=== PATIENT | female | born 1955 | race Two or more races ===

== ENCOUNTER → 2019-08-25 | Outpatient (CLI) | payer MEDICARE, OTHER | END | disposition home or self-care (01) | LOC: SPEC 17:45 | PROVIDERS: ATTEND Podiatrist Foot & Ankle Surgery | DX: L97.529 Non-pressure chronic ulcer of other part of left foot with unspecified severity (principal) | CPT/HCPCS: 87071; 87075 ==

== ENCOUNTER 2019-09-22 10:19 | Day surgery (SDC) | payer MEDICARE, OTHER ==
[~2019-09-22] VITALS: Ht 144.8 cm; Wt 61.0 kg
[~2019-09-22 10:19] MED LIST: AMLO5TAB10 PO; ASPI81TA50 PO; ATOR80TA72 PO; CLOP75TA PO; GABA-585 PO; HYDROmorphone 2 MG/ML VIAL IV PRN; IV RINGERS,LACTATED 1000ML 1,000 ML IV SCH; LOSA25TA54 PO; METO-239 PO; MORPHINE SULFATE 2 MG/ML VIAL. IV PRN; ONDANSETRON PF 4 MG/2 ML VIAL. IV PRN; PROCHLORPERAZINE 10 MG/2 ML VIAL. IV PRN; SEVE800T9 PO; VANCOMYCIN 1GM IVPB FOR OMNI 250 ML IV PRN; fentaNYL PF VIAL 100 MCG/2 ML VIAL IV PRN
[2019-09-22] MEDS ORDERED: POVIDONE-IODINE 10% TOPICAL OINTMENT 28GM TUBE. TP ONE (10:42)
[2019-09-22] MEDS ORDERED: LIDOCAINE 1% Multi-Dose 20 ML VIAL. ONE (10:42)
[2019-09-22] MEDS ORDERED: BUPIVACAINE MPF 0.5% 30 ML VIAL. ONE (10:43)
[2019-09-22] MEDS ORDERED: DEXAMETHASONE SOD PHOS 4 MG/ML VIAL ONE (10:43)
[2019-09-22] MEDS ORDERED: ONDANSETRON PF 4 MG/2 ML VIAL. ONE (11:15)
[2019-09-22] MEDS ORDERED: DEXAMETHASONE SOD PHOS 20 MG/5 ML VIAL. ONE (11:15)
[2019-09-22] MEDS ORDERED: PROPOFOL 20 ML IV ONE (11:15)
[2019-09-22] MEDS ORDERED: LIDOCAINE 2% PF 5 ML VIAL. ONE (11:15)
[2019-09-22] MEDS ORDERED: MIDAZOLAM HCL/PF 2 MG/2 ML VIAL. ONE (11:17)
[2019-09-22] MEDS ORDERED: fentaNYL PF VIAL 100 MCG/2 ML VIAL ONE (11:17)
[2019-09-22] MEDS ORDERED: INSULIN LISPRO 100 UNIT/ML 3ML VIAL for OP,RR ONLY. SQ PRN (11:45)
[2019-09-22] MEDS ORDERED: IV NORMAL SALINE 1000ML BAG 1,000 ML IV ONE (11:45)
[2019-09-22 11:53] LABS: BASO # 0.1 x10^3/uL (0.0-0.2); BASO % 0 % (0-3); EOS # 0.4 x10^3/uL (0.0-0.7); EOS % 4 % (0-3); HEMATOCRIT 31.9 % (36.0-47.0); HEMOGLOBIN 10.4 g/dL (12.0-15.5); LYMPH # 2.5 x10^3/uL (1.0-4.8); LYMPH % 21 % (24-48); MEAN CORPUSCULAR HEMOGLOBIN 30 pg (25-35); MEAN CORPUSCULAR HGB CONC 33 g/dL (31-37); MEAN CORPUSCULAR VOLUME 91 fL (79-100); MONO # 0.9 x10^3/uL (0.0-1.1); MONO % 8 % (0-9); NEUT % 67 % (31-73); PLATELET COUNT 254 x10^3/uL (140-400); RED BLOOD COUNT 3.52 x10^6/uL (3.50-5.40); RED CELL DISTRIBUTION WIDTH 14.1 % (11.5-14.5); WHITE BLOOD COUNT 11.9 x10^3/uL (4.0-11.0)
[2019-09-22 12:21] LABS: CALCIUM 8.6 mg/dL (8.5-10.1); GFR 5.1
[2019-09-22 12:27] LABS: ALBUMIN 2.4 g/dL (3.4-5.0); ALBUMIN/GLOBULIN RATIO 0.5 (1.0-1.7); TOTAL BILIRUBIN 0.3 mg/dL (0.2-1.0); TOTAL PROTEIN 7.6 g/dL (6.4-8.2)
[2019-09-22 12:28] LABS: POTASSIUM 3.3 mmol/L (3.5-5.1)
--- NOTE | 2019-09-22 13:14 | PDOC4 ---
OPERATIVE NOTE: Surgeon: shelly Pre operative diagnosis: osteomyelitis 2nd toe left Post op diagnosis same Procedure: 2nd digit amputation left foot Anesthesia: mac with local Hemostasis: none EBL: 5mL Pathology: 2nd toe left foot intraoperative findings: note 2nd metatarsal head with no signs of infection. no proximal sinus tract. do note reulceration to distal 5th ray with granular base and no purulent drainage. note dry hemmorrhagic blister to plantar lateral left heel with no signs of infection. Patient tolerated procedure and transferred to PACU with VSS and VSI to left foot PILAR ALVARADO DPM Sep 22, 2019 13:14
--- NOTE | 2019-09-22 13:21 | SSS ---
ADMIT DATE: 09/22/2019 CHIEF COMPLAINT: Preop evaluation for left second toe amputation. HISTORY OF PRESENT ILLNESS: The patient is a pleasant middle-aged female who has multiple comorbidities. She is on dialysis, but overall clinically looks pretty good. She has a left second toe lesion. Dr. Villegas, one of our podiatrists has scheduled her for surgery today. We have been requested for preoperative evaluation. Currently being examined in the outpatient holding area. PAST MEDICAL HISTORY: Diabetes, hypertension, hyperlipidemia, end-stage renal disease and she is on dialysis, right above-knee amputation and peripheral vascular disease. ALLERGIES: None. FAMILY HISTORY: Diabetes. SOCIAL HISTORY: She does not drink, smoke or take drugs. MEDICATIONS: Reviewed, please refer to the MRAD. REVIEW OF SYSTEMS: GENERAL: No history of weight change, weakness or fevers. SKIN: No bruising, hair changes or rashes. EYES: No blurred, double or loss of vision. NOSE AND THROAT: No history of nosebleeds, hoarseness or sore throat. HEART: No history of palpitations, chest pain or shortness of breath on exertion. LUNGS: Denies cough, hemoptysis, wheezing or shortness of breath. GASTROINTESTINAL: Denies changes in appetite, nausea, vomiting, diarrhea or constipation. GENITOURINARY: No history of frequency, urgency, hesitancy or nocturia. NEUROLOGIC: Denies history of numbness, tingling, tremor or weakness. PSYCHIATRIC: No history of panic, anxiety or depression. ENDOCRINE: No history of heat or cold intolerance, polyuria or polydipsia. EXTREMITIES: She complains of left second toe pain. She has a right above-knee amputation. LABORATORY DATA: Electrolytes are sodium 138, potassium 3.3, chloride 98, bicarbonate 30, BUN 36, creatinine 8. White count 11.9, hemoglobin 10.4, platelets 254. ASSESSMENT AND PLAN: Left second toe infection and very mild hypokalemia, chronic renal failure. Clinically, the patient is at low risk for intraoperative complications. We will go ahead and clear her for surgery. I told the nurses to please give her 20 of potassium after surgery. Postoperatively, she is going to need aggressive wound care. If she needs to be arranged for usp, we can assist with that. Thank you very much for allowing us to participate in the care of this nice lady. MONSTER COWAN DO DR: Rommel JOB#: [id number] / [id number]
--- NOTE | 2019-09-22 13:58 | OP ---
DATE OF SURGERY: 09/22/2019 PREOPERATIVE DIAGNOSIS: Osteomyelitis, second toe. POSTOPERATIVE DIAGNOSIS: Osteomyelitis, second toe. PROCEDURE: Second digit amputation, left foot. SURGEON: Kay Villegas DPM. ANESTHESIA: MAC with local. HEMOSTASIS: None used. HISTORY OF PRESENT ILLNESS: The patient is a 64-year-old female with diabetes, peripheral neuropathy, peripheral vascular disease and previous history of a right lower extremity amputation. The patient has had a chronic wound with gangrene in the second toe and developed osteomyelitis confirmed with MRI of the second digit. She has been recently revascularized by Dr. Dunlap, who informed no further intervention prior to surgery required. Discussed with the patient risks, benefits, complications to include delayed or nonhealing, need for further surgery, loss of toe, foot, limb or life, infection, numbness, tingling, burning, chronic pain, blood clots to the leg or the lung, need for further surgery. DESCRIPTION OF PROCEDURE: The patient was transported to the operating room via a cart and placed on the operating room table in supine position. Final verification of the patient's surgery and limb was performed. IV sedation was given per anesthesia and a second ray block was given with a 1:1 mixture of 1% lidocaine plain and 0.5% Marcaine plain, 10 mL total. A well-padded tourniquet was placed over the left ankle; however, this was not utilized with the case. The left foot was prepped and draped in the usual aseptic manner. Attention was directed to the second digit, where 2 converging semielliptical incisions were made at the base of the second digit. This was deepened to the level of the MPJ. The digit was disarticulated at the metatarsophalangeal joint and removed and sent in toto to pathology. An intraoperative wound culture was then taken and the small vessels were cauterized. The skin incision was reapproximated with 4-0 nylon and a postoperative dressing was applied with Adaptic, Betadine-soaked gauze, 4 x 4, Kerlix bandage and added a 4 x 4 with Betadine to the lateral foot at the distal fifth amputation site. Note, re-ulceration to the distal site measures 1 x 1 x 0.3 cm with no exposed bone, no pustular drainage, also note dry hemorrhagic blister to the lateral plantar heel with no breakdown, no cellulitis, no color, no fluctuance at this time. We will resume home health 3 times a week with a dermal bandage to the lateral foot and light Betadine painted to the incision of the second ray. Also, recommend minimal weightbearing in surgical shoe and strict decubitus precautions to prevent further breakdown of the heel. The patient tolerated both anesthesia and procedure well, was given Bactrim double strength to begin p.o. b.i.d. Note, she was given IV vancomycin 1 gram preoperatively and then also she was given home with [place] 325/5 take 1 tablet every 4 hours as needed for pain, dispensed #20. KAY VILLEGAS DPM DR: Josue JOB#: [id number] / [id number]
[2019-09-22] MEDS ORDERED: HYDR-3164 PO (14:06)
[2019-09-22] MEDS ORDERED: SULF1TAB24 PO (14:07)
[2019-09-22 14:09] VITALS: BP 152/54
[2019-09-22] MEDS ORDERED: HYDROcodone/APAP 5/325MG 1 TAB TABLET PO ONE (14:15)
--- NOTE | 2019-09-22 17:52 | RAD ---
3 views left foot HISTORY: Second toe amputation AP lateral oblique views Is been interpretation of the second toe. There is prior medication the fifth toe at the distal third of the fifth metatarsal. There is arterial calcifications. The remaining visualized osseous structures appear grossly intact. There is ossification of the plantar fascia. IMPRESSION: 1. Status post amputation of the second toe. 2. Prior amputation of the fifth toe through the distal fifth metatarsal. Electronically signed by: Akil De Leon III, MD (09/22/2019 5:49 PM) [id number]
--- NOTE | 2019-09-26 16:06 | PATHOLOGY ---
[facility] Accession Number: [id number] . 01 Material submitted: . toe - SECOND TOE LEFT FOOT. Modifiers: second, left . 01 Clinical history: . Osteomyelitis second toe . 02 Diagnosis: Left second toe amputation: - Acute cellulitis and osteomyelitis of distal toe, focal. (JPM:brandan; 09/26/2019) QMS 09/26/2019 1506 Local . 02 Comment: The proximal skin, subcutaneous tissue, and bone amputation margin are negative for inflammation. (JPM:brandan; 09/26/2019) . 02 Electronically signed: . Abdullahi Ashby MD, Pathologist NPI- [id number] . 01 Gross description: . The specimen is received in formalin, labeled "Ida Lynn, second toe left foot". Received is an amputated digit measuring 5.3 x 2.2 x 1.9 cm in greatest dimensions. The bone margin is smooth and concave in appearance, consistent with disarticulation. The bone and soft tissue margins are inked black. The nail is present displaying a pale whelan to light whelan and thickened appearance. On the medial aspect of the specimen adjacent to the nailbed, there is a poorly circumscribed irregular in contour and light brown lesion measuring 1.8 x 1.0 cm, which is 1.1 cm from the closest skin margin. The remainder the epidermal surface is dusky guevara-brown to white-guevara and flaky in appearance. A full-thickness longitudinal cross-section is submitted from proximal to distal aspects in cassettes A1 through A3, following decalcification. (CAA; 09/25/2019) QAC/QAC 09/26/2019 1320 Local . 02 Pathologist provided ICD-10: M86.172 . 02 CPT . 303259, [id number] Specimen Comment: A courtesy copy of this report has been sent to [phone], [phone] Specimen Comment: [id number] Specimen Comment: Report sent to / DR HORN Performed at: 01 [facility] [address] [id number] MD Vladimir Jacome MD Phone: [phone] Performed at: 02 [facility] [address] [place], [place] [id number] MD Abdullahi Ashby MD Phone: [phone]
== END 2019-09-22 14:41 | disposition home or self-care (01) ==
LOC: SURG 10:19
PROVIDERS: ATTEND Podiatrist Foot & Ankle Surgery
DX: M86.8X7 Other osteomyelitis, ankle and foot (principal); E11.22 Type 2 diabetes mellitus with diabetic chronic kidney disease; I12.0 Hypertensive chronic kidney disease with stage 5 chronic kidney disease or end stage renal disease; N18.6 End stage renal disease; E11.69 Type 2 diabetes mellitus with other specified complication; E11.42 Type 2 diabetes mellitus with diabetic polyneuropathy; E78.00 Pure hypercholesterolemia, unspecified; Z98.42 Cataract extraction status, left eye; Z87.891 Personal history of nicotine dependence; Z86.73 Personal history of transient ischemic attack (TIA), and cerebral infarction without residual deficits; Z98.41 Cataract extraction status, right eye; Z96.1 Presence of intraocular lens; Z79.4 Long term (current) use of insulin
CPT/HCPCS: 28820; 36415; 73630; 80053; 82962; 85025; 87071; 87075; A7015; J1815; J2001; J2250; J2405; J2704; J3010; J3370; J3490; J1100

== ENCOUNTER 2020-02-02 12:39 | Inpatient (IN) | payer MEDICARE, OTHER ==
[~2020-02-02] VITALS: Ht 106.7 cm; Wt 48.1 kg
[~2020-02-02 12:39] MED LIST changes: +HYDR-3164 PO; -HYDROmorphone 2 MG/ML VIAL IV PRN; -IV RINGERS,LACTATED 1000ML 1,000 ML IV SCH; -MORPHINE SULFATE 2 MG/ML VIAL. IV PRN; -ONDANSETRON PF 4 MG/2 ML VIAL. IV PRN; -PROCHLORPERAZINE 10 MG/2 ML VIAL. IV PRN; +SULF1TAB24 PO; -VANCOMYCIN 1GM IVPB FOR OMNI 250 ML IV PRN; -fentaNYL PF VIAL 100 MCG/2 ML VIAL IV PRN
[2020-02-02] MEDS ORDERED: IV NORMAL SALINE 500ML BAG 500 ML IV ONE ×3 (13:15→14:45)
[2020-02-02] MEDS ORDERED: VANCOMYCIN PER PHARMACY MC PRN (13:30)
[2020-02-02] MEDS ORDERED: PIP/TAZO PER PHARMACY MC PRN ×2 (13:30→16:00)
[2020-02-02 13:35] LABS: BASO # 0.1 x10^3/uL (0.0-0.2); BASO % 1 % (0-3); EOS % 0 % (0-3); HEMATOCRIT 40.3 % (36.0-47.0); HEMOGLOBIN 13.4 g/dL (12.0-15.5); LYMPH # 2.9 x10^3/uL (1.0-4.8); LYMPH % 16 % (24-48); MEAN CORPUSCULAR HEMOGLOBIN 33 pg (25-35); MEAN CORPUSCULAR HGB CONC 33 g/dL (31-37); MEAN CORPUSCULAR VOLUME 98 fL (79-100); MONO # 1.1 x10^3/uL (0.0-1.1); MONO % 6 % (0-9); NEUT # 14.1 x10^3/uL (1.8-7.7); NEUT % 77 % (31-73); PLATELET COUNT 310 x10^3/uL (140-400); RED CELL DISTRIBUTION WIDTH 17.5 % (11.5-14.5); WHITE BLOOD COUNT 18.2 x10^3/uL (4.0-11.0)
[2020-02-02 13:41] LABS: BASE EXCESS COOX -1 mmol/L (-3-3); HCO3 COOX 21 mmol/L (21-28); METHEMOGLOBIN 0.3 % (0.0-1.9); PCO2 COOX 28 mmHg (35-46); PO2 COOX 153 mmHg (65-108); SAT O2 COOX 99 % (92-99)
--- NOTE | 2020-02-02 13:50 | RAD ---
AP chest. HISTORY: Hypoxia AP view was taken of the chest. Lungs are free of infiltrates. Heart is normal in size. There is no effusion. There is mild bowel distention the abdomen. IMPRESSION: 1. No acute infiltrates. Electronically signed by: Dequan Murry MD (02/02/2020 1:48 PM) [id number]
[2020-02-02] MEDS ORDERED: PIPERACILLIN/TAZOBACTAM 2.25 GM in IV NORMAL SALINE 50ML 50 ML IV ONE (14:00)
[2020-02-02 14:21] LABS: ALBUMIN 1.7 g/dL (3.4-5.0); CALCIUM 8.2 mg/dL (8.5-10.1); CREATININE 6.5 mg/dL (0.6-1.0); DIRECT BILIRUBIN 0.1 mg/dL (0.0-0.2); GFR 6.4; MAGNESIUM 1.6 mg/dL (1.8-2.4); TOTAL BILIRUBIN 0.3 mg/dL (0.2-1.0); TOTAL PROTEIN 7.3 g/dL (6.4-8.2)
[2020-02-02 14:30] LABS: % BANDS 2 % (0-9); % LYMPHS 17 % (24-48); % MONOS 3 % (0-10); % SEGS 78 % (35-66); ANISOCYTOSIS SLIGHT; PLATELET CLUMP PRESENT; PLT ESTIMATE ADEQUATE (ADEQUATE)
[2020-02-02] MEDS ORDERED: VANCOMYCIN 1.5 GM in IV NORMAL SALINE 500ML BAG 500 ML IV ONE (14:30)
[2020-02-02 14:35] LABS: POTASSIUM 2.7 mmol/L (3.5-5.1)
--- NOTE | 2020-02-02 14:36 | RAD ---
CT HEAD INDICATION: Generalized weakness COMPARISON: None Available. Exposure: One or more of the following individualized dose reduction techniques were utilized for this examination: 1. Automated exposure control 2. Adjustment of the mA and/or kV according to patient size 3. Use of iterative reconstruction technique TECHNIQUE: 5 mm contiguous axial images were obtained from the skull base to the vertex in both bone and soft tissue algorithm. FINDINGS: Mild bilateral periventricular white matter hypodensities likely chronic small vessel ischemic disease. No evidence of acute intracranial hemorrhage. No extra-axial fluid collections. No mass effect or midline shift. Ventricular size is appropriate. Basal cisterns are patent. No fractures identified.Garrido-white differentiation is preserved.Globes and orbits are within normal limits. Paranasal sinuses and mastoid air cells are clear. IMPRESSION: No acute intracranial findings. Electronically signed by: Jhoan Wen MD (02/02/2020 2:34 PM) [id number]
[2020-02-02] MEDS ORDERED: NOREPINEPHRINE VIAL 8 MG in IV DEXTROSE 5% 250 ML IV ONE (14:45)
[2020-02-02] MEDS ORDERED: MAGNESIUM SULFATE 2GM 50 ML IV ONE (15:30)
[2020-02-02] MEDS ORDERED: 0.9 % SODIUM CHLORIDE 10 ML DISP.SYRIN. IV PRN (15:45)
[2020-02-02] MEDS ORDERED: DEXTROSE 50% 25 GM / 50ML DISP.SYRIN. IV PRN (16:00)
--- NOTE | 2020-02-02 16:10 | PDOC1 ---
History and Physical Date of Admission Date of Admission DATE: 02/02/20 TIME: 15:57 Identification/Chief Complaint Chief Complaint weakness Problems: (1) Hypotension Source Source: Chart review, Patient History of Present Illness History of Present Illness 64 year old female with hx of DM, ESRD on PD for 6 years, HTN, PVD s/p AKA bilaterally who presents to the ED with chief complaint of generalized weakness, nausea and vomiting for 2-3 days. decreased PO intake. no fever or respiratory symptoms. endorses a funny taste on her tongue that she has difficulty describing. no diarrhea. no sick contacts. was at the wound clinic for routine check up of her Left AKA that was done in December 2018. she wasn't feeling good so came to the ED for eval. found to have SBP in 50s. WBC 18k K 2.7 Mg 1.6 trop 0.[address] head negative. CVL to be placed by ER doctor. Past Medical History Past Medical History HTN, DM, ESRD on PD, PVD s/p bilateral AKA Past Surgical History Past Surgical History bilateral AKA Family History Family History reviewed and denies Social History Smoke: No ALCOHOL: none Drugs: None Current Medications Current Medications Current Medications Sodium Chloride 500 ml @ 500 mls/hr 1X ONCE IV Last administered on 02/02/20at 13:15; Start 02/02/20 at 13:15; Stop 02/02/20 at 14:14; Status DC Piperacillin Sod/ Tazobactam Sod (Zosyn Per Pharmacy) 1 each PRN DAILY PRN MC SEE COMMENTS; Start 02/02/20 at 13:30; Status UNV Vancomycin HCl (Vanco Per Pharmacy) 1 each PRN DAILY PRN MC SEE COMMENTS; Start 02/02/20 at 13:30; Status UNV Piperacillin Sod/ Tazobactam Sod 2.25 gm/Sodium Chloride 50 ml @ 100 mls/hr 1X ONCE IV Last administered on 02/02/20at 13:50; Start 02/02/20 at 14:00; Stop 02/02/20 at 14:29; Status DC Vancomycin HCl 1.5 gm/Sodium Chloride 500 ml @ 250 mls/hr 1X ONCE IV Last administered on 02/02/20at 13:50; Start 02/02/20 at 14:30; Stop 7/17/20 at 16:29 Potassium Chloride/Water 100 ml @ 50 mls/hr Q1H IV ; Start 02/02/20 at 15:00; Stop 02/02/20 at 16:59 Norepinephrine Bitartrate 8 mg/ Dextrose 258 ml @ 12.926 mls/ hr 1X ONCE IV ; Start 02/02/20 at 14:45; Stop 02/03/20 at 10:42 Sodium Chloride 500 ml @ 500 mls/hr 1X ONCE IV Last administered on 02/02/20at 13:50; Start 02/02/20 at 14:45; Stop 02/02/20 at 15:44; Status DC Sodium Chloride 500 ml @ 500 mls/hr 1X ONCE IV ; Start 02/02/20 at 14:45; Stop 02/02/20 at 15:44; Status DC Magnesium Sulfate 50 ml @ 25 mls/hr 1X ONCE IV ; Start 02/02/20 at 15:30; Stop 02/02/20 at 17:29 Acetaminophen (Tylenol) 650 mg PRN Q6HRS PRN PO Headaches, Temp > 101.5'; Start 02/02/20 at 15:45 Famotidine (Pepcid Vial) 20 mg QHS IVP ; Start 02/02/20 at 21:00 Info (Icu Electrolyte Protocol) 1 ea DAILY MC ; Start 02/03/20 at 09:00 Heparin Sodium (Porcine) (Heparin Sodium) 5,000 unit Q12HR SQ ; Start 02/02/20 at 21:00 Sodium Chloride (Normal Saline Flush) 3 ml QSHIFT PRN IV AFTER MEDS AND BLOOD DRAWS; Start 02/02/20 at 15:45 Senna/Docusate Sodium (Senna Plus) 1 tab BID PO ; Start 02/02/20 at 21:00 Potassium Chloride/Sodium Chloride 1,000 ml @ 0 mls/hr Q0M ONCE IV ; Start 02/02/20 at 16:00; Stop 02/02/20 at 16:01; Status UNV Piperacillin Sod/ Tazobactam Sod (Zosyn Per Pharmacy) 1 each PRN DAILY PRN MC SEE COMMENTS; Start 02/02/20 at 16:00; Status UNV Vancomycin HCl (Vanco Per Pharmacy) 1 each PRN DAILY PRN MC SEE COMMENTS; Start 02/02/20 at 16:00; Status UNV Insulin Human Lispro (HumaLOG) 0-7 UNITS TIDWMEALS SQ ; Start 02/02/20 at 17:00; Status UNV Dextrose (Dextrose 50%-Water Syringe) 12.5 gm PRN Q15MIN PRN IV SEE COMMENTS; Start 02/02/20 at 16:00; Status UNV Active Scripts Active Reported Bactrim Ds Tablet (Sulfamethoxazole/Trimethoprim) 1 Each Tablet 1 Tab PO BID 10 Days [place] 5-325 Tablet (Acetaminophen/Hydrocodone Bitart) 1 Each Tablet 1 Tab PO Q4-6HRS Amlodipine Besylate 5 Mg Tablet 5 Mg PO DAILY Aspir-Low (Aspirin) 81 Mg Tablet.dr 81 Mg PO DAILY Renvela (Sevelamer Carbonate) 800 Mg Tablet 800 Mg PO TIDWMEALS Atorvastatin Calcium 80 Mg Tablet 80 Mg PO QHS Gabapentin (Gabapentin) 100 Mg Capsule 100 Mg PO TID Losartan Potassium (Losartan Potassium) 25 Mg Tablet 25 Mg PO DAILY Metoprolol Succinate ( Xl ) (Metoprolol Succinate) 25 Mg Tab.er.24h 25 Mg PO BID Clopidogrel (Clopidogrel Bisulfate) 75 Mg Tablet 75 Mg PO DAILY Allergies Allergies: Coded Allergies: I S O L A T I O N *CONTACT* (Verified Allergy, Unknown, MRSA, 09/21/19) ROS Review of System CONSTITUTIONAL: No fever or chills EYES: No recent changes SKIN: No rash or itching CARDIOVASCULAR: No chest pain, syncope, palpitations, or edema RESPIRATORY: No SOB or cough GASTROINTESTINAL: No nausea, vomiting or abdominal pain NEUROLOGICAL: No headaches or weakness ENDOCRINE: No cold or heat intolerance GENITOURINARY: No urgency or frequency of urination MUSCULOSKELETAL: No back pain or joint pain LYMPHATICS: No enlarged lymph nodes PSYCHIATRIC: No anxiety or depression Physical Exam Physical Exam GENERAL: No apparent distress. Alert and oriented. lethargic HEENT: Head normocephalic, atraumatic. NECK: Supple LUNGS: Clear to auscultation. HEART: RRR, S1, S2 present, pulses intact ABDOMEN: Soft, positive bowel sounds. EXTREMITIES: No cyanosis or edema. NEUROLOGIC: Normal speech, normal tone PSYCHIATRIC: Normal affect, normal mood. SKIN: No ulceration. sacral dec stage 1 POA bilateral AKA + PD catheter Vitals Vitals Vital Signs Date Time Temp Pulse Resp B/P (MAP) Pulse Ox O2 Delivery O2 Flow Rate FiO2 02/02/20 13:35 Nasal Cannula 4.0 02/02/20 12:42 98.3 88 14 73/36 (48) 95 98.3 Labs Labs Laboratory Tests Test 02/02/20 13:00 02/02/20 13:20 02/02/20 13:35 White Blood Count 18.2 x10^3/uL (4.0-11.0) Red Blood Count 4.10 x10^6/uL (3.50-5.40) Hemoglobin 13.4 g/dL (12.0-15.5) Hematocrit 40.3 % (36.0-47.0) Mean Corpuscular Volume 98 fL (79-100) Mean Corpuscular Hemoglobin 33 pg (25-35) Mean Corpuscular Hemoglobin Concent 33 g/dL (31-37) Red Cell Distribution Width 17.5 % (11.5-14.5) Platelet Count 310 x10^3/uL (140-400) Neutrophils (%) (Auto) 77 % (31-73) Lymphocytes (%) (Auto) 16 % (24-48) Monocytes (%) (Auto) 6 % (0-9) Eosinophils (%) (Auto) 0 % (0-3) Basophils (%) (Auto) 1 % (0-3) Neutrophils # (Auto) 14.1 x10^3/uL (1.8-7.7) Lymphocytes # (Auto) 2.9 x10^3/uL (1.0-4.8) Monocytes # (Auto) 1.1 x10^3/uL (0.0-1.1) Eosinophils # (Auto) 0.0 x10^3/uL (0.0-0.7) Basophils # (Auto) 0.1 x10^3/uL (0.0-0.2) Segmented Neutrophils % 78 % (35-66) Band Neutrophils % 2 % (0-9) Lymphocytes % 17 % (24-48) Monocytes % 3 % (0-10) Platelet Estimate Adequate (ADEQUATE) Platelet Clumps, EDTA Present Anisocytosis Slight Sodium Level 136 mmol/L (136-145) Potassium Level 2.7 mmol/L (3.5-5.1) Chloride Level 93 mmol/L (98-107) Carbon Dioxide Level 26 mmol/L (21-32) Anion Gap 17 (6-14) Blood Urea Nitrogen 33 mg/dL (7-20) Creatinine 6.5 mg/dL (0.6-1.0) Estimated GFR (Cockcroft-Gault) 6.4 Glucose Level 201 mg/dL (70-99) Lactic Acid Level 5.1 mmol/L (0.4-2.0) Calcium Level 8.2 mg/dL (8.5-10.1) Magnesium Level 1.6 mg/dL (1.8-2.4) Total Bilirubin 0.3 mg/dL (0.2-1.0) Direct Bilirubin 0.1 mg/dL (0.0-0.2) Aspartate Amino Transf (AST/SGOT) 22 U/L (15-37) Alanine Aminotransferase (ALT/SGPT) 13 U/L (14-59) Alkaline Phosphatase 90 U/L (46-116) Troponin I Quantitative 0.160 ng/mL (0.000-0.055) OW-Tzp-K-Type Natriuretic Peptide 86216 pg/mL (0-124) Total Protein 7.3 g/dL (6.4-8.2) Albumin 1.7 g/dL (3.4-5.0) Lipase 46 U/L (73-393) O2 Saturation 99 % (92-99) Arterial Blood pH 7.51 (7.35-7.45) Arterial Blood pCO2 at Patient Temp 28 mmHg (35-46) Arterial Blood pO2 at Patient Temp 153 mmHg (65-108) Arterial Blood HCO3 21 mmol/L (21-28) Arterial Blood Base Excess -1 mmol/L (-3-3) Oxyhemoglobin 98.0 % Methemoglobin 0.3 % (0.0-1.9) Carbon Monoxide, Quantitative 0.3 % (0.0-1.9) FiO2 36 Laboratory Tests Test 02/02/20 13:00 02/02/20 13:20 02/02/20 13:35 White Blood Count 18.2 x10^3/uL (4.0-11.0) Red Blood Count 4.10 x10^6/uL (3.50-5.40) Hemoglobin 13.4 g/dL (12.0-15.5) Hematocrit 40.3 % (36.0-47.0) Mean Corpuscular Volume 98 fL (79-100) Mean Corpuscular Hemoglobin 33 pg (25-35) Mean Corpuscular Hemoglobin Concent 33 g/dL (31-37) Red Cell Distribution Width 17.5 % (11.5-14.5) Platelet Count 310 x10^3/uL (140-400) Neutrophils (%) (Auto) 77 % (31-73) Lymphocytes (%) (Auto) 16 % (24-48) Monocytes (%) (Auto) 6 % (0-9) Eosinophils (%) (Auto) 0 % (0-3) Basophils (%) (Auto) 1 % (0-3) Neutrophils # (Auto) 14.1 x10^3/uL (1.8-7.7) Lymphocytes # (Auto) 2.9 x10^3/uL (1.0-4.8) Monocytes # (Auto) 1.1 x10^3/uL (0.0-1.1) Eosinophils # (Auto) 0.0 x10^3/uL (0.0-0.7) Basophils # (Auto) 0.1 x10^3/uL (0.0-0.2) Segmented Neutrophils % 78 % (35-66) Band Neutrophils % 2 % (0-9) Lymphocytes % 17 % (24-48) Monocytes % 3 % (0-10) Platelet Estimate Adequate (ADEQUATE) Platelet Clumps, EDTA Present Anisocytosis Slight Sodium Level 136 mmol/L (136-145) Potassium Level 2.7 mmol/L (3.5-5.1) Chloride Level 93 mmol/L (98-107) Carbon Dioxide Level 26 mmol/L (21-32) Anion Gap 17 (6-14) Blood Urea Nitrogen 33 mg/dL (7-20) Creatinine 6.5 mg/dL (0.6-1.0) Estimated GFR (Cockcroft-Gault) 6.4 Glucose Level 201 mg/dL (70-99) Lactic Acid Level 5.1 mmol/L (0.4-2.0) Calcium Level 8.2 mg/dL (8.5-10.1) Magnesium Level 1.6 mg/dL (1.8-2.4) Total Bilirubin 0.3 mg/dL (0.2-1.0) Direct Bilirubin 0.1 mg/dL (0.0-0.2) Aspartate Amino Transf (AST/SGOT) 22 U/L (15-37) Alanine Aminotransferase (ALT/SGPT) 13 U/L (14-59) Alkaline Phosphatase 90 U/L (46-116) Troponin I Quantitative 0.160 ng/mL (0.000-0.055) EC-Luu-D-Type Natriuretic Peptide 68734 pg/mL (0-124) Total Protein 7.3 g/dL (6.4-8.2) Albumin 1.7 g/dL (3.4-5.0) Lipase 46 U/L (73-393) O2 Saturation 99 % (92-99) Arterial Blood pH 7.51 (7.35-7.45) Arterial Blood pCO2 at Patient Temp 28 mmHg (35-46) Arterial Blood pO2 at Patient Temp 153 mmHg (65-108) Arterial Blood HCO3 21 mmol/L (21-28) Arterial Blood Base Excess -1 mmol/L (-3-3) Oxyhemoglobin 98.0 % Methemoglobin 0.3 % (0.0-1.9) Carbon Monoxide, Quantitative 0.3 % (0.0-1.9) FiO2 36 VTE Prophylaxis Ordered VTE Prophylaxis Devices: Yes VTE Pharmacological Prophylaxi: Yes Assessment/Plan Assessment/Plan ASSESSMENT/PLAN Septic Shock, unclear source: admit to ICU, broad spectrum abx, blood cultures. check for covid 19. IVF. CVL placement; ICU consult Sacral Decub Ulcer stage 1 POA: wound care consult lactic acidosis: trend lactate Hypokalemia: replete IV HypoMagnesemia: replete IV ESRD on PD: nephro consult for dialysis Leukocytosis: trend CBC Nausea and Vomiting: supportive care Elevated Trop: likely demand ischemia; consult cards Elevated BNP: check echo DVT PPX GI PPX diet: CLD FULL CODE med rec pending review and completion. Justicifation of Admission Dx: Justifications for Admission: Justification of Admission Dx: Yes Sepsis: Infection GELY HOLDER MD Feb 02, 2020 16:10
--- NOTE | 2020-02-02 16:27 | RAD ---
EXAM: AP View of the chest DATE: 02/02/2020 4:00 PM INDICATION: Central line placement COMPARISON: 02/02/2020 FINDINGS: Right IJ vascular catheter tip terminates overlying the distal SVC. The heart is not enlarged. Mediastinal and hilar contours are normal. No focal parenchymal airspace opacity. No pleural effusion or pneumothorax. IMPRESSION: 1. Right IJ tip projects over the distal SVC. 2. No acute infiltrates are seen. Electronically signed by: Cain Liang MD (02/02/2020 4:24 PM) [id number]
--- NOTE | 2020-02-02 16:30 | PHYS DOC ---
Past Medical History Past Medical History: Diabetes-Type II, Renal Failure, Stroke Additional Past Medical Histor: Peritoneal dialysis Past Surgical History: Other Additional Past Surgical Histo: RIGHT AKA Smoking Status: Former Smoker Alcohol Use: None General Adult EDM: Chief Complaint: WEAKNESS/GENERALIZED HPI: HPI: 64-year-old female presents emergency department today with generalized weakness. Her weakness is been present for about a week. She reports not eating anything for about a week. Her daughter is here with her. She denies of focal weakness. She denies vision changes or fever. She denies cough or fever. She was just seen at wound clinic prior to coming in. On arrival she has a very low blood pressure. Location generalized. Duration constant. No alleviating factors. Review of systems negative for chest pain shortness of breath abdominal pain vomiting. Positive for decreased oral intake. All other review of systems negative. ED course: 64-year-old female presenting with generalized weakness found to be hypotensive in the emergency department. IV fluids and broad-spectrum antibiotics were initiated out of concern for possible sepsis. Patient was somewhat fluid responsive but required norepinephrine to bring her map above 65. CBC shows leukocytosis with segmented neutrophils increased. Chemistry panel shows low potassium and low CO2 on chemistry end-stage renal disease lactic acid of 5.1 with an elevated troponin and proBNP. ABG shows a pH is 7.51 with a normal PaO2. Head CT unremarkable. Initial chest x-ray shows no acute infiltrates. Repeat x-ray performed after central line placed. Will admit the patient to the ICU for further treatment and care. I spoke with Dr. Stinson who accepts patient for admission. Heart Score: Risk Factors: Risk Factors: DM, Current or recent (<one month) smoker, HTN, HLP, family history of CAD, obesity. Risk Scores: Score 0 - 3: 2.5% MACE over next 6 weeks - Discharge Home Score 4 - 6: 20.3% MACE over next 6 weeks - Admit for Clinical Observation Score 7 - 10: 72.7% MACE over next 6 weeks - Early Invasive Strategies Current Medications: Current Medications Medications (Trade) Dose Ordered Sig/Juanito Start Time Stop Time Status Last Admin Dose Admin Acetaminophen (Tylenol) 650 mg PRN Q6HRS PRN 02/02/20 15:45 Aspirin (Ecotrin) 81 mg DAILY 02/03/20 09:00 UNV Clopidogrel Bisulfate (Plavix) 75 mg DAILY 02/03/20 09:00 UNV Dextrose (Dextrose 50%-Water Syringe) 12.5 gm PRN Q15MIN PRN 02/02/20 16:00 Famotidine (Pepcid Vial) 20 mg QHS 02/02/20 21:00 Heparin Sodium (Porcine) (Heparin Sodium) 5,000 unit Q12HR 02/02/20 21:00 Info (Icu Electrolyte Protocol) 1 ea DAILY 02/03/20 09:00 Insulin Human Lispro (HumaLOG) 0-7 UNITS TIDWMEALS 02/02/20 17:00 Magnesium Sulfate 50 ml @ 25 mls/hr 1X ONCE 02/02/20 15:30 02/02/20 17:29 Norepinephrine Bitartrate 8 mg/ Dextrose 258 ml @ 12.926 mls/ hr 1X ONCE 02/02/20 14:45 02/03/20 10:42 Piperacillin Sod/ Tazobactam Sod (Zosyn Per Pharmacy) 1 each PRN DAILY PRN 02/02/20 16:00 UNV Piperacillin Sod/ Tazobactam Sod 2.25 gm/Sodium Chloride 50 ml @ 100 mls/hr 1X ONCE 02/02/20 14:00 02/02/20 14:29 DC 02/02/20 13:50 100 MLS/HR Potassium Chloride/Sodium Chloride 1,000 ml @ 0 mls/hr Q0M ONCE 02/02/20 16:00 02/02/20 16:01 UNV Potassium Chloride/Water 100 ml @ 50 mls/hr Q1H 02/02/20 15:00 02/02/20 16:59 Senna/Docusate Sodium (Senna Plus) 1 tab BID 02/02/20 21:00 Sodium Chloride (Normal Saline Flush) 3 ml QSHIFT PRN 02/02/20 15:45 Vancomycin HCl (Vanco Per Pharmacy) 1 each PRN DAILY PRN 02/02/20 16:00 UNV Vancomycin HCl 1.5 gm/Sodium Chloride 500 ml @ 250 mls/hr 1X ONCE 02/02/20 14:30 02/02/20 16:29 02/02/20 13:50 250 MLS/HR Allergies: Allergies: Allergies Coded Allergies Type Severity Reaction Last Updated Verified I S O L A T I O N *CONTACT* Allergy Unknown MRSA 09/21/19 Yes Physical Exam: PE: Constitutional: Well developed, well nourished, no acute distress, non-toxic appearance. [] HENT: Normocephalic, atraumatic, bilateral external ears normal, oropharynx moist, no oral exudates, nose normal. [] Eyes: PERRLA, EOMI, conjunctiva normal, no discharge. [] Neck: Normal range of motion, no tenderness, supple, no stridor. [] Cardiovascular:Heart rate regular rhythm, no murmur [] Lungs & Thorax: Bilateral breath sounds clear to auscultation [] Abdomen: Bowel sounds normal, soft, no tenderness, no masses, no pulsatile masses. [] Skin: Warm, dry, no erythema, no rash. [] Back: No tenderness, no CVA tenderness. [] Extremities: No tenderness, no cyanosis, no clubbing, ROM intact, no edema. [] Neurologic: Alert and oriented X 3, normal motor function, normal sensory function, no focal deficits noted. [] Psychologic: Affect normal, judgement normal, mood normal. [] Current Patient Data: Labs: Laboratory Tests Test 02/02/20 13:00 02/02/20 13:20 02/02/20 13:35 White Blood Count 18.2 x10^3/uL (4.0-11.0) H Red Blood Count 4.10 x10^6/uL (3.50-5.40) Hemoglobin 13.4 g/dL (12.0-15.5) Hematocrit 40.3 % (36.0-47.0) Mean Corpuscular Volume 98 fL (79-100) Mean Corpuscular Hemoglobin 33 pg (25-35) Mean Corpuscular Hemoglobin Concent 33 g/dL (31-37) Red Cell Distribution Width 17.5 % (11.5-14.5) H Platelet Count 310 x10^3/uL (140-400) Neutrophils (%) (Auto) 77 % (31-73) H Lymphocytes (%) (Auto) 16 % (24-48) L Monocytes (%) (Auto) 6 % (0-9) Eosinophils (%) (Auto) 0 % (0-3) Basophils (%) (Auto) 1 % (0-3) Neutrophils # (Auto) 14.1 x10^3/uL (1.8-7.7) H Lymphocytes # (Auto) 2.9 x10^3/uL (1.0-4.8) Monocytes # (Auto) 1.1 x10^3/uL (0.0-1.1) Eosinophils # (Auto) 0.0 x10^3/uL (0.0-0.7) Basophils # (Auto) 0.1 x10^3/uL (0.0-0.2) Segmented Neutrophils % 78 % (35-66) H Band Neutrophils % 2 % (0-9) Lymphocytes % 17 % (24-48) L Monocytes % 3 % (0-10) Platelet Estimate Adequate (ADEQUATE) Platelet Clumps, EDTA Present Anisocytosis Slight Sodium Level 136 mmol/L (136-145) Potassium Level 2.7 mmol/L (3.5-5.1) *L Chloride Level 93 mmol/L (98-107) L Carbon Dioxide Level 26 mmol/L (21-32) Anion Gap 17 (6-14) H Blood Urea Nitrogen 33 mg/dL (7-20) H Creatinine 6.5 mg/dL (0.6-1.0) H Estimated GFR (Cockcroft-Gault) 6.4 Glucose Level 201 mg/dL (70-99) H Lactic Acid Level 5.1 mmol/L (0.4-2.0) *H Calcium Level 8.2 mg/dL (8.5-10.1) L Magnesium Level 1.6 mg/dL (1.8-2.4) L Total Bilirubin 0.3 mg/dL (0.2-1.0) Direct Bilirubin 0.1 mg/dL (0.0-0.2) Aspartate Amino Transferase (AST) 22 U/L (15-37) Alanine Aminotransferase (ALT) 13 U/L (14-59) L Alkaline Phosphatase 90 U/L (46-116) Troponin I Quantitative 0.160 ng/mL (0.000-0.055) [id number]-Type Natriuretic Peptide 46928 pg/mL (0-124) H Total Protein 7.3 g/dL (6.4-8.2) Albumin 1.7 g/dL (3.4-5.0) L Lipase 46 U/L (73-393) L O2 Saturation 99 % (92-99) Arterial Blood pH 7.51 (7.35-7.45) H Arterial Blood pCO2 at Patient Temp 28 mmHg (35-46) L Arterial Blood pO2 at Patient Temp 153 mmHg (65-108) H Arterial Blood HCO3 21 mmol/L (21-28) Arterial Blood Base Excess -1 mmol/L (-3-3) Oxyhemoglobin 98.0 % Methemoglobin 0.3 % (0.0-1.9) Carbon Monoxide, Quantitative 0.3 % (0.0-1.9) FiO2 36 Laboratory Tests 02/02/20 13:00 Laboratory Tests 02/02/20 13:20 Vital Signs: Vital Signs Date Time Temp Pulse Resp B/P (MAP) Pulse Ox O2 Delivery O2 Flow Rate FiO2 02/02/20 13:35 Nasal Cannula 4.0 02/02/20 12:42 98.3 88 14 73/36 (48) 95 98.3 EKG: EKG: [] Radiology/Procedures: Radiology/Procedures: [] Course & Med Decision Making: Course & Med Decision Making Pertinent Labs and Imaging studies reviewed. (See chart for details) [] Dragon Disclaimer: Dragon Disclaimer: This electronic medical record was generated, in whole or in part, using a voice recognition dictation system. Departure Departure Impression: Primary Impression: Hypotension Additional Impression: Septic shock Disposition: ADMITTED INPATIENT Admitting Physician: KATHERINE Condition: GUARDED Referrals: REBECA HORN MD (PCP) Justicifation of Admission Dx: Justifications for Admission: Justification of Admission Dx: Yes Sepsis: Infection Central Line Placement Proc Central Line Indication: Vascular access Consent: The patient provided consent for this procedure. Procedure: The patient was positioned appropriately and the skin over the right IJ was prepped and draped in a sterile fashion. Local anesthesia was used. Ultrasound guidance utilized. A large bore needle was used to identify the vein. A guide wire was then inserted into the vein through the needle. A triple lumen catheter was then inserted into the vessel over the guide wire using the Seldinger technique. All ports showed good, free flowing blood return and were flushed with saline solution. The catheter was then securely fastened to the skin with sutures and covered with a sterile dressing. A post procedure X-ray was ordered. The patient tolerated the procedure well. Complications: none. Critical Care Time Critical care time spent was 45 minutes exclusive of procedures. Time was spent evaluating the patient, ordering the administration of medications, reevaluating the patient, discussing with the admitting provider and documenting. BUNNY RICHARDSON MD Feb 02, 2020 16:30
[2020-02-02] MEDS: POTASSIUM CHLORIDE 10MEQ 100 ML IV SCH ×2 (17:08→19:24)
[2020-02-02] MEDS ORDERED: POTASSIUM CL 40MEQ IN 0.9%NACL 1,000 ML IV ONE (18:00)
[2020-02-02] MEDS: VANCOMYCIN PER PHARMACY MC PRN (18:03)
[2020-02-02 18:30] VITALS: BP 57/47
[2020-02-02 18:45] VITALS: BP 134/58
[2020-02-02 20:00] VITALS: BP 129/65
[2020-02-02] MEDS: INSULIN LISPRO 300 UNITS/3 ML VIAL. SQ SCH (20:00)
[2020-02-02 21:00] VITALS: BP 129/67
[2020-02-02] MEDS: ATORVASTATIN CALCIUM 40 MG TABLET. PO SCH (21:07)
[2020-02-02] MEDS: ACETAMINOPHEN 325 MG TABLET. PO PRN (21:07)
[2020-02-02] MEDS: SENNOSIDES/DOCUSATE 8.6/50MG TABLET. PO SCH (21:07)
[2020-02-02] MEDS: HEPARIN for SUB-Q USE 5,000 UNIT/ML VIAL. SQ SCH (21:08)
[2020-02-02] MEDS: FAMOTIDINE 20 MG/2 ML VIAL IVP SCH (21:18)
[2020-02-02] MEDS: PIPERACILLIN/TAZOBACTAM 2.25 GM in IV NORMAL SALINE 50ML 50 ML IV SCH (21:19)
[2020-02-02 22:00] VITALS: BP 119/66
[2020-02-02 23:00] VITALS: BP 136/83
[2020-02-03] VITALS (24 sets, daily range): BP systolic 74–151; BP diastolic 48–85
[2020-02-03] MEDS: PIPERACILLIN/TAZOBACTAM 2.25 GM in IV NORMAL SALINE 50ML 50 ML IV SCH ×3 (05:23→22:13)
[2020-02-03] MEDS: ACETAMINOPHEN 325 MG TABLET. PO PRN ×2 (05:24→17:55)
[2020-02-03 06:02] LABS: BASO # 0.1 x10^3/uL (0.0-0.2); BASO % 1 % (0-3); EOS # 0.2 x10^3/uL (0.0-0.7); EOS % 1 % (0-3); HEMATOCRIT 29.2 % (36.0-47.0); HEMOGLOBIN 9.5 g/dL (12.0-15.5); LYMPH # 3.2 x10^3/uL (1.0-4.8); LYMPH % 22 % (24-48); MEAN CORPUSCULAR HEMOGLOBIN 32 pg (25-35); MEAN CORPUSCULAR HGB CONC 33 g/dL (31-37); MEAN CORPUSCULAR VOLUME 99 fL (79-100); MONO % 7 % (0-9); NEUT # 9.7 x10^3/uL (1.8-7.7); NEUT % 68 % (31-73); PLATELET COUNT 205 x10^3/uL (140-400); RED BLOOD COUNT 2.96 x10^6/uL (3.50-5.40); RED CELL DISTRIBUTION WIDTH 17.5 % (11.5-14.5); WHITE BLOOD COUNT 14.3 x10^3/uL (4.0-11.0)
[2020-02-03 06:34] LABS: ALBUMIN 1.4 g/dL (3.4-5.0); CREATININE 5.9 mg/dL (0.6-1.0); DIRECT BILIRUBIN 0.2 mg/dL (0.0-0.2); GFR 7.2; POTASSIUM 3.5 mmol/L (3.5-5.1); TOTAL BILIRUBIN 0.4 mg/dL (0.2-1.0); TOTAL PROTEIN 5.1 g/dL (6.4-8.2)
[2020-02-03] MEDS: INSULIN LISPRO 300 UNITS/3 ML VIAL. SQ SCH ×3 (08:00→17:00)
--- NOTE | 2020-02-03 08:01 | CONS ---
DATE OF CONSULTATION: I was asked to see this 64-year-old lady for sepsis. HISTORY OF PRESENT ILLNESS: The patient has history of 06-qvdn-oldy smoking, stopped smoking about 20 years ago. She does not have any history of pulmonary disease. She presented to the Emergency Room for weakness. Her blood pressure was low. The patient was given IV fluid. Now, she is on small amount of Levophed. She is alert and oriented. She denies shortness of breath. She is on room air. She denies cough. She has pain all over. PAST MEDICAL HISTORY: End-stage renal disease, on peritoneal dialysis; diabetes mellitus; history of CVA; status post above-knee amputation. ALLERGIES: No known drug allergies. Apparently she has history of MRSA. MEDICATIONS: Currently, she is on vancomycin, Plavix, aspirin, Zosyn, Lipitor, heparin 5000 units every 12, Pepcid. SOCIAL HISTORY: History of 62-emhb-ddol smoking, quit smoking 20 years ago. FAMILY HISTORY: Hypertension. REVIEW OF SYSTEMS: As mentioned as above. She did not receive peritoneal dialysis last month per Nephrology. Other systems are otherwise negative. PHYSICAL EXAMINATION: GENERAL: This is a well-developed lady. VITAL SIGNS: Her O2 saturation on room air is 100%, respiratory rate 22, heart rate 65, blood pressure 105/55, temperature 97.7. HEENT: Normocephalic, atraumatic. Pupils equal, round, reactive to light. Nose is clear. Throat is clear. NECK: There is no lymphadenopathy or thyromegaly. CARDIOVASCULAR: Regular rate and rhythm. PMI is nondisplaced. CHEST: Inspection is normal. LUNGS: Clear to auscultation. ABDOMEN: Soft. EXTREMITIES: Status post bilateral above-knee amputation. There is a dressing on left stump. NEUROLOGIC: Alert and oriented. LABORATORY DATA: I reviewed the following lab data: Chest x-ray There is no infiltrate. WBC on admission 18.2, now 14.3; hemoglobin 9.5; platelet 205. Sodium 139; potassium on admission 2.7, this morning 3.5; chloride 103, CO2 of 22, BUN 34, creatinine 5.9. Lactic acid 5.1 on admission, repeat then this morning 1.2. ABG: pH 7.51, pCO2 of 28, pO2 of 153 on 36% FIO2. On admission, troponin is 0.16, repeat this morning 0.26. IMPRESSION: 1. Sepsis, source unknown. Her chest x-ray does not show infiltrate. She does not make urine. 2. End-stage renal disease, on peritoneal dialysis. 3. Electrolyte imbalance. 4. Hypokalemia, questionable etiology. 5. Weakness, questionable etiology. 6. Peripheral vascular disease, status post bilateral above-knee amputation. 7. Diabetes mellitus. 8. History of hypertension. 9. COVID-19 PUI. PLAN AND RECOMMENDATIONS: 1. Titrate FiO2 to keep O2 saturation 92%. 2. Heparin for DVT prophylaxis. 3. Pepcid for stress ulcer prophylaxis. 4. Continue antibiotic. Follow up cultures. 5. Nephrology is on the case. 6. Her BNP on admission was 15,939, peritoneal dialysis per Nephrology. 7. Monitor troponin could be due to demand ischemia. 8. Follow up COVID-19 testing. 9. Continue pressors to keep MAP more than 65. 10. Cardiology is consulted. Thank you very much for allowing me to participate in care of this very nice lady. The findings and recommendations were discussed with the patient and RN. BUNNY GANN M.D. : [place]/[facility]ionicio JOB#: [id number] / [id number]
[2020-02-03] MEDS: HEPARIN for SUB-Q USE 5,000 UNIT/ML VIAL. SQ SCH ×2 (08:23→21:14)
[2020-02-03] MEDS: CLOPIDOGREL BISULFATE 75 MG TABLET PO SCH ×2 (08:23→09:00)
[2020-02-03] MEDS: ASPIRIN ENTERIC COATED 81 MG TABLET.DR. PO SCH ×2 (08:23→09:00)
[2020-02-03] MEDS: SENNOSIDES/DOCUSATE 8.6/50MG TABLET. PO SCH ×2 (09:00→21:14)
[2020-02-03] MEDS: ELECTROLYTE (ICU) PROTOCOL. MC SCH (09:00)
--- NOTE | 2020-02-03 09:15 | NUR ---
Patient is refusing to take medication, expressed to her the need for the medication and I was told "leave me alone", I am sleeping. Will retry in a hour.
--- NOTE | 2020-02-03 09:31 | NUR ---
K+ 3.5, Mg 2.2, Per protocol do no administer as ICU protocol if SCr above 1.7. Dr. Stinson has put in referral to Nephrology. Pending orders from that bedside visit.
--- NOTE | 2020-02-03 10:30 | NUR ---
Patient still refusing medication from this morning.
--- NOTE | 2020-02-03 11:05 | PDOC2 ---
CONSULT Date of Consult Date of Consult DATE: 02/03/20 TIME: 10:59 Reason for Consult Reason for Consult: Elevated troponin Referring Physician Referring Physician: Dr. Stinson Identification/Chief Complaint Chief Complaint Weakness Source Source: Chart review, Patient History of Present Illness Reason for Visit: The patient is a 64-year-old female with a history of end-stage renal disease on peritoneal dialysis who was admitted through the emergency room with chief complaints of weakness. Patient's blood pressure was significantly decreased with systolic pressures in the 50s. Initial work-up showed a chest x-ray with no infiltrates and a head CT scan with no acute changes. EKG showed no acute ischemic changes. Troponin was minimally elevated at 0.268. Patient been treated with antibiotics and overnight has mildly improved. She has had no significant arrhythmias. Past Medical History Cardiovascular: HTN CENTRAL NERVOUS SYSTEM: CVA Renal/: Chronic renal failure Endocrine: Diabetes Past Surgical History Past Surgical History: Other (Right AKA, peritoneal dialysis access) Family History Family History: Hypertension Social History Quit ALCOHOL: none Drugs: None Current Problem List Problem List Problems Medical Problems: (1) Septic shock Status: Acute Current Medications Current Medications Current Medications Sodium Chloride 500 ml @ 500 mls/hr 1X ONCE IV Last administered on 02/02/20at 13:15; Start 02/02/20 at 13:15; Stop 02/02/20 at 14:14; Status DC Piperacillin Sod/ Tazobactam Sod (Zosyn Per Pharmacy) 1 each PRN DAILY PRN MC SEE COMMENTS; Start 02/02/20 at 13:30; Status UNV Vancomycin HCl (Vanco Per Pharmacy) 1 each PRN DAILY PRN MC SEE COMMENTS; Start 02/02/20 at 13:30; Status UNV Piperacillin Sod/ Tazobactam Sod 2.25 gm/Sodium Chloride 50 ml @ 100 mls/hr 1X ONCE IV Last administered on 02/02/20at 13:50; Start 02/02/20 at 14:00; Stop 02/02/20 at 14:29; Status DC Vancomycin HCl 1.5 gm/Sodium Chloride 500 ml @ 250 mls/hr 1X ONCE IV Last administered on 02/02/20at 13:50; Start 02/02/20 at 14:30; Stop 02/02/20 at 16:29; Status DC Potassium Chloride/Water 100 ml @ 50 mls/hr Q1H IV Last administered on 02/02/20at 19:24; Start 02/02/20 at 15:00; Stop 02/02/20 at 16:59; Status DC Norepinephrine Bitartrate 8 mg/ Dextrose 258 ml @ 12.926 mls/ hr 1X ONCE IV ; Start 02/02/20 at 14:45; Stop 02/03/20 at 10:42; Status DC Sodium Chloride 500 ml @ 500 mls/hr 1X ONCE IV Last administered on 02/02/20at 13:50; Start 02/02/20 at 14:45; Stop 02/02/20 at 15:44; Status DC Sodium Chloride 500 ml @ 500 mls/hr 1X ONCE IV Last administered on 02/02/20at 16:29; Start 02/02/20 at 14:45; Stop 02/02/20 at 15:44; Status DC Magnesium Sulfate 50 ml @ 25 mls/hr 1X ONCE IV Last administered on 02/02/20at 17:07; Start 02/02/20 at 15:30; Stop 02/02/20 at 17:29; Status DC Acetaminophen (Tylenol) 650 mg PRN Q6HRS PRN PO Headaches, Temp > 101.5' Last administered on 02/03/20at 05:24; Start 02/02/20 at 15:45 Famotidine (Pepcid Vial) 20 mg QHS IVP Last administered on 02/02/20at 21:18; Start 02/02/20 at 21:00 Info (Icu Electrolyte Protocol) 1 ea DAILY MC ; Start 02/03/20 at 09:00 Heparin Sodium (Porcine) (Heparin Sodium) 5,000 unit Q12HR SQ Last administered on 02/03/20at 08:23; Start 02/02/20 at 21:00 Sodium Chloride (Normal Saline Flush) 3 ml QSHIFT PRN IV AFTER MEDS AND BLOOD DRAWS; Start 02/02/20 at 15:45 Senna/Docusate Sodium (Senna Plus) 1 tab BID PO Last administered on 02/02/20at 21:07; Start 02/02/20 at 21:00 Potassium Chloride/Sodium Chloride 1,000 ml @ 100 mls/hr 1X ONCE IV Last administered on 02/02/20at 19:23; Start 02/02/20 at 18:00; Stop 02/03/20 at 03:59; Status DC Piperacillin Sod/ Tazobactam Sod (Zosyn Per Pharmacy) 1 each PRN DAILY PRN MC SEE COMMENTS; Start 02/02/20 at 16:00 Vancomycin HCl (Vanco Per Pharmacy) 1 each PRN DAILY PRN MC SEE COMMENTS Last administered on 02/02/20at 18:03; Start 02/02/20 at 16:00 Insulin Human Lispro (HumaLOG) 0-7 UNITS TIDWMEALS SQ ; Start 02/02/20 at 17:00 Dextrose (Dextrose 50%-Water Syringe) 12.5 gm PRN Q15MIN PRN IV SEE COMMENTS; Start 02/02/20 at 16:00 Aspirin (Ecotrin) 81 mg DAILY PO Last administered on 02/03/20at 08:23; Start 02/03/20 at 09:00 Clopidogrel Bisulfate (Plavix) 75 mg DAILY PO Last administered on 02/03/20at 08:23; Start 02/03/20 at 09:00 Atorvastatin Calcium (Lipitor) 80 mg QHS PO Last administered on 02/02/20at 21:07; Start 02/02/20 at 21:00 Piperacillin Sod/ Tazobactam Sod 2.25 gm/Sodium Chloride 50 ml @ 100 mls/hr Q8HRS IV Last administered on 02/03/20at 05:23; Start 02/02/20 at 22:00 Vancomycin HCl (Vancomycin Random Level) 1 each 1X ONCE MC ; Start 02/04/20 at 13:00; Stop 02/04/20 at 13:01 Active Scripts Active Reported Bactrim Ds Tablet (Sulfamethoxazole/Trimethoprim) 1 Each Tablet 1 Tab PO BID 10 Days Traphill 5-325 Tablet (Acetaminophen/Hydrocodone Bitart) 1 Each Tablet 1 Tab PO Q4- 6HRS Amlodipine Besylate 5 Mg Tablet 5 Mg PO DAILY Aspir-Low (Aspirin) 81 Mg Tablet.dr 81 Mg PO DAILY Renvela (Sevelamer Carbonate) 800 Mg Tablet 800 Mg PO TIDWMEALS Atorvastatin Calcium 80 Mg Tablet 80 Mg PO QHS Gabapentin (Gabapentin) 100 Mg Capsule 100 Mg PO TID Losartan Potassium (Losartan Potassium) 25 Mg Tablet 25 Mg PO DAILY Metoprolol Succinate ( Xl ) (Metoprolol Succinate) 25 Mg Tab.er.24h 25 Mg PO BID Clopidogrel (Clopidogrel Bisulfate) 75 Mg Tablet 75 Mg PO DAILY Allergies Allergies: Coded Allergies: I S O L A T I O N *CONTACT* (Verified Allergy, Unknown, MRSA, 09/21/19) ROS General: YES: Fatigue, Malaise Physical Exam General: mild distress Lungs: Other (Moderately decreased breath sounds) Heart: Regular rate Abdomen: Normal bowel sounds Vitals VITALS Vital Signs Date Time Temp Pulse Resp B/P (MAP) Pulse Ox O2 Delivery O2 Flow Rate FiO2 02/03/20 10:00 60 21 101/50 (67) 100 Room Air 02/03/20 08:00 2.0 02/03/20 08:00 98.0 98.0 Labs Labs Laboratory Tests Test 02/02/20 13:00 02/02/20 13:20 02/02/20 13:35 02/02/20 18:30 White Blood Count 18.2 x10^3/uL (4.0-11.0) Red Blood Count 4.10 x10^6/uL (3.50-5.40) Hemoglobin 13.4 g/dL (12.0-15.5) Hematocrit 40.3 % (36.0-47.0) Mean Corpuscular Volume 98 fL (79-100) Mean Corpuscular Hemoglobin 33 pg (25-35) Mean Corpuscular Hemoglobin Concent 33 g/dL (31-37) Red Cell Distribution Width 17.5 % (11.5-14.5) Platelet Count 310 x10^3/uL (140-400) Neutrophils (%) (Auto) 77 % (31-73) Lymphocytes (%) (Auto) 16 % (24-48) Monocytes (%) (Auto) 6 % (0-9) Eosinophils (%) (Auto) 0 % (0-3) Basophils (%) (Auto) 1 % (0-3) Neutrophils # (Auto) 14.1 x10^3/uL (1.8-7.7) Lymphocytes # (Auto) 2.9 x10^3/uL (1.0-4.8) Monocytes # (Auto) 1.1 x10^3/uL (0.0-1.1) Eosinophils # (Auto) 0.0 x10^3/uL (0.0-0.7) Basophils # (Auto) 0.1 x10^3/uL (0.0-0.2) Segmented Neutrophils % 78 % (35-66) Band Neutrophils % 2 % (0-9) Lymphocytes % 17 % (24-48) Monocytes % 3 % (0-10) Platelet Estimate Adequate (ADEQUATE) Platelet Clumps, EDTA Present Anisocytosis Slight Sodium Level 136 mmol/L (136-145) Potassium Level 2.7 mmol/L (3.5-5.1) Chloride Level 93 mmol/L (98-107) Carbon Dioxide Level 26 mmol/L (21-32) Anion Gap 17 (6-14) Blood Urea Nitrogen 33 mg/dL (7-20) Creatinine 6.5 mg/dL (0.6-1.0) Estimated GFR (Cockcroft-Gault) 6.4 Glucose Level 201 mg/dL (70-99) Lactic Acid Level 5.1 mmol/L (0.4-2.0) 2.0 mmol/L (0.4-2.0) Calcium Level 8.2 mg/dL (8.5-10.1) Magnesium Level 1.6 mg/dL (1.8-2.4) Total Bilirubin 0.3 mg/dL (0.2-1.0) Direct Bilirubin 0.1 mg/dL (0.0-0.2) Aspartate Amino Transf (AST/SGOT) 22 U/L (15-37) Alanine Aminotransferase (ALT/SGPT) 13 U/L (14-59) Alkaline Phosphatase 90 U/L (46-116) Troponin I Quantitative 0.160 ng/mL (0.000-0.055) YS-Coj-J-Type Natriuretic Peptide 24741 pg/mL (0-124) Total Protein 7.3 g/dL (6.4-8.2) Albumin 1.7 g/dL (3.4-5.0) Lipase 46 U/L (73-393) O2 Saturation 99 % (92-99) Arterial Blood pH 7.51 (7.35-7.45) Arterial Blood pCO2 at Patient Temp 28 mmHg (35-46) Arterial Blood pO2 at Patient Temp 153 mmHg (65-108) Arterial Blood HCO3 21 mmol/L (21-28) Arterial Blood Base Excess -1 mmol/L (-3-3) Oxyhemoglobin 98.0 % Methemoglobin 0.3 % (0.0-1.9) Carbon Monoxide, Quantitative 0.3 % (0.0-1.9) FiO2 36 Test 02/02/20 22:10 02/03/20 05:45 02/03/20 08:30 Glucose (Fingerstick) 135 mg/dL (70-99) 83 mg/dL (70-99) White Blood Count 14.3 x10^3/uL (4.0-11.0) Red Blood Count 2.96 x10^6/uL (3.50-5.40) Hemoglobin 9.5 g/dL (12.0-15.5) Hematocrit 29.2 % (36.0-47.0) Mean Corpuscular Volume 99 fL (79-100) Mean Corpuscular Hemoglobin 32 pg (25-35) Mean Corpuscular Hemoglobin Concent 33 g/dL (31-37) Red Cell Distribution Width 17.5 % (11.5-14.5) Platelet Count 205 x10^3/uL (140-400) Neutrophils (%) (Auto) 68 % (31-73) Lymphocytes (%) (Auto) 22 % (24-48) Monocytes (%) (Auto) 7 % (0-9) Eosinophils (%) (Auto) 1 % (0-3) Basophils (%) (Auto) 1 % (0-3) Neutrophils # (Auto) 9.7 x10^3/uL (1.8-7.7) Lymphocytes # (Auto) 3.2 x10^3/uL (1.0-4.8) Monocytes # (Auto) 1.0 x10^3/uL (0.0-1.1) Eosinophils # (Auto) 0.2 x10^3/uL (0.0-0.7) Basophils # (Auto) 0.1 x10^3/uL (0.0-0.2) Sodium Level 139 mmol/L (136-145) Potassium Level 3.5 mmol/L (3.5-5.1) Chloride Level 103 mmol/L (98-107) Carbon Dioxide Level 22 mmol/L (21-32) Anion Gap 14 (6-14) Blood Urea Nitrogen 34 mg/dL (7-20) Creatinine 5.9 mg/dL (0.6-1.0) Estimated GFR (Cockcroft-Gault) 7.2 Glucose Level 96 mg/dL (70-99) Lactic Acid Level 1.2 mmol/L (0.4-2.0) Calcium Level 7.0 mg/dL (8.5-10.1) Magnesium Level 2.2 mg/dL (1.8-2.4) Total Bilirubin 0.4 mg/dL (0.2-1.0) Direct Bilirubin 0.2 mg/dL (0.0-0.2) Aspartate Amino Transf (AST/SGOT) 23 U/L (15-37) Alanine Aminotransferase (ALT/SGPT) 12 U/L (14-59) Alkaline Phosphatase 75 U/L (46-116) Lactate Dehydrogenase 214 U/L (81-234) Troponin I Quantitative 0.268 ng/mL (0.000-0.055) Total Protein 5.1 g/dL (6.4-8.2) Albumin 1.4 g/dL (3.4-5.0) Laboratory Tests Test 02/02/20 13:00 02/02/20 13:20 02/02/20 13:35 02/02/20 18:30 White Blood Count 18.2 x10^3/uL (4.0-11.0) Red Blood Count 4.10 x10^6/uL (3.50-5.40) Hemoglobin 13.4 g/dL (12.0-15.5) Hematocrit 40.3 % (36.0-47.0) Mean Corpuscular Volume 98 fL (79-100) Mean Corpuscular Hemoglobin 33 pg (25-35) Mean Corpuscular Hemoglobin Concent 33 g/dL (31-37) Red Cell Distribution Width 17.5 % (11.5-14.5) Platelet Count 310 x10^3/uL (140-400) Neutrophils (%) (Auto) 77 % (31-73) Lymphocytes (%) (Auto) 16 % (24-48) Monocytes (%) (Auto) 6 % (0-9) Eosinophils (%) (Auto) 0 % (0-3) Basophils (%) (Auto) 1 % (0-3) Neutrophils # (Auto) 14.1 x10^3/uL (1.8-7.7) Lymphocytes # (Auto) 2.9 x10^3/uL (1.0-4.8) Monocytes # (Auto) 1.1 x10^3/uL (0.0-1.1) Eosinophils # (Auto) 0.0 x10^3/uL (0.0-0.7) Basophils # (Auto) 0.1 x10^3/uL (0.0-0.2) Segmented Neutrophils % 78 % (35-66) Band Neutrophils % 2 % (0-9) Lymphocytes % 17 % (24-48) Monocytes % 3 % (0-10) Platelet Estimate Adequate (ADEQUATE) Platelet Clumps, EDTA Present Anisocytosis Slight Sodium Level 136 mmol/L (136-145) Potassium Level 2.7 mmol/L (3.5-5.1) Chloride Level 93 mmol/L (98-107) Carbon Dioxide Level 26 mmol/L (21-32) Anion Gap 17 (6-14) Blood Urea Nitrogen 33 mg/dL (7-20) Creatinine 6.5 mg/dL (0.6-1.0) Estimated GFR (Cockcroft-Gault) 6.4 Glucose Level 201 mg/dL (70-99) Lactic Acid Level 5.1 mmol/L (0.4-2.0) 2.0 mmol/L (0.4-2.0) Calcium Level 8.2 mg/dL (8.5-10.1) Magnesium Level 1.6 mg/dL (1.8-2.4) Total Bilirubin 0.3 mg/dL (0.2-1.0) Direct Bilirubin 0.1 mg/dL (0.0-0.2) Aspartate Amino Transf (AST/SGOT) 22 U/L (15-37) Alanine Aminotransferase (ALT/SGPT) 13 U/L (14-59) Alkaline Phosphatase 90 U/L (46-116) Troponin I Quantitative 0.160 ng/mL (0.000-0.055) TC-Vvd-R-Type Natriuretic Peptide 58892 pg/mL (0-124) Total Protein 7.3 g/dL (6.4-8.2) Albumin 1.7 g/dL (3.4-5.0) Lipase 46 U/L (73-393) O2 Saturation 99 % (92-99) Arterial Blood pH 7.51 (7.35-7.45) Arterial Blood pCO2 at Patient Temp 28 mmHg (35-46) Arterial Blood pO2 at Patient Temp 153 mmHg (65-108) Arterial Blood HCO3 21 mmol/L (21-28) Arterial Blood Base Excess -1 mmol/L (-3-3) Oxyhemoglobin 98.0 % Methemoglobin 0.3 % (0.0-1.9) Carbon Monoxide, Quantitative 0.3 % (0.0-1.9) FiO2 36 Test 02/02/20 22:10 02/03/20 05:45 02/03/20 08:30 Glucose (Fingerstick) 135 mg/dL (70-99) 83 mg/dL (70-99) White Blood Count 14.3 x10^3/uL (4.0-11.0) Red Blood Count 2.96 x10^6/uL (3.50-5.40) Hemoglobin 9.5 g/dL (12.0-15.5) Hematocrit 29.2 % (36.0-47.0) Mean Corpuscular Volume 99 fL (79-100) Mean Corpuscular Hemoglobin 32 pg (25-35) Mean Corpuscular Hemoglobin Concent 33 g/dL (31-37) Red Cell Distribution Width 17.5 % (11.5-14.5) Platelet Count 205 x10^3/uL (140-400) Neutrophils (%) (Auto) 68 % (31-73) Lymphocytes (%) (Auto) 22 % (24-48) Monocytes (%) (Auto) 7 % (0-9) Eosinophils (%) (Auto) 1 % (0-3) Basophils (%) (Auto) 1 % (0-3) Neutrophils # (Auto) 9.7 x10^3/uL (1.8-7.7) Lymphocytes # (Auto) 3.2 x10^3/uL (1.0-4.8) Monocytes # (Auto) 1.0 x10^3/uL (0.0-1.1) Eosinophils # (Auto) 0.2 x10^3/uL (0.0-0.7) Basophils # (Auto) 0.1 x10^3/uL (0.0-0.2) Sodium Level 139 mmol/L (136-145) Potassium Level 3.5 mmol/L (3.5-5.1) Chloride Level 103 mmol/L (98-107) Carbon Dioxide Level 22 mmol/L (21-32) Anion Gap 14 (6-14) Blood Urea Nitrogen 34 mg/dL (7-20) Creatinine 5.9 mg/dL (0.6-1.0) Estimated GFR (Cockcroft-Gault) 7.2 Glucose Level 96 mg/dL (70-99) Lactic Acid Level 1.2 mmol/L (0.4-2.0) Calcium Level 7.0 mg/dL (8.5-10.1) Magnesium Level 2.2 mg/dL (1.8-2.4) Total Bilirubin 0.4 mg/dL (0.2-1.0) Direct Bilirubin 0.2 mg/dL (0.0-0.2) Aspartate Amino Transf (AST/SGOT) 23 U/L (15-37) Alanine Aminotransferase (ALT/SGPT) 12 U/L (14-59) Alkaline Phosphatase 75 U/L (46-116) Lactate Dehydrogenase 214 U/L (81-234) Troponin I Quantitative 0.268 ng/mL (0.000-0.055) Total Protein 5.1 g/dL (6.4-8.2) Albumin 1.4 g/dL (3.4-5.0) Images Images Chest x-ray with no infiltrates CT head scan with no acute changes. Assessment/Plan Assessment/Plan 1. Sepsis. Patient been treated with IV antibiotics and pressors. Blood pressure has improved. 2. End-stage renal disease on peritoneal dialysis. Renal is following the patient. 3. Minimally elevated troponin at 0.6268. No acute ischemic EKG changes. Most consistent with demand mediated ischemia. Will trend troponin and continue on telemetry. Echocardiogram. 4. Diabetes mellitus. As per the primary service. 5. History of a CVA. Thank you for allowing us to participate in the care of your patient. CALEB CROCKETT MD Feb 03, 2020 11:05
--- NOTE | 2020-02-03 11:30 | PDOC ---
PROGRESS NOTES Chief Complaint Chief Complaint Septic Shock, unclear source: broad spectrum abx, blood cultures. check for covid 19. IVF. CVL placement; continue pressor support Sacral Decub Ulcer stage 1 POA: wound care consult lactic acidosis: lactate improved Hypokalemia: replete as needed HypoMagnesemia: replete as needed ESRD on PD: nephro consult for dialysis Leukocytosis: trend CBC Nausea and Vomiting: supportive care Elevated Trop: likely demand ischemia; apprec cards Elevated BNP: check echo Hx of CVA DVT PPX GI PPX diet: CLD FULL CODE Vitals Vitals Vital Signs Date Time Temp Pulse Resp B/P (MAP) Pulse Ox O2 Delivery O2 Flow Rate FiO2 02/03/20 11:00 60 15 109/55 (73) 100 Room Air 02/03/20 08:00 2.0 02/03/20 08:00 98.0 98.0 Physical Exam General: mild distress Heart: Regular rate Abdomen: Normal bowel sounds Labs LABS Laboratory Tests Test 02/02/20 13:00 02/02/20 13:20 02/02/20 13:35 02/02/20 18:30 White Blood Count 18.2 x10^3/uL (4.0-11.0) Red Blood Count 4.10 x10^6/uL (3.50-5.40) Hemoglobin 13.4 g/dL (12.0-15.5) Hematocrit 40.3 % (36.0-47.0) Mean Corpuscular Volume 98 fL (79-100) Mean Corpuscular Hemoglobin 33 pg (25-35) Mean Corpuscular Hemoglobin Concent 33 g/dL (31-37) Red Cell Distribution Width 17.5 % (11.5-14.5) Platelet Count 310 x10^3/uL (140-400) Neutrophils (%) (Auto) 77 % (31-73) Lymphocytes (%) (Auto) 16 % (24-48) Monocytes (%) (Auto) 6 % (0-9) Eosinophils (%) (Auto) 0 % (0-3) Basophils (%) (Auto) 1 % (0-3) Neutrophils # (Auto) 14.1 x10^3/uL (1.8-7.7) Lymphocytes # (Auto) 2.9 x10^3/uL (1.0-4.8) Monocytes # (Auto) 1.1 x10^3/uL (0.0-1.1) Eosinophils # (Auto) 0.0 x10^3/uL (0.0-0.7) Basophils # (Auto) 0.1 x10^3/uL (0.0-0.2) Segmented Neutrophils % 78 % (35-66) Band Neutrophils % 2 % (0-9) Lymphocytes % 17 % (24-48) Monocytes % 3 % (0-10) Platelet Estimate Adequate (ADEQUATE) Platelet Clumps, EDTA Present Anisocytosis Slight Sodium Level 136 mmol/L (136-145) Potassium Level 2.7 mmol/L (3.5-5.1) Chloride Level 93 mmol/L (98-107) Carbon Dioxide Level 26 mmol/L (21-32) Anion Gap 17 (6-14) Blood Urea Nitrogen 33 mg/dL (7-20) Creatinine 6.5 mg/dL (0.6-1.0) Estimated GFR (Cockcroft-Gault) 6.4 Glucose Level 201 mg/dL (70-99) Lactic Acid Level 5.1 mmol/L (0.4-2.0) 2.0 mmol/L (0.4-2.0) Calcium Level 8.2 mg/dL (8.5-10.1) Magnesium Level 1.6 mg/dL (1.8-2.4) Total Bilirubin 0.3 mg/dL (0.2-1.0) Direct Bilirubin 0.1 mg/dL (0.0-0.2) Aspartate Amino Transf (AST/SGOT) 22 U/L (15-37) Alanine Aminotransferase (ALT/SGPT) 13 U/L (14-59) Alkaline Phosphatase 90 U/L (46-116) Troponin I Quantitative 0.160 ng/mL (0.000-0.055) LQ-Ufo-B-Type Natriuretic Peptide 55869 pg/mL (0-124) Total Protein 7.3 g/dL (6.4-8.2) Albumin 1.7 g/dL (3.4-5.0) Lipase 46 U/L (73-393) O2 Saturation 99 % (92-99) Arterial Blood pH 7.51 (7.35-7.45) Arterial Blood pCO2 at Patient Temp 28 mmHg (35-46) Arterial Blood pO2 at Patient Temp 153 mmHg (65-108) Arterial Blood HCO3 21 mmol/L (21-28) Arterial Blood Base Excess -1 mmol/L (-3-3) Oxyhemoglobin 98.0 % Methemoglobin 0.3 % (0.0-1.9) Carbon Monoxide, Quantitative 0.3 % (0.0-1.9) FiO2 36 Test 02/02/20 22:10 02/03/20 05:45 02/03/20 08:30 Glucose (Fingerstick) 135 mg/dL (70-99) 83 mg/dL (70-99) White Blood Count 14.3 x10^3/uL (4.0-11.0) Red Blood Count 2.96 x10^6/uL (3.50-5.40) Hemoglobin 9.5 g/dL (12.0-15.5) Hematocrit 29.2 % (36.0-47.0) Mean Corpuscular Volume 99 fL (79-100) Mean Corpuscular Hemoglobin 32 pg (25-35) Mean Corpuscular Hemoglobin Concent 33 g/dL (31-37) Red Cell Distribution Width 17.5 % (11.5-14.5) Platelet Count 205 x10^3/uL (140-400) Neutrophils (%) (Auto) 68 % (31-73) Lymphocytes (%) (Auto) 22 % (24-48) Monocytes (%) (Auto) 7 % (0-9) Eosinophils (%) (Auto) 1 % (0-3) Basophils (%) (Auto) 1 % (0-3) Neutrophils # (Auto) 9.7 x10^3/uL (1.8-7.7) Lymphocytes # (Auto) 3.2 x10^3/uL (1.0-4.8) Monocytes # (Auto) 1.0 x10^3/uL (0.0-1.1) Eosinophils # (Auto) 0.2 x10^3/uL (0.0-0.7) Basophils # (Auto) 0.1 x10^3/uL (0.0-0.2) Sodium Level 139 mmol/L (136-145) Potassium Level 3.5 mmol/L (3.5-5.1) Chloride Level 103 mmol/L (98-107) Carbon Dioxide Level 22 mmol/L (21-32) Anion Gap 14 (6-14) Blood Urea Nitrogen 34 mg/dL (7-20) Creatinine 5.9 mg/dL (0.6-1.0) Estimated GFR (Cockcroft-Gault) 7.2 Glucose Level 96 mg/dL (70-99) Lactic Acid Level 1.2 mmol/L (0.4-2.0) Calcium Level 7.0 mg/dL (8.5-10.1) Magnesium Level 2.2 mg/dL (1.8-2.4) Total Bilirubin 0.4 mg/dL (0.2-1.0) Direct Bilirubin 0.2 mg/dL (0.0-0.2) Aspartate Amino Transf (AST/SGOT) 23 U/L (15-37) Alanine Aminotransferase (ALT/SGPT) 12 U/L (14-59) Alkaline Phosphatase 75 U/L (46-116) Lactate Dehydrogenase 214 U/L (81-234) Troponin I Quantitative 0.268 ng/mL (0.000-0.055) Total Protein 5.1 g/dL (6.4-8.2) Albumin 1.4 g/dL (3.4-5.0) Assessment and Plan Assessmemt and Plan Problems Medical Problems: (1) Septic shock Status: Acute Comment Review of Relevant I have reviewed the following items sujatha (where applicable) has been applied. Labs Laboratory Tests Test 02/02/20 13:00 02/02/20 13:20 02/02/20 13:35 02/02/20 18:30 White Blood Count 18.2 x10^3/uL (4.0-11.0) Red Blood Count 4.10 x10^6/uL (3.50-5.40) Hemoglobin 13.4 g/dL (12.0-15.5) Hematocrit 40.3 % (36.0-47.0) Mean Corpuscular Volume 98 fL (79-100) Mean Corpuscular Hemoglobin 33 pg (25-35) Mean Corpuscular Hemoglobin Concent 33 g/dL (31-37) Red Cell Distribution Width 17.5 % (11.5-14.5) Platelet Count 310 x10^3/uL (140-400) Neutrophils (%) (Auto) 77 % (31-73) Lymphocytes (%) (Auto) 16 % (24-48) Monocytes (%) (Auto) 6 % (0-9) Eosinophils (%) (Auto) 0 % (0-3) Basophils (%) (Auto) 1 % (0-3) Neutrophils # (Auto) 14.1 x10^3/uL (1.8-7.7) Lymphocytes # (Auto) 2.9 x10^3/uL (1.0-4.8) Monocytes # (Auto) 1.1 x10^3/uL (0.0-1.1) Eosinophils # (Auto) 0.0 x10^3/uL (0.0-0.7) Basophils # (Auto) 0.1 x10^3/uL (0.0-0.2) Segmented Neutrophils % 78 % (35-66) Band Neutrophils % 2 % (0-9) Lymphocytes % 17 % (24-48) Monocytes % 3 % (0-10) Platelet Estimate Adequate (ADEQUATE) Platelet Clumps, EDTA Present Anisocytosis Slight Sodium Level 136 mmol/L (136-145) Potassium Level 2.7 mmol/L (3.5-5.1) Chloride Level 93 mmol/L (98-107) Carbon Dioxide Level 26 mmol/L (21-32) Anion Gap 17 (6-14) Blood Urea Nitrogen 33 mg/dL (7-20) Creatinine 6.5 mg/dL (0.6-1.0) Estimated GFR (Cockcroft-Gault) 6.4 Glucose Level 201 mg/dL (70-99) Lactic Acid Level 5.1 mmol/L (0.4-2.0) 2.0 mmol/L (0.4-2.0) Calcium Level 8.2 mg/dL (8.5-10.1) Magnesium Level 1.6 mg/dL (1.8-2.4) Total Bilirubin 0.3 mg/dL (0.2-1.0) Direct Bilirubin 0.1 mg/dL (0.0-0.2) Aspartate Amino Transf (AST/SGOT) 22 U/L (15-37) Alanine Aminotransferase (ALT/SGPT) 13 U/L (14-59) Alkaline Phosphatase 90 U/L (46-116) Troponin I Quantitative 0.160 ng/mL (0.000-0.055) EM-Hkw-Y-Type Natriuretic Peptide 17363 pg/mL (0-124) Total Protein 7.3 g/dL (6.4-8.2) Albumin 1.7 g/dL (3.4-5.0) Lipase 46 U/L (73-393) O2 Saturation 99 % (92-99) Arterial Blood pH 7.51 (7.35-7.45) Arterial Blood pCO2 at Patient Temp 28 mmHg (35-46) Arterial Blood pO2 at Patient Temp 153 mmHg (65-108) Arterial Blood HCO3 21 mmol/L (21-28) Arterial Blood Base Excess -1 mmol/L (-3-3) Oxyhemoglobin 98.0 % Methemoglobin 0.3 % (0.0-1.9) Carbon Monoxide, Quantitative 0.3 % (0.0-1.9) FiO2 36 Test 02/02/20 22:10 02/03/20 05:45 02/03/20 08:30 Glucose (Fingerstick) 135 mg/dL (70-99) 83 mg/dL (70-99) White Blood Count 14.3 x10^3/uL (4.0-11.0) Red Blood Count 2.96 x10^6/uL (3.50-5.40) Hemoglobin 9.5 g/dL (12.0-15.5) Hematocrit 29.2 % (36.0-47.0) Mean Corpuscular Volume 99 fL (79-100) Mean Corpuscular Hemoglobin 32 pg (25-35) Mean Corpuscular Hemoglobin Concent 33 g/dL (31-37) Red Cell Distribution Width 17.5 % (11.5-14.5) Platelet Count 205 x10^3/uL (140-400) Neutrophils (%) (Auto) 68 % (31-73) Lymphocytes (%) (Auto) 22 % (24-48) Monocytes (%) (Auto) 7 % (0-9) Eosinophils (%) (Auto) 1 % (0-3) Basophils (%) (Auto) 1 % (0-3) Neutrophils # (Auto) 9.7 x10^3/uL (1.8-7.7) Lymphocytes # (Auto) 3.2 x10^3/uL (1.0-4.8) Monocytes # (Auto) 1.0 x10^3/uL (0.0-1.1) Eosinophils # (Auto) 0.2 x10^3/uL (0.0-0.7) Basophils # (Auto) 0.1 x10^3/uL (0.0-0.2) Sodium Level 139 mmol/L (136-145) Potassium Level 3.5 mmol/L (3.5-5.1) Chloride Level 103 mmol/L (98-107) Carbon Dioxide Level 22 mmol/L (21-32) Anion Gap 14 (6-14) Blood Urea Nitrogen 34 mg/dL (7-20) Creatinine 5.9 mg/dL (0.6-1.0) Estimated GFR (Cockcroft-Gault) 7.2 Glucose Level 96 mg/dL (70-99) Lactic Acid Level 1.2 mmol/L (0.4-2.0) Calcium Level 7.0 mg/dL (8.5-10.1) Magnesium Level 2.2 mg/dL (1.8-2.4) Total Bilirubin 0.4 mg/dL (0.2-1.0) Direct Bilirubin 0.2 mg/dL (0.0-0.2) Aspartate Amino Transf (AST/SGOT) 23 U/L (15-37) Alanine Aminotransferase (ALT/SGPT) 12 U/L (14-59) Alkaline Phosphatase 75 U/L (46-116) Lactate Dehydrogenase 214 U/L (81-234) Troponin I Quantitative 0.268 ng/mL (0.000-0.055) Total Protein 5.1 g/dL (6.4-8.2) Albumin 1.4 g/dL (3.4-5.0) Laboratory Tests Test 02/02/20 13:00 02/02/20 13:20 02/02/20 13:35 02/02/20 18:30 White Blood Count 18.2 x10^3/uL (4.0-11.0) Red Blood Count 4.10 x10^6/uL (3.50-5.40) Hemoglobin 13.4 g/dL (12.0-15.5) Hematocrit 40.3 % (36.0-47.0) Mean Corpuscular Volume 98 fL (79-100) Mean Corpuscular Hemoglobin 33 pg (25-35) Mean Corpuscular Hemoglobin Concent 33 g/dL (31-37) Red Cell Distribution Width 17.5 % (11.5-14.5) Platelet Count 310 x10^3/uL (140-400) Neutrophils (%) (Auto) 77 % (31-73) Lymphocytes (%) (Auto) 16 % (24-48) Monocytes (%) (Auto) 6 % (0-9) Eosinophils (%) (Auto) 0 % (0-3) Basophils (%) (Auto) 1 % (0-3) Neutrophils # (Auto) 14.1 x10^3/uL (1.8-7.7) Lymphocytes # (Auto) 2.9 x10^3/uL (1.0-4.8) Monocytes # (Auto) 1.1 x10^3/uL (0.0-1.1) Eosinophils # (Auto) 0.0 x10^3/uL (0.0-0.7) Basophils # (Auto) 0.1 x10^3/uL (0.0-0.2) Segmented Neutrophils % 78 % (35-66) Band Neutrophils % 2 % (0-9) Lymphocytes % 17 % (24-48) Monocytes % 3 % (0-10) Platelet Estimate Adequate (ADEQUATE) Platelet Clumps, EDTA Present Anisocytosis Slight Sodium Level 136 mmol/L (136-145) Potassium Level 2.7 mmol/L (3.5-5.1) Chloride Level 93 mmol/L (98-107) Carbon Dioxide Level 26 mmol/L (21-32) Anion Gap 17 (6-14) Blood Urea Nitrogen 33 mg/dL (7-20) Creatinine 6.5 mg/dL (0.6-1.0) Estimated GFR (Cockcroft-Gault) 6.4 Glucose Level 201 mg/dL (70-99) Lactic Acid Level 5.1 mmol/L (0.4-2.0) 2.0 mmol/L (0.4-2.0) Calcium Level 8.2 mg/dL (8.5-10.1) Magnesium Level 1.6 mg/dL (1.8-2.4) Total Bilirubin 0.3 mg/dL (0.2-1.0) Direct Bilirubin 0.1 mg/dL (0.0-0.2) Aspartate Amino Transf (AST/SGOT) 22 U/L (15-37) Alanine Aminotransferase (ALT/SGPT) 13 U/L (14-59) Alkaline Phosphatase 90 U/L (46-116) Troponin I Quantitative 0.160 ng/mL (0.000-0.055) CD-Jua-G-Type Natriuretic Peptide 28962 pg/mL (0-124) Total Protein 7.3 g/dL (6.4-8.2) Albumin 1.7 g/dL (3.4-5.0) Lipase 46 U/L (73-393) O2 Saturation 99 % (92-99) Arterial Blood pH 7.51 (7.35-7.45) Arterial Blood pCO2 at Patient Temp 28 mmHg (35-46) Arterial Blood pO2 at Patient Temp 153 mmHg (65-108) Arterial Blood HCO3 21 mmol/L (21-28) Arterial Blood Base Excess -1 mmol/L (-3-3) Oxyhemoglobin 98.0 % Methemoglobin 0.3 % (0.0-1.9) Carbon Monoxide, Quantitative 0.3 % (0.0-1.9) FiO2 36 Test 02/02/20 22:10 02/03/20 05:45 02/03/20 08:30 Glucose (Fingerstick) 135 mg/dL (70-99) 83 mg/dL (70-99) White Blood Count 14.3 x10^3/uL (4.0-11.0) Red Blood Count 2.96 x10^6/uL (3.50-5.40) Hemoglobin 9.5 g/dL (12.0-15.5) Hematocrit 29.2 % (36.0-47.0) Mean Corpuscular Volume 99 fL (79-100) Mean Corpuscular Hemoglobin 32 pg (25-35) Mean Corpuscular Hemoglobin Concent 33 g/dL (31-37) Red Cell Distribution Width 17.5 % (11.5-14.5) Platelet Count 205 x10^3/uL (140-400) Neutrophils (%) (Auto) 68 % (31-73) Lymphocytes (%) (Auto) 22 % (24-48) Monocytes (%) (Auto) 7 % (0-9) Eosinophils (%) (Auto) 1 % (0-3) Basophils (%) (Auto) 1 % (0-3) Neutrophils # (Auto) 9.7 x10^3/uL (1.8-7.7) Lymphocytes # (Auto) 3.2 x10^3/uL (1.0-4.8) Monocytes # (Auto) 1.0 x10^3/uL (0.0-1.1) Eosinophils # (Auto) 0.2 x10^3/uL (0.0-0.7) Basophils # (Auto) 0.1 x10^3/uL (0.0-0.2) Sodium Level 139 mmol/L (136-145) Potassium Level 3.5 mmol/L (3.5-5.1) Chloride Level 103 mmol/L (98-107) Carbon Dioxide Level 22 mmol/L (21-32) Anion Gap 14 (6-14) Blood Urea Nitrogen 34 mg/dL (7-20) Creatinine 5.9 mg/dL (0.6-1.0) Estimated GFR (Cockcroft-Gault) 7.2 Glucose Level 96 mg/dL (70-99) Lactic Acid Level 1.2 mmol/L (0.4-2.0) Calcium Level 7.0 mg/dL (8.5-10.1) Magnesium Level 2.2 mg/dL (1.8-2.4) Total Bilirubin 0.4 mg/dL (0.2-1.0) Direct Bilirubin 0.2 mg/dL (0.0-0.2) Aspartate Amino Transf (AST/SGOT) 23 U/L (15-37) Alanine Aminotransferase (ALT/SGPT) 12 U/L (14-59) Alkaline Phosphatase 75 U/L (46-116) Lactate Dehydrogenase 214 U/L (81-234) Troponin I Quantitative 0.268 ng/mL (0.000-0.055) Total Protein 5.1 g/dL (6.4-8.2) Albumin 1.4 g/dL (3.4-5.0) Medications Current Medications Sodium Chloride 500 ml @ 500 mls/hr 1X ONCE IV Last administered on 02/02/20at 13:15; Start 02/02/20 at 13:15; Stop 02/02/20 at 14:14; Status DC Piperacillin Sod/ Tazobactam Sod (Zosyn Per Pharmacy) 1 each PRN DAILY PRN MC SEE COMMENTS; Start 02/02/20 at 13:30; Status UNV Vancomycin HCl (Vanco Per Pharmacy) 1 each PRN DAILY PRN MC SEE COMMENTS; Start 02/02/20 at 13:30; Status UNV Piperacillin Sod/ Tazobactam Sod 2.25 gm/Sodium Chloride 50 ml @ 100 mls/hr 1X ONCE IV Last administered on 02/02/20at 13:50; Start 02/02/20 at 14:00; Stop 02/02/20 at 14:29; Status DC Vancomycin HCl 1.5 gm/Sodium Chloride 500 ml @ 250 mls/hr 1X ONCE IV Last administered on 02/02/20at 13:50; Start 02/02/20 at 14:30; Stop 02/02/20 at 16:29; Status DC Potassium Chloride/Water 100 ml @ 50 mls/hr Q1H IV Last administered on 02/02/20at 19:24; Start 02/02/20 at 15:00; Stop 02/02/20 at 16:59; Status DC Norepinephrine Bitartrate 8 mg/ Dextrose 258 ml @ 12.926 mls/ hr 1X ONCE IV ; Start 02/02/20 at 14:45; Stop 02/03/20 at 10:42; Status DC Sodium Chloride 500 ml @ 500 mls/hr 1X ONCE IV Last administered on 02/02/20at 13:50; Start 02/02/20 at 14:45; Stop 02/02/20 at 15:44; Status DC Sodium Chloride 500 ml @ 500 mls/hr 1X ONCE IV Last administered on 02/02/20at 16:29; Start 02/02/20 at 14:45; Stop 02/02/20 at 15:44; Status DC Magnesium Sulfate 50 ml @ 25 mls/hr 1X ONCE IV Last administered on 02/02/20at 17:07; Start 02/02/20 at 15:30; Stop 02/02/20 at 17:29; Status DC Acetaminophen (Tylenol) 650 mg PRN Q6HRS PRN PO Headaches, Temp > 101.5' Last administered on 02/03/20at 05:24; Start 02/02/20 at 15:45 Famotidine (Pepcid Vial) 20 mg QHS IVP Last administered on 02/02/20at 21:18; Start 02/02/20 at 21:00 Info (Icu Electrolyte Protocol) 1 ea DAILY MC ; Start 02/03/20 at 09:00 Heparin Sodium (Porcine) (Heparin Sodium) 5,000 unit Q12HR SQ Last administered on 02/03/20at 08:23; Start 02/02/20 at 21:00 Sodium Chloride (Normal Saline Flush) 3 ml QSHIFT PRN IV AFTER MEDS AND BLOOD DRAWS; Start 02/02/20 at 15:45 Senna/Docusate Sodium (Senna Plus) 1 tab BID PO Last administered on 02/02/20at 21:07; Start 02/02/20 at 21:00 Potassium Chloride/Sodium Chloride 1,000 ml @ 100 mls/hr 1X ONCE IV Last administered on 02/02/20at 19:23; Start 02/02/20 at 18:00; Stop 02/03/20 at 03:59; Status DC Piperacillin Sod/ Tazobactam Sod (Zosyn Per Pharmacy) 1 each PRN DAILY PRN MC SEE COMMENTS; Start 02/02/20 at 16:00 Vancomycin HCl (Vanco Per Pharmacy) 1 each PRN DAILY PRN MC SEE COMMENTS Last administered on 02/02/20at 18:03; Start 02/02/20 at 16:00 Insulin Human Lispro (HumaLOG) 0-7 UNITS TIDWMEALS SQ ; Start 02/02/20 at 17:00 Dextrose (Dextrose 50%-Water Syringe) 12.5 gm PRN Q15MIN PRN IV SEE COMMENTS; Start 02/02/20 at 16:00 Aspirin (Ecotrin) 81 mg DAILY PO Last administered on 02/03/20at 08:23; Start 02/03/20 at 09:00 Clopidogrel Bisulfate (Plavix) 75 mg DAILY PO Last administered on 02/03/20at 08:23; Start 02/03/20 at 09:00 Atorvastatin Calcium (Lipitor) 80 mg QHS PO Last administered on 02/02/20at 21:07; Start 02/02/20 at 21:00 Piperacillin Sod/ Tazobactam Sod 2.25 gm/Sodium Chloride 50 ml @ 100 mls/hr Q8HRS IV Last administered on 02/03/20at 05:23; Start 02/02/20 at 22:00 Vancomycin HCl (Vancomycin Random Level) 1 each 1X ONCE MC ; Start 02/04/20 at 13:00; Stop 02/04/20 at 13:01 Active Scripts Active Reported Bactrim Ds Tablet (Sulfamethoxazole/Trimethoprim) 1 Each Tablet 1 Tab PO BID 10 Days [place] 5-325 Tablet (Acetaminophen/Hydrocodone Bitart) 1 Each Tablet 1 Tab PO Q4- 6HRS Amlodipine Besylate 5 Mg Tablet 5 Mg PO DAILY Aspir-Low (Aspirin) 81 Mg Tablet.dr 81 Mg PO DAILY Renvela (Sevelamer Carbonate) 800 Mg Tablet 800 Mg PO TIDWMEALS Atorvastatin Calcium 80 Mg Tablet 80 Mg PO QHS Gabapentin (Gabapentin) 100 Mg Capsule 100 Mg PO TID Losartan Potassium (Losartan Potassium) 25 Mg Tablet 25 Mg PO DAILY Metoprolol Succinate ( Xl ) (Metoprolol Succinate) 25 Mg Tab.er.24h 25 Mg PO BID Clopidogrel (Clopidogrel Bisulfate) 75 Mg Tablet 75 Mg PO DAILY Vitals/I & O Vital Sign - Last 24 Hours 02/02/20 02/02/20 02/02/20 02/02/20 12:42 12:52 13:04 13:12 Temp 98.3 98.3 Pulse 88 93 90 69 Resp 14 B/P (MAP) 73/36 (48) Pulse Ox 95 100 92 O2 Delivery Nasal Cannula O2 Flow Rate 2.0 02/02/20 02/02/20 02/02/20 02/02/20 13:16 13:18 13:26 13:33 Pulse 83 81 76 77 02/02/20 02/02/20 02/02/20 02/02/20 13:35 13:38 13:48 13:53 Pulse 75 81 76 O2 Delivery Nasal Cannula O2 Flow Rate 4.0 02/02/20 02/02/20 02/02/20 02/02/20 13:58 14:03 14:08 14:24 Pulse 79 76 77 75 02/02/20 02/02/20 02/02/20 02/02/20 14:29 14:34 14:39 14:44 Pulse 76 77 78 77 02/02/20 02/02/20 02/02/20 02/02/20 14:49 14:54 14:59 15:04 Pulse 76 74 77 78 Pulse Ox 94 02/02/20 02/02/20 02/02/20 02/02/20 15:09 15:14 15:22 15:59 Pulse 78 77 81 96 Pulse Ox 90 02/02/20 02/02/20 02/02/20 02/02/20 16:04 16:09 16:14 16:19 Pulse 84 87 86 90 02/02/20 02/02/20 02/02/20 02/02/20 16:24 16:29 16:34 16:39 Pulse 83 83 81 81 02/02/20 02/02/20 02/02/20 02/02/20 16:44 16:49 16:54 16:59 Pulse 78 80 81 77 02/02/20 02/02/20 02/02/20 02/02/20 17:04 17:09 17:14 17:19 Pulse 79 78 77 83 Pulse Ox 100 02/02/20 02/02/20 02/02/2020 17:24 17:29 17:34 18:30 Temp 98.5 98.5 Pulse 79 80 79 82 Resp 22 B/P (MAP) 57/47 (50) Pulse Ox 100 O2 Delivery Nasal Cannula O2 Flow Rate 2.0 02/02/20 02/02/20 02/02/20 02/02/20 18:45 20:00 20:00 21:00 Temp 97.7 97.7 Pulse 83 84 80 Resp 22 26 B/P (MAP) 134/58 (83) 129/65 (86) 129/67 (87) Pulse Ox 100 100 100 O2 Delivery Nasal Cannula Nasal Cannula Nasal Cannula Nasal Cannula O2 Flow Rate 2.0 2.0 2.0 2.0 02/02/20 02/02/20 02/02/20 02/03/20 22:00 23:00 23:59 00:01 Temp 97.9 97.9 Pulse 80 80 77 Resp 24 26 B/P (MAP) 119/66 (83) 136/83 (100) 132/69 (90) Pulse Ox 100 100 100 O2 Delivery Nasal Cannula Nasal Cannula Nasal Cannula Nasal Cannula O2 Flow Rate 2.0 2.0 2.0 2.0 02/03/20 02/03/20 02/03/20 02/03/20 01:00 02:00 03:00 04:00 Temp 97.7 97.7 Pulse 71 71 68 68 Resp 23 29 26 25 B/P (MAP) 135/69 (91) 119/64 (82) 115/62 (79) 118/64 (82) Pulse Ox 99 100 100 100 O2 Delivery Nasal Cannula Nasal Cannula Nasal Cannula Nasal Cannula O2 Flow Rate 2.0 2.0 2.0 2.0 02/03/20 02/03/20 02/03/20 02/03/20 04:00 05:00 06:00 07:00 Pulse 66 65 64 Resp 24 22 25 B/P (MAP) 102/51 (68) 105/55 (72) 95/48 (64) Pulse Ox 100 100 99 O2 Delivery Nasal Cannula Room Air Room Air Room Air O2 Flow Rate 2.0 02/03/20 02/03/20 02/03/20 02/03/20 08:00 08:00 09:00 10:00 Temp 98.0 98.0 Pulse 61 60 60 Resp 19 18 21 B/P (MAP) 74/48 (57) 99/54 (69) 101/50 (67) Pulse Ox 100 98 100 O2 Delivery Room Air Nasal Cannula Room Air Room Air O2 Flow Rate 2.0 02/03/20 11:00 Pulse 60 Resp 15 B/P (MAP) 109/55 (73) Pulse Ox 100 O2 Delivery Room Air Intake and Output 02/02/20 02/02/20 02/03/20 15:00 23:00 07:00 Intake Total 550 ml 500 ml 100 ml Output Total 0 ml 0 ml Balance 550 ml 500 ml 100 ml Justicifation of Admission Dx: Justifications for Admission: Justification of Admission Dx: Yes Sepsis: Infection GELY HOLDER MD Feb 03, 2020 11:30
[2020-02-03] MEDS: VANCOMYCIN PER PHARMACY MC PRN ×2 (11:49→12:13)
--- NOTE | 2020-02-03 12:32 | NUR ---
Patient was very clear to "leave me alone, I am sleeping", when I asked her to take her medications to help her get better she stated "I don't want to"
[2020-02-03] MEDS ORDERED: DIALYSIS PATIENT. MC PRN (13:15)
--- NOTE | 2020-02-03 18:10 | CONS ---
DATE OF CONSULTATION: REQUESTING PHYSICIAN: Hospitalist. REASON FOR CONSULTATION: Renal failure, peritoneal dialysis dependent. HISTORY OF PRESENT ILLNESS: This is a 64-year-old female admitted with weakness and hypotension. She has been managed for probable sepsis syndrome of unclear etiology. She has history of diabetes mellitus, chronic kidney disease, ____ end-stage renal disease status. She has been peritoneal dialysis dependent for 6 years. She also has severe peripheral vascular disease, status post bilateral [id number] amputations. The patient's current acute presentation also includes 2-3 days of nausea, vomiting and reduced oral intake. PAST MEDICAL HISTORY: Diabetes mellitus, hypertension, end-stage renal disease, peritoneal dialysis dependent, anemia of chronic kidney disease, secondary hyperparathyroidism, renal disease, bilateral [id number] amputations. ALLERGIES: None. MEDICATIONS: Reviewed per medication list. FAMILY HISTORY: Noncontributory. SOCIAL HISTORY: Resides with ____. REVIEW OF SYSTEMS: As above, otherwise noncontributory. PHYSICAL EXAMINATION: The patient is under investigation for COVID-19 and as such physical examination was not pursued. LABORATORY DATA: Sodium 139, potassium 3.5, chloride 103, CO2 22, BUN 34, creatinine 5.9, GFR 7.2, calcium is 7, albumin 1.4. Hemoglobin 9.5, hematocrit 29%, white count 14.3, platelets 205. IMPRESSION: 1. End-stage renal disease secondary to diabetic nephropathy -- peritoneal dialysis dependent. 2. Sepsis syndrome -- rule out COVID-19. RECOMMENDATIONS: 1. Ongoing peritoneal dialysis. We will begin tonight. 2. Vasopressor support as needed for blood pressure control. Cardiology is on board. 3. Per Infectious Disease. We will follow. RUTH SELF MD DR: FRANCISCO/dionicio JOB#: [id number] / [id number]
[2020-02-03] MEDS: FAMOTIDINE 20 MG/2 ML VIAL IVP SCH (21:14)
[2020-02-03] MEDS: ATORVASTATIN CALCIUM 40 MG TABLET. PO SCH (21:14)
[2020-02-04] VITALS (11 sets, daily range): BP systolic 87–133; BP diastolic 49–72
[2020-02-04] MEDS ORDERED: VANCOMYCIN RANDOM LEVEL. MC ONE (06:00)
[2020-02-04] MEDS: PIPERACILLIN/TAZOBACTAM 2.25 GM in IV NORMAL SALINE 50ML 50 ML IV SCH ×3 (06:11→21:58)
[2020-02-04 06:36] LABS: CALCIUM 7.6 mg/dL (8.5-10.1); CREATININE 5.9 mg/dL (0.6-1.0); GFR 7.2; MAGNESIUM 2.1 mg/dL (1.8-2.4)
--- NOTE | 2020-02-04 07:16 | PDOC ---
PULMONARY PROGRESS NOTES Subjective denies sob cough, on ra Vitals Vital Signs Date Time Temp Pulse Resp B/P (MAP) Pulse Ox O2 Delivery O2 Flow Rate FiO2 02/04/20 06:00 65 18 94/55 (68) Room Air 02/04/20 03:00 98.4 100 98.4 02/03/20 16:00 2.0 ROS: No Nausea, No Chest Pain, No Abdominal Pain General: Alert Lungs: Clear Cardiovascular: S1, S2 Abdomen: Soft, Non-tender Neuro Exam: Alert Extremities: No Edema Skin: Warm Labs Laboratory Tests Test 02/02/20 13:00 02/02/20 13:20 02/02/20 13:35 02/02/20 17:45 White Blood Count 18.2 x10^3/uL (4.0-11.0) Red Blood Count 4.10 x10^6/uL (3.50-5.40) Hemoglobin 13.4 g/dL (12.0-15.5) Hematocrit 40.3 % (36.0-47.0) Mean Corpuscular Volume 98 fL (79-100) Mean Corpuscular Hemoglobin 33 pg (25-35) Mean Corpuscular Hemoglobin Concent 33 g/dL (31-37) Red Cell Distribution Width 17.5 % (11.5-14.5) Platelet Count 310 x10^3/uL (140-400) Neutrophils (%) (Auto) 77 % (31-73) Lymphocytes (%) (Auto) 16 % (24-48) Monocytes (%) (Auto) 6 % (0-9) Eosinophils (%) (Auto) 0 % (0-3) Basophils (%) (Auto) 1 % (0-3) Neutrophils # (Auto) 14.1 x10^3/uL (1.8-7.7) Lymphocytes # (Auto) 2.9 x10^3/uL (1.0-4.8) Monocytes # (Auto) 1.1 x10^3/uL (0.0-1.1) Eosinophils # (Auto) 0.0 x10^3/uL (0.0-0.7) Basophils # (Auto) 0.1 x10^3/uL (0.0-0.2) Segmented Neutrophils % 78 % (35-66) Band Neutrophils % 2 % (0-9) Lymphocytes % 17 % (24-48) Monocytes % 3 % (0-10) Platelet Estimate Adequate (ADEQUATE) Platelet Clumps, EDTA Present Anisocytosis Slight Sodium Level 136 mmol/L (136-145) Potassium Level 2.7 mmol/L (3.5-5.1) Chloride Level 93 mmol/L (98-107) Carbon Dioxide Level 26 mmol/L (21-32) Anion Gap 17 (6-14) Blood Urea Nitrogen 33 mg/dL (7-20) Creatinine 6.5 mg/dL (0.6-1.0) Estimated GFR (Cockcroft-Gault) 6.4 Glucose Level 201 mg/dL (70-99) Lactic Acid Level 5.1 mmol/L (0.4-2.0) Calcium Level 8.2 mg/dL (8.5-10.1) Magnesium Level 1.6 mg/dL (1.8-2.4) Total Bilirubin 0.3 mg/dL (0.2-1.0) Direct Bilirubin 0.1 mg/dL (0.0-0.2) Aspartate Amino Transf (AST/SGOT) 22 U/L (15-37) Alanine Aminotransferase (ALT/SGPT) 13 U/L (14-59) Alkaline Phosphatase 90 U/L (46-116) Troponin I Quantitative 0.160 ng/mL (0.000-0.055) XP-Fsa-P-Type Natriuretic Peptide 58435 pg/mL (0-124) Total Protein 7.3 g/dL (6.4-8.2) Albumin 1.7 g/dL (3.4-5.0) Lipase 46 U/L (73-393) O2 Saturation 99 % (92-99) Arterial Blood pH 7.51 (7.35-7.45) Arterial Blood pCO2 at Patient Temp 28 mmHg (35-46) Arterial Blood pO2 at Patient Temp 153 mmHg (65-108) Arterial Blood HCO3 21 mmol/L (21-28) Arterial Blood Base Excess -1 mmol/L (-3-3) Oxyhemoglobin 98.0 % Methemoglobin 0.3 % (0.0-1.9) Carbon Monoxide, Quantitative 0.3 % (0.0-1.9) FiO2 36 Coronavirus (PCR) Not detected (Not Detected) Test 02/02/20 18:30 02/02/20 22:10 02/03/20 05:45 02/03/20 08:30 Lactic Acid Level 2.0 mmol/L (0.4-2.0) 1.2 mmol/L (0.4-2.0) Glucose (Fingerstick) 135 mg/dL (70-99) 83 mg/dL (70-99) White Blood Count 14.3 x10^3/uL (4.0-11.0) Red Blood Count 2.96 x10^6/uL (3.50-5.40) Hemoglobin 9.5 g/dL (12.0-15.5) Hematocrit 29.2 % (36.0-47.0) Mean Corpuscular Volume 99 fL (79-100) Mean Corpuscular Hemoglobin 32 pg (25-35) Mean Corpuscular Hemoglobin Concent 33 g/dL (31-37) Red Cell Distribution Width 17.5 % (11.5-14.5) Platelet Count 205 x10^3/uL (140-400) Neutrophils (%) (Auto) 68 % (31-73) Lymphocytes (%) (Auto) 22 % (24-48) Monocytes (%) (Auto) 7 % (0-9) Eosinophils (%) (Auto) 1 % (0-3) Basophils (%) (Auto) 1 % (0-3) Neutrophils # (Auto) 9.7 x10^3/uL (1.8-7.7) Lymphocytes # (Auto) 3.2 x10^3/uL (1.0-4.8) Monocytes # (Auto) 1.0 x10^3/uL (0.0-1.1) Eosinophils # (Auto) 0.2 x10^3/uL (0.0-0.7) Basophils # (Auto) 0.1 x10^3/uL (0.0-0.2) Sodium Level 139 mmol/L (136-145) Potassium Level 3.5 mmol/L (3.5-5.1) Chloride Level 103 mmol/L (98-107) Carbon Dioxide Level 22 mmol/L (21-32) Anion Gap 14 (6-14) Blood Urea Nitrogen 34 mg/dL (7-20) Creatinine 5.9 mg/dL (0.6-1.0) Estimated GFR (Cockcroft-Gault) 7.2 Glucose Level 96 mg/dL (70-99) Calcium Level 7.0 mg/dL (8.5-10.1) Magnesium Level 2.2 mg/dL (1.8-2.4) Total Bilirubin 0.4 mg/dL (0.2-1.0) Direct Bilirubin 0.2 mg/dL (0.0-0.2) Aspartate Amino Transf (AST/SGOT) 23 U/L (15-37) Alanine Aminotransferase (ALT/SGPT) 12 U/L (14-59) Alkaline Phosphatase 75 U/L (46-116) Lactate Dehydrogenase 214 U/L (81-234) Troponin I Quantitative 0.268 ng/mL (0.000-0.055) Total Protein 5.1 g/dL (6.4-8.2) Albumin 1.4 g/dL (3.4-5.0) Test 02/03/20 12:24 02/03/20 18:00 02/04/20 06:00 Glucose (Fingerstick) 90 mg/dL (70-99) 101 mg/dL (70-99) Sodium Level 139 mmol/L (136-145) Potassium Level 3.0 mmol/L (3.5-5.1) Chloride Level 102 mmol/L (98-107) Carbon Dioxide Level 22 mmol/L (21-32) Anion Gap 15 (6-14) Blood Urea Nitrogen 32 mg/dL (7-20) Creatinine 5.9 mg/dL (0.6-1.0) Estimated GFR (Cockcroft-Gault) 7.2 Glucose Level 96 mg/dL (70-99) Calcium Level 7.6 mg/dL (8.5-10.1) Magnesium Level 2.1 mg/dL (1.8-2.4) Troponin I Quantitative 0.153 ng/mL (0.000-0.055) Random Vancomycin Level 24.0 mcg/mL Laboratory Tests Test 02/03/20 08:30 02/03/20 12:24 02/03/20 18:00 02/04/20 06:00 Glucose (Fingerstick) 83 mg/dL (70-99) 90 mg/dL (70-99) 101 mg/dL (70-99) Sodium Level 139 mmol/L (136-145) Potassium Level 3.0 mmol/L (3.5-5.1) Chloride Level 102 mmol/L (98-107) Carbon Dioxide Level 22 mmol/L (21-32) Anion Gap 15 (6-14) Blood Urea Nitrogen 32 mg/dL (7-20) Creatinine 5.9 mg/dL (0.6-1.0) Estimated GFR (Cockcroft-Gault) 7.2 Glucose Level 96 mg/dL (70-99) Calcium Level 7.6 mg/dL (8.5-10.1) Magnesium Level 2.1 mg/dL (1.8-2.4) Troponin I Quantitative 0.153 ng/mL (0.000-0.055) Random Vancomycin Level 24.0 mcg/mL Medications Active Scripts Medications Dose Route/Sig Max Daily Dose Days Date Category Bactrim Ds Tablet (Sulfamethoxazole/Trimethoprim) 1 Each Tablet 1 Tab PO BID 10 09/22/19 Reported [place] 5-325 Tablet (Acetaminophen/Hydrocodone Bitart) 1 Each Tablet 1 Tab PO Q4-6HRS 09/22/19 Reported Amlodipine Besylate 5 Mg Tablet 5 Mg PO DAILY 09/21/19 Reported Aspir-Low (Aspirin) 81 Mg Tablet.dr 81 Mg PO DAILY 09/21/19 Reported Renvela (Sevelamer Carbonate) 800 Mg Tablet 800 Mg PO TIDWMEALS 09/21/19 Reported Atorvastatin Calcium 80 Mg Tablet 80 Mg PO QHS 09/21/19 Reported Gabapentin (Gabapentin) 100 Mg Capsule 100 Mg PO TID 09/21/19 Reported Losartan Potassium (Losartan Potassium) 25 Mg Tablet 25 Mg PO DAILY 09/21/19 Reported Metoprolol Succinate ( Xl ) (Metoprolol Succinate) 25 Mg Tab.er.24h 25 Mg PO BID 09/21/19 Reported Clopidogrel (Clopidogrel Bisulfate) 75 Mg Tablet 75 Mg PO DAILY 09/21/19 Reported Impression . IMPRESSION: 1. Sepsis, source unknown. Her chest x-ray does not show infiltrate. She does not make urine. 2. End-stage renal disease, on peritoneal dialysis. 3. Electrolyte imbalance. 4. Hypokalemia, . 5. Weakness, ? etiology. 6. Peripheral vascular disease, status post bilateral above-knee amputation. 7. Diabetes mellitus. 8. History of hypertension. 9. COVID-19 neg Plan . PLAN AND RECOMMENDATIONS: 1. Titrate FiO2 to keep O2 saturation 92%. 2. Heparin for DVT prophylaxis. 3. Pepcid for stress ulcer prophylaxis. 4. Continue antibiotic. Follow up cultures. 5. Nephrology is on the case. 6. Her BNP on admission was 15,939, peritoneal dialysis per Nephrology. 7. Monitor troponin could be due to demand ischemia. 8. COVID-19 neg 9. off pressors 10. Cardiology is consulted. discussed w rn, rt, pt BUNNY GANN MD Feb 04, 2020 07:16
[2020-02-04] MEDS ORDERED: POTASSIUM CHLORIDE 20MEQ 100 ML IV ONE (07:30)
[2020-02-04] MEDS: VANCOMYCIN PER PHARMACY MC PRN (07:50)
--- NOTE | 2020-02-04 07:54 | NUR ---
Pharmacy Vancomycin Dosing Note S:Consulted to monitor and dose vancomycin started 02/02/20. O:ADELIA ANGLIN is a 64 year old F with Sepsis . Height: 4 feet, 0 inches Weight: 54.7 kg [place] Body Weight: 17.90 Adjusted Body Weight: 32.62 Dosing Weight: Actual Other Antibiotics: ZOSYN LABS: Last BUN: 32 Last Creatinine: 5.9 Creatinine Clearance: PD mL/min Last WBC: 14.3 Last Procalcitonin: - Tmax (past 24 hours): 98.1 Microbiology: 02/03 BCX NGTD I/O: 1150/0 Drug Levels: Last Random level: 24 on 02/04/20 at 0600 Last dose given 02/02/20 at 1350 Vancomycin Dosing: Loading Dose: 1500 mg x1 Dosing Weight: Actual Target Trough: 15-20 A: Based on: RANDOM LEVEL, P: 1. NO FURTHER Vancomycin AT THIS TIME 2. Follow up Random level on 02/06/20 at 0600 3. Pharmacy will continue to monitor, follow and adjust therapy as needed. DONATO FRASER [facility], 02/04/20 [id number]
[2020-02-04] MEDS: INSULIN LISPRO 300 UNITS/3 ML VIAL. SQ SCH ×3 (07:58→16:53)
[2020-02-04] MEDS: ELECTROLYTE (ICU) PROTOCOL. MC SCH (08:46)
[2020-02-04] MEDS: CLOPIDOGREL BISULFATE 75 MG TABLET PO SCH (08:48)
[2020-02-04] MEDS: LACTOBACILLUS RHAMNOSUS GG 1 CAPSULE. PO SCH ×2 (08:48→20:46)
[2020-02-04] MEDS: ASPIRIN ENTERIC COATED 81 MG TABLET.DR. PO SCH (08:48)
[2020-02-04] MEDS: HEPARIN for SUB-Q USE 5,000 UNIT/ML VIAL. SQ SCH ×2 (08:50→20:48)
[2020-02-04] MEDS: SENNOSIDES/DOCUSATE 8.6/50MG TABLET. PO SCH ×2 (08:52→20:46)
--- NOTE | 2020-02-04 10:49 | PDOC ---
PROGRESS NOTES Chief Complaint Chief Complaint Septic Shock, unclear source: broad spectrum abx for now, continue blood cultures. covid negative Sacral Decub Ulcer stage 1 POA: wound care consulted lactic acidosis: lactate improved Hypokalemia: replete as needed HypoMagnesemia: replete as needed ESRD on PD: nephro consult for PD Leukocytosis: trend CBC Nausea and Vomiting: advance diet as tolerated Elevated Trop: likely demand ischemia; apprec cards Elevated BNP: echo pending Hx of CVA DVT PPX GI PPX diet: CLD FULL CODE okay to transfer to floor bed. Vitals Vitals Vital Signs Date Time Temp Pulse Resp B/P (MAP) Pulse Ox O2 Delivery O2 Flow Rate FiO2 02/04/20 08:00 Room Air 02/04/20 07:00 77 18 105/56 (72) 02/04/20 03:00 98.4 100 98.4 02/03/20 16:00 2.0 Physical Exam General: mild distress Heart: Regular rate Lungs: Clear Abdomen: Normal bowel sounds Labs LABS Laboratory Tests Test 02/03/20 12:24 02/03/20 18:00 02/04/20 06:00 02/04/20 07:33 Glucose (Fingerstick) 90 mg/dL (70-99) 101 mg/dL (70-99) 83 mg/dL (70-99) Sodium Level 139 mmol/L (136-145) Potassium Level 3.0 mmol/L (3.5-5.1) Chloride Level 102 mmol/L (98-107) Carbon Dioxide Level 22 mmol/L (21-32) Anion Gap 15 (6-14) Blood Urea Nitrogen 32 mg/dL (7-20) Creatinine 5.9 mg/dL (0.6-1.0) Estimated GFR (Cockcroft-Gault) 7.2 Glucose Level 96 mg/dL (70-99) Calcium Level 7.6 mg/dL (8.5-10.1) Magnesium Level 2.1 mg/dL (1.8-2.4) Troponin I Quantitative 0.153 ng/mL (0.000-0.055) Random Vancomycin Level 24.0 mcg/mL Assessment and Plan Assessmemt and Plan Problems Medical Problems: (1) Septic shock Status: Acute Comment Review of Relevant I have reviewed the following items sujatha (where applicable) has been applied. Labs Laboratory Tests Test 02/02/20 13:00 02/02/20 13:20 02/02/20 13:35 02/02/20 17:45 White Blood Count 18.2 x10^3/uL (4.0-11.0) Red Blood Count 4.10 x10^6/uL (3.50-5.40) Hemoglobin 13.4 g/dL (12.0-15.5) Hematocrit 40.3 % (36.0-47.0) Mean Corpuscular Volume 98 fL (79-100) Mean Corpuscular Hemoglobin 33 pg (25-35) Mean Corpuscular Hemoglobin Concent 33 g/dL (31-37) Red Cell Distribution Width 17.5 % (11.5-14.5) Platelet Count 310 x10^3/uL (140-400) Neutrophils (%) (Auto) 77 % (31-73) Lymphocytes (%) (Auto) 16 % (24-48) Monocytes (%) (Auto) 6 % (0-9) Eosinophils (%) (Auto) 0 % (0-3) Basophils (%) (Auto) 1 % (0-3) Neutrophils # (Auto) 14.1 x10^3/uL (1.8-7.7) Lymphocytes # (Auto) 2.9 x10^3/uL (1.0-4.8) Monocytes # (Auto) 1.1 x10^3/uL (0.0-1.1) Eosinophils # (Auto) 0.0 x10^3/uL (0.0-0.7) Basophils # (Auto) 0.1 x10^3/uL (0.0-0.2) Segmented Neutrophils % 78 % (35-66) Band Neutrophils % 2 % (0-9) Lymphocytes % 17 % (24-48) Monocytes % 3 % (0-10) Platelet Estimate Adequate (ADEQUATE) Platelet Clumps, EDTA Present Anisocytosis Slight Sodium Level 136 mmol/L (136-145) Potassium Level 2.7 mmol/L (3.5-5.1) Chloride Level 93 mmol/L (98-107) Carbon Dioxide Level 26 mmol/L (21-32) Anion Gap 17 (6-14) Blood Urea Nitrogen 33 mg/dL (7-20) Creatinine 6.5 mg/dL (0.6-1.0) Estimated GFR (Cockcroft-Gault) 6.4 Glucose Level 201 mg/dL (70-99) Lactic Acid Level 5.1 mmol/L (0.4-2.0) Calcium Level 8.2 mg/dL (8.5-10.1) Magnesium Level 1.6 mg/dL (1.8-2.4) Total Bilirubin 0.3 mg/dL (0.2-1.0) Direct Bilirubin 0.1 mg/dL (0.0-0.2) Aspartate Amino Transf (AST/SGOT) 22 U/L (15-37) Alanine Aminotransferase (ALT/SGPT) 13 U/L (14-59) Alkaline Phosphatase 90 U/L (46-116) Troponin I Quantitative 0.160 ng/mL (0.000-0.055) DD-[id number]-Type Natriuretic Peptide 42908 pg/mL (0-124) Total Protein 7.3 g/dL (6.4-8.2) Albumin 1.7 g/dL (3.4-5.0) Lipase 46 U/L (73-393) O2 Saturation 99 % (92-99) Arterial Blood pH 7.51 (7.35-7.45) Arterial Blood pCO2 at Patient Temp 28 mmHg (35-46) Arterial Blood pO2 at Patient Temp 153 mmHg (65-108) Arterial Blood HCO3 21 mmol/L (21-28) Arterial Blood Base Excess -1 mmol/L (-3-3) Oxyhemoglobin 98.0 % Methemoglobin 0.3 % (0.0-1.9) Carbon Monoxide, Quantitative 0.3 % (0.0-1.9) FiO2 36 Coronavirus (PCR) Not detected (Not Detected) Test 02/02/20 18:30 02/02/20 22:10 02/03/20 05:45 02/03/20 08:30 Lactic Acid Level 2.0 mmol/L (0.4-2.0) 1.2 mmol/L (0.4-2.0) Glucose (Fingerstick) 135 mg/dL (70-99) 83 mg/dL (70-99) White Blood Count 14.3 x10^3/uL (4.0-11.0) Red Blood Count 2.96 x10^6/uL (3.50-5.40) Hemoglobin 9.5 g/dL (12.0-15.5) Hematocrit 29.2 % (36.0-47.0) Mean Corpuscular Volume 99 fL (79-100) Mean Corpuscular Hemoglobin 32 pg (25-35) Mean Corpuscular Hemoglobin Concent 33 g/dL (31-37) Red Cell Distribution Width 17.5 % (11.5-14.5) Platelet Count 205 x10^3/uL (140-400) Neutrophils (%) (Auto) 68 % (31-73) Lymphocytes (%) (Auto) 22 % (24-48) Monocytes (%) (Auto) 7 % (0-9) Eosinophils (%) (Auto) 1 % (0-3) Basophils (%) (Auto) 1 % (0-3) Neutrophils # (Auto) 9.7 x10^3/uL (1.8-7.7) Lymphocytes # (Auto) 3.2 x10^3/uL (1.0-4.8) Monocytes # (Auto) 1.0 x10^3/uL (0.0-1.1) Eosinophils # (Auto) 0.2 x10^3/uL (0.0-0.7) Basophils # (Auto) 0.1 x10^3/uL (0.0-0.2) Sodium Level 139 mmol/L (136-145) Potassium Level 3.5 mmol/L (3.5-5.1) Chloride Level 103 mmol/L (98-107) Carbon Dioxide Level 22 mmol/L (21-32) Anion Gap 14 (6-14) Blood Urea Nitrogen 34 mg/dL (7-20) Creatinine 5.9 mg/dL (0.6-1.0) Estimated GFR (Cockcroft-Gault) 7.2 Glucose Level 96 mg/dL (70-99) Calcium Level 7.0 mg/dL (8.5-10.1) Magnesium Level 2.2 mg/dL (1.8-2.4) Total Bilirubin 0.4 mg/dL (0.2-1.0) Direct Bilirubin 0.2 mg/dL (0.0-0.2) Aspartate Amino Transf (AST/SGOT) 23 U/L (15-37) Alanine Aminotransferase (ALT/SGPT) 12 U/L (14-59) Alkaline Phosphatase 75 U/L (46-116) Lactate Dehydrogenase 214 U/L (81-234) Troponin I Quantitative 0.268 ng/mL (0.000-0.055) Total Protein 5.1 g/dL (6.4-8.2) Albumin 1.4 g/dL (3.4-5.0) Test 02/03/20 12:24 02/03/20 18:00 02/04/20 06:00 02/04/20 07:33 Glucose (Fingerstick) 90 mg/dL (70-99) 101 mg/dL (70-99) 83 mg/dL (70-99) Sodium Level 139 mmol/L (136-145) Potassium Level 3.0 mmol/L (3.5-5.1) Chloride Level 102 mmol/L (98-107) Carbon Dioxide Level 22 mmol/L (21-32) Anion Gap 15 (6-14) Blood Urea Nitrogen 32 mg/dL (7-20) Creatinine 5.9 mg/dL (0.6-1.0) Estimated GFR (Cockcroft-Gault) 7.2 Glucose Level 96 mg/dL (70-99) Calcium Level 7.6 mg/dL (8.5-10.1) Magnesium Level 2.1 mg/dL (1.8-2.4) Troponin I Quantitative 0.153 ng/mL (0.000-0.055) Random Vancomycin Level 24.0 mcg/mL Laboratory Tests Test 02/03/20 12:24 02/03/20 18:00 02/04/20 06:00 02/04/20 07:33 Glucose (Fingerstick) 90 mg/dL (70-99) 101 mg/dL (70-99) 83 mg/dL (70-99) Sodium Level 139 mmol/L (136-145) Potassium Level 3.0 mmol/L (3.5-5.1) Chloride Level 102 mmol/L (98-107) Carbon Dioxide Level 22 mmol/L (21-32) Anion Gap 15 (6-14) Blood Urea Nitrogen 32 mg/dL (7-20) Creatinine 5.9 mg/dL (0.6-1.0) Estimated GFR (Cockcroft-Gault) 7.2 Glucose Level 96 mg/dL (70-99) Calcium Level 7.6 mg/dL (8.5-10.1) Magnesium Level 2.1 mg/dL (1.8-2.4) Troponin I Quantitative 0.153 ng/mL (0.000-0.055) Random Vancomycin Level 24.0 mcg/mL Microbiology 02/02/20 Blood Culture - Preliminary, Resulted NO GROWTH AFTER 1 DAY Medications Current Medications Sodium Chloride 500 ml @ 500 mls/hr 1X ONCE IV Last administered on 02/02/20at 13:15; Start 02/02/20 at 13:15; Stop 02/02/20 at 14:14; Status DC Piperacillin Sod/ Tazobactam Sod (Zosyn Per Pharmacy) 1 each PRN DAILY PRN MC SEE COMMENTS; Start 02/02/20 at 13:30; Status UNV Vancomycin HCl (Vanco Per Pharmacy) 1 each PRN DAILY PRN MC SEE COMMENTS; Start 02/02/20 at 13:30; Status UNV Piperacillin Sod/ Tazobactam Sod 2.25 gm/Sodium Chloride 50 ml @ 100 mls/hr 1X ONCE IV Last administered on 02/02/20at 13:50; Start 02/02/20 at 14:00; Stop 02/02/20 at 14:29; Status DC Vancomycin HCl 1.5 gm/Sodium Chloride 500 ml @ 250 mls/hr 1X ONCE IV Last administered on 02/02/20at 13:50; Start 02/02/20 at 14:30; Stop 02/02/20 at 16:29; Status DC Potassium Chloride/Water 100 ml @ 50 mls/hr Q1H IV Last administered on 02/02/20at 19:24; Start 02/02/20 at 15:00; Stop 02/02/20 at 16:59; Status DC Norepinephrine Bitartrate 8 mg/ Dextrose 258 ml @ 12.926 mls/ hr 1X ONCE IV ; Start 02/02/20 at 14:45; Stop 02/03/20 at 10:42; Status DC Sodium Chloride 500 ml @ 500 mls/hr 1X ONCE IV Last administered on 02/02/20at 13:50; Start 02/02/20 at 14:45; Stop 02/02/20 at 15:44; Status DC Sodium Chloride 500 ml @ 500 mls/hr 1X ONCE IV Last administered on 02/02/20at 16:29; Start 02/02/20 at 14:45; Stop 02/02/20 at 15:44; Status DC Magnesium Sulfate 50 ml @ 25 mls/hr 1X ONCE IV Last administered on 02/02/20at 17:07; Start 02/02/20 at 15:30; Stop 02/02/20 at 17:29; Status DC Acetaminophen (Tylenol) 650 mg PRN Q6HRS PRN PO Headaches, Temp > 101.5' Last administered on 02/03/20at 17:55; Start 02/02/20 at 15:45 Famotidine (Pepcid Vial) 20 mg QHS IVP Last administered on 02/03/20 21:14; Start 02/02/20 at 21:00 Info (Icu Electrolyte Protocol) 1 ea DAILY MC Last administered on 02/04/20at 08:46; Start 02/03/20 at 09:00 Heparin Sodium (Porcine) (Heparin Sodium) 5,000 unit Q12HR SQ Last administered on 02/04/20at 08:50; Start 02/02/20 at 21:00 Sodium Chloride (Normal Saline Flush) 3 ml QSHIFT PRN IV AFTER MEDS AND BLOOD DRAWS; Start 02/02/20 at 15:45 Senna/Docusate Sodium (Senna Plus) 1 tab BID PO Last administered on 02/03/20at 21:14; Start 02/02/20 at 21:00 Potassium Chloride/Sodium Chloride 1,000 ml @ 100 mls/hr 1X ONCE IV Last administered on 02/02/20at 19:23; Start 02/02/20 at 18:00; Stop 02/03/20 at 03:59; Status DC Piperacillin Sod/ Tazobactam Sod (Zosyn Per Pharmacy) 1 each PRN DAILY PRN MC SEE COMMENTS; Start 02/02/20 at 16:00 Vancomycin HCl (Vanco Per Pharmacy) 1 each PRN DAILY PRN MC SEE COMMENTS Last administered on 02/04/20at 07:50; Start 02/02/20 at 16:00 Insulin Human Lispro (HumaLOG) 0-7 UNITS TIDWMEALS SQ ; Start 02/02/20 at 17:00 Dextrose (Dextrose 50%-Water Syringe) 12.5 gm PRN Q15MIN PRN IV SEE COMMENTS; Start 02/02/20 at 16:00 Aspirin (Ecotrin) 81 mg DAILY PO Last administered on 02/04/20at 08:48; Start 02/03/20 at 09:00 Clopidogrel Bisulfate (Plavix) 75 mg DAILY PO Last administered on 02/04/20at 08:48; Start 02/03/20 at 09:00 Atorvastatin Calcium (Lipitor) 80 mg QHS PO Last administered on 02/03/20at 21:14; Start 02/02/20 at 21:00 Piperacillin Sod/ Tazobactam Sod 2.25 gm/Sodium Chloride 50 ml @ 100 mls/hr Q8HRS IV Last administered on 02/04/20at 06:11; Start 02/02/20 at 22:00 Vancomycin HCl (Vancomycin Random Level) 1 each 1X ONCE MC Last administered on 02/04/20at 06:00; Start 02/04/20 at 06:00; Stop 02/04/20 at 06:01; Status DC Info (PHARMACY MONITORING -- do not chart) 1 each PRN DAILY PRN MC SEE COMMENTS; Start 02/03/20 at 13:15 Potassium Chloride/Water 100 ml @ 100 mls/hr 1X ONCE IV Last administered on 02/04/20at 07:58; Start 02/04/20 at 07:30; Stop 02/04/20 at 08:29; Status DC Vancomycin HCl (Vancomycin Random Level) 1 each 1X ONCE MC ; Start 02/06/20 at 06:00; Stop 02/06/20 at 06:01 Lactobacillus Rhamnosus (Culturelle) 1 cap BID PO Last administered on 02/04/20at 08:48; Start 02/04/20 at 09:00 Active Scripts Active Reported Bactrim Ds Tablet (Sulfamethoxazole/Trimethoprim) 1 Each Tablet 1 Tab PO BID 10 Days [place] 5-325 Tablet (Acetaminophen/Hydrocodone Bitart) 1 Each Tablet 1 Tab PO Q4- 6HRS Amlodipine Besylate 5 Mg Tablet 5 Mg PO DAILY Aspir-Low (Aspirin) 81 Mg Tablet.dr 81 Mg PO DAILY Renvela (Sevelamer Carbonate) 800 Mg Tablet 800 Mg PO TIDWMEALS Atorvastatin Calcium 80 Mg Tablet 80 Mg PO QHS Gabapentin (Gabapentin) 100 Mg Capsule 100 Mg PO TID Losartan Potassium (Losartan Potassium) 25 Mg Tablet 25 Mg PO DAILY Metoprolol Succinate ( Xl ) (Metoprolol Succinate) 25 Mg Tab.er.24h 25 Mg PO BID Clopidogrel (Clopidogrel Bisulfate) 75 Mg Tablet 75 Mg PO DAILY Vitals/I & O Vital Sign - Last 24 Hours 02/03/20 02/03/20 02/03/20 02/03/20 11:00 12:00 12:00 13:00 Temp 97.9 97.9 Pulse 60 62 62 Resp 15 17 16 B/P (MAP) 109/55 (73) 110/54 (72) 105/52 (69) Pulse Ox 100 100 100 O2 Delivery Room Air Room Air Nasal Cannula Room Air O2 Flow Rate 2.0 02/03/20 02/03/20 02/03/20 02/03/20 14:00 15:00 16:00 16:00 Temp 98.0 98.0 Pulse 59 62 69 Resp 37 22 28 B/P (MAP) 112/54 (73) 111/56 (74) 145/71 (95) Pulse Ox 100 100 97 O2 Delivery Room Air Room Air Nasal Cannula Room Air O2 Flow Rate 2.0 02/03/20 02/03/20 02/03/20 02/03/20 17:00 18:00 19:00 20:00 Temp 98.0 98.0 Pulse 68 76 62 Resp 20 38 22 B/P (MAP) 113/55 (74) 141/63 (89) 111/56 (74) Pulse Ox 100 99 100 O2 Delivery Room Air Room Air Room Air Room Air 02/03/20 02/03/20 02/03/20 02/03/20 20:00 21:00 22:00 23:00 Pulse 68 68 66 80 Resp 20 25 28 28 B/P (MAP) 139/69 (92) 131/65 (87) 151/85 (107) 133/66 (88) Pulse Ox 100 100 100 100 O2 Delivery Room Air Room Air Room Air Room Air 02/04/20 02/04/20 02/04/20 02/04/20 00:00 00:00 01:00 02:00 Pulse 82 56 62 Resp 19 19 16 B/P (MAP) 133/53 (79) 87/52 (64) 91/53 (66) Pulse Ox 100 100 100 O2 Delivery Room Air Room Air Room Air Room Air 02/04/20 02/04/20 02/04/20 02/04/20 03:00 04:00 04:00 05:00 Temp 98.4 98.4 Pulse 61 64 69 Resp 22 18 18 B/P (MAP) 103/56 (72) 103/57 (72) 94/49 (64) Pulse Ox 100 O2 Delivery Room Air Room Air Room Air Room Air 02/04/20 02/04/20 02/04/20 06:00 07:00 08:00 Pulse 65 77 Resp 18 18 B/P (MAP) 94/55 (68) 105/56 (72) O2 Delivery Room Air Room Air Room Air Intake and Output 02/03/20 02/03/20 02/04/20 15:00 23:00 07:00 Intake Total 50 ml 120 ml Output Total 0 ml 0 ml 0 ml Balance 50 ml 120 ml 0 ml Justicifation of Admission Dx: Justifications for Admission: Justification of Admission Dx: Yes Sepsis: Infection GELY HOLDER MD Feb 04, 2020 10:49
--- NOTE | 2020-02-04 11:02 | PDOC ---
PROGRESS NOTES Subjective Subjective Patient seen and examined Objective Objective Vital Signs Date Time Temp Pulse Resp B/P (MAP) Pulse Ox O2 Delivery O2 Flow Rate FiO2 02/04/20 08:00 Room Air 02/04/20 07:00 77 18 105/56 (72) 02/04/20 03:00 98.4 100 98.4 02/03/20 16:00 2.0 Intake and Output 02/04/20 07:00 Intake Total 170 ml Output Total 0 ml Balance 170 ml Intake Oral 120 ml IV Total 50 ml Output Urine Total 0 ml # Bowel Movements 1 Physical Exam Abdomen: Normal bowel sounds Heart: Regular rate General: mild distress Lungs: Other (Mildly decreased breath sounds) Assessment Assessment Problems Medical Problems: (1) Septic shock Status: Acute 1. Sepsis. Continuing IV antibiotics and pressors as needed. Blood pressure has improved. ECHO pending. 2. End-stage renal disease on peritoneal dialysis. Renal is following the patient. 3. Minimally elevated troponin at 0.6268. No acute ischemic EKG changes. Most consistent with demand mediated ischemia. Will trend troponin and continue on telemetry. Echocardiogram. 4. Diabetes mellitus. As per the primary service. 5. History of a CVA. Comment Review of Relevant I have reviewed the following items sujatha (where applicable) has been applied. Labs Laboratory Tests Test 02/02/20 13:00 02/02/20 13:20 02/02/20 13:35 02/02/20 17:45 White Blood Count 18.2 x10^3/uL (4.0-11.0) Red Blood Count 4.10 x10^6/uL (3.50-5.40) Hemoglobin 13.4 g/dL (12.0-15.5) Hematocrit 40.3 % (36.0-47.0) Mean Corpuscular Volume 98 fL (79-100) Mean Corpuscular Hemoglobin 33 pg (25-35) Mean Corpuscular Hemoglobin Concent 33 g/dL (31-37) Red Cell Distribution Width 17.5 % (11.5-14.5) Platelet Count 310 x10^3/uL (140-400) Neutrophils (%) (Auto) 77 % (31-73) Lymphocytes (%) (Auto) 16 % (24-48) Monocytes (%) (Auto) 6 % (0-9) Eosinophils (%) (Auto) 0 % (0-3) Basophils (%) (Auto) 1 % (0-3) Neutrophils # (Auto) 14.1 x10^3/uL (1.8-7.7) Lymphocytes # (Auto) 2.9 x10^3/uL (1.0-4.8) Monocytes # (Auto) 1.1 x10^3/uL (0.0-1.1) Eosinophils # (Auto) 0.0 x10^3/uL (0.0-0.7) Basophils # (Auto) 0.1 x10^3/uL (0.0-0.2) Segmented Neutrophils % 78 % (35-66) Band Neutrophils % 2 % (0-9) Lymphocytes % 17 % (24-48) Monocytes % 3 % (0-10) Platelet Estimate Adequate (ADEQUATE) Platelet Clumps, EDTA Present Anisocytosis Slight Sodium Level 136 mmol/L (136-145) Potassium Level 2.7 mmol/L (3.5-5.1) Chloride Level 93 mmol/L (98-107) Carbon Dioxide Level 26 mmol/L (21-32) Anion Gap 17 (6-14) Blood Urea Nitrogen 33 mg/dL (7-20) Creatinine 6.5 mg/dL (0.6-1.0) Estimated GFR (Cockcroft-Gault) 6.4 Glucose Level 201 mg/dL (70-99) Lactic Acid Level 5.1 mmol/L (0.4-2.0) Calcium Level 8.2 mg/dL (8.5-10.1) Magnesium Level 1.6 mg/dL (1.8-2.4) Total Bilirubin 0.3 mg/dL (0.2-1.0) Direct Bilirubin 0.1 mg/dL (0.0-0.2) Aspartate Amino Transf (AST/SGOT) 22 U/L (15-37) Alanine Aminotransferase (ALT/SGPT) 13 U/L (14-59) Alkaline Phosphatase 90 U/L (46-116) Troponin I Quantitative 0.160 ng/mL (0.000-0.055) [id number]-Type Natriuretic Peptide 70091 pg/mL (0-124) Total Protein 7.3 g/dL (6.4-8.2) Albumin 1.7 g/dL (3.4-5.0) Lipase 46 U/L (73-393) O2 Saturation 99 % (92-99) Arterial Blood pH 7.51 (7.35-7.45) Arterial Blood pCO2 at Patient Temp 28 mmHg (35-46) Arterial Blood pO2 at Patient Temp 153 mmHg (65-108) Arterial Blood HCO3 21 mmol/L (21-28) Arterial Blood Base Excess -1 mmol/L (-3-3) Oxyhemoglobin 98.0 % Methemoglobin 0.3 % (0.0-1.9) Carbon Monoxide, Quantitative 0.3 % (0.0-1.9) FiO2 36 Coronavirus (PCR) Not detected (Not Detected) Test 02/02/20 18:30 02/02/20 22:10 02/03/20 05:45 02/03/20 08:30 Lactic Acid Level 2.0 mmol/L (0.4-2.0) 1.2 mmol/L (0.4-2.0) Glucose (Fingerstick) 135 mg/dL (70-99) 83 mg/dL (70-99) White Blood Count 14.3 x10^3/uL (4.0-11.0) Red Blood Count 2.96 x10^6/uL (3.50-5.40) Hemoglobin 9.5 g/dL (12.0-15.5) Hematocrit 29.2 % (36.0-47.0) Mean Corpuscular Volume 99 fL (79-100) Mean Corpuscular Hemoglobin 32 pg (25-35) Mean Corpuscular Hemoglobin Concent 33 g/dL (31-37) Red Cell Distribution Width 17.5 % (11.5-14.5) Platelet Count 205 x10^3/uL (140-400) Neutrophils (%) (Auto) 68 % (31-73) Lymphocytes (%) (Auto) 22 % (24-48) Monocytes (%) (Auto) 7 % (0-9) Eosinophils (%) (Auto) 1 % (0-3) Basophils (%) (Auto) 1 % (0-3) Neutrophils # (Auto) 9.7 x10^3/uL (1.8-7.7) Lymphocytes # (Auto) 3.2 x10^3/uL (1.0-4.8) Monocytes # (Auto) 1.0 x10^3/uL (0.0-1.1) Eosinophils # (Auto) 0.2 x10^3/uL (0.0-0.7) Basophils # (Auto) 0.1 x10^3/uL (0.0-0.2) Sodium Level 139 mmol/L (136-145) Potassium Level 3.5 mmol/L (3.5-5.1) Chloride Level 103 mmol/L (98-107) Carbon Dioxide Level 22 mmol/L (21-32) Anion Gap 14 (6-14) Blood Urea Nitrogen 34 mg/dL (7-20) Creatinine 5.9 mg/dL (0.6-1.0) Estimated GFR (Cockcroft-Gault) 7.2 Glucose Level 96 mg/dL (70-99) Calcium Level 7.0 mg/dL (8.5-10.1) Magnesium Level 2.2 mg/dL (1.8-2.4) Total Bilirubin 0.4 mg/dL (0.2-1.0) Direct Bilirubin 0.2 mg/dL (0.0-0.2) Aspartate Amino Transf (AST/SGOT) 23 U/L (15-37) Alanine Aminotransferase (ALT/SGPT) 12 U/L (14-59) Alkaline Phosphatase 75 U/L (46-116) Lactate Dehydrogenase 214 U/L (81-234) Troponin I Quantitative 0.268 ng/mL (0.000-0.055) Total Protein 5.1 g/dL (6.4-8.2) Albumin 1.4 g/dL (3.4-5.0) Test 02/03/20 12:24 02/03/20 18:00 02/04/20 06:00 02/04/20 07:33 Glucose (Fingerstick) 90 mg/dL (70-99) 101 mg/dL (70-99) 83 mg/dL (70-99) Sodium Level 139 mmol/L (136-145) Potassium Level 3.0 mmol/L (3.5-5.1) Chloride Level 102 mmol/L (98-107) Carbon Dioxide Level 22 mmol/L (21-32) Anion Gap 15 (6-14) Blood Urea Nitrogen 32 mg/dL (7-20) Creatinine 5.9 mg/dL (0.6-1.0) Estimated GFR (Cockcroft-Gault) 7.2 Glucose Level 96 mg/dL (70-99) Calcium Level 7.6 mg/dL (8.5-10.1) Magnesium Level 2.1 mg/dL (1.8-2.4) Troponin I Quantitative 0.153 ng/mL (0.000-0.055) Random Vancomycin Level 24.0 mcg/mL Laboratory Tests Test 02/03/20 12:24 02/03/20 18:00 02/04/20 06:00 02/04/20 07:33 Glucose (Fingerstick) 90 mg/dL (70-99) 101 mg/dL (70-99) 83 mg/dL (70-99) Sodium Level 139 mmol/L (136-145) Potassium Level 3.0 mmol/L (3.5-5.1) Chloride Level 102 mmol/L (98-107) Carbon Dioxide Level 22 mmol/L (21-32) Anion Gap 15 (6-14) Blood Urea Nitrogen 32 mg/dL (-20) Creatinine 5.9 mg/dL (0.6-1.0) Estimated GFR (Cockcroft-Gault) 7.2 Glucose Level 96 mg/dL (70-99) Calcium Level 7.6 mg/dL (8.5-10.1) Magnesium Level 2.1 mg/dL (1.8-2.4) Troponin I Quantitative 0.153 ng/mL (0.000-0.055) Random Vancomycin Level 24.0 mcg/mL Microbiology 02/02/20 Blood Culture - Preliminary, Resulted NO GROWTH AFTER 1 DAY Medications Current Medications Sodium Chloride 500 ml @ 500 mls/hr 1X ONCE IV Last administered on 02/02/20at 13:15; Start 02/02/20 at 13:15; Stop 02/02/20 at 14:14; Status DC Piperacillin Sod/ Tazobactam Sod (Zosyn Per Pharmacy) 1 each PRN DAILY PRN MC SEE COMMENTS; Start 02/02/20 at 13:30; Status UNV Vancomycin HCl (Vanco Per Pharmacy) 1 each PRN DAILY PRN MC SEE COMMENTS; Start 02/02/20 at 13:30; Status UNV Piperacillin Sod/ Tazobactam Sod 2.25 gm/Sodium Chloride 50 ml @ 100 mls/hr 1X ONCE IV Last administered on 02/02/20at 13:50; Start 02/02/20 at 14:00; Stop 02/02/20 at 14:29; Status DC Vancomycin HCl 1.5 gm/Sodium Chloride 500 ml @ 250 mls/hr 1X ONCE IV Last administered on 02/02/20at 13:50; Start 02/02/20 at 14:30; Stop 02/02/20 at 16:29; Status DC Potassium Chloride/Water 100 ml @ 50 mls/hr Q1H IV Last administered on 02/02/20at 19:24; Start 02/02/20 at 15:00; Stop 02/02/20 at 16:59; Status DC Norepinephrine Bitartrate 8 mg/ Dextrose 258 ml @ 12.926 mls/ hr 1X ONCE IV ; Start 02/02/20 at 14:45; Stop 02/03/20 at 10:42; Status DC Sodium Chloride 500 ml @ 500 mls/hr 1X ONCE IV Last administered on 02/02/20at 13:50; Start 02/02/20 at 14:45; Stop 02/02/20 at 15:44; Status DC Sodium Chloride 500 ml @ 500 mls/hr 1X ONCE IV Last administered on 02/02/20at 16:29; Start 02/02/20 at 14:45; Stop 02/02/20 at 15:44; Status DC Magnesium Sulfate 50 ml @ 25 mls/hr 1X ONCE IV Last administered on 02/02/20at 17:07; Start 02/02/20 at 15:30; Stop 02/02/20 at 17:29; Status DC Acetaminophen (Tylenol) 650 mg PRN Q6HRS PRN PO Headaches, Temp > 101.5' Last administered on 02/03/20at 17:55; Start 02/02/20 at 15:45 Famotidine (Pepcid Vial) 20 mg QHS IVP Last administered on 02/03/20at 21:14; Start 02/02/20 at 21:00 Info (Icu Electrolyte Protocol) 1 ea DAILY MC Last administered on 02/04/20at 08:46; Start 02/03/20 at 09:00 Heparin Sodium (Porcine) (Heparin Sodium) 5,000 unit Q12HR SQ Last administered on 02/04/20at 08:50; Start 02/02/20 at 21:00 Sodium Chloride (Normal Saline Flush) 3 ml QSHIFT PRN IV AFTER MEDS AND BLOOD DRAWS; Start 02/02/20 at 15:45 Senna/Docusate Sodium (Senna Plus) 1 tab BID PO Last administered on 02/03/20at 21:14; Start 02/02/20 at 21:00 Potassium Chloride/Sodium Chloride 1,000 ml @ 100 mls/hr 1X ONCE IV Last administered on 02/02/20at 19:23; Start 02/02/20 at 18:00; Stop 02/03/20 at 03:59; Status DC Piperacillin Sod/ Tazobactam Sod (Zosyn Per Pharmacy) 1 each PRN DAILY PRN MC SEE COMMENTS; Start 02/02/20 at 16:00 Vancomycin HCl (Vanco Per Pharmacy) 1 each PRN DAILY PRN MC SEE COMMENTS Last administered on 02/04/20at 07:50; Start 02/02/20 at 16:00 Insulin Human Lispro (HumaLOG) 0-7 UNITS TIDWMEALS SQ ; Start 02/02/20 at 17:00 Dextrose (Dextrose 50%-Water Syringe) 12.5 gm PRN Q15MIN PRN IV SEE COMMENTS; Start 02/02/20 at 16:00 Aspirin (Ecotrin) 81 mg DAILY PO Last administered on 02/04/20at 08:48; Start 02/03/20 at 09:00 Clopidogrel Bisulfate (Plavix) 75 mg DAILY PO Last administered on 02/04/20at 08:48; Start 02/03/20 at 09:00 Atorvastatin Calcium (Lipitor) 80 mg QHS PO Last administered on 02/03/20at 21:14; Start 02/02/20 at 21:00 Piperacillin Sod/ Tazobactam Sod 2.25 gm/Sodium Chloride 50 ml @ 100 mls/hr Q8HRS IV Last administered on 02/04/20at 06:11; Start 02/02/20 at 22:00 Vancomycin HCl (Vancomycin Random Level) 1 each 1X ONCE MC Last administered on 02/04/20at 06:00; Start 02/04/20 at 06:00; Stop 02/04/20 at 06:01; Status DC Info (PHARMACY MONITORING -- do not chart) 1 each PRN DAILY PRN MC SEE COMMENTS; Start 02/03/20 at 13:15 Potassium Chloride/Water 100 ml @ 100 mls/hr 1X ONCE IV Last administered on 02/04/20at 07:58; Start 02/04/20 at 07:30; Stop 02/04/20 at 08:29; Status DC Vancomycin HCl (Vancomycin Random Level) 1 each 1X ONCE MC ; Start 02/06/20 at 06:00; Stop 02/06/20 at 06:01 Lactobacillus Rhamnosus (Culturelle) 1 cap BID PO Last administered on 02/04/20at 08:48; Start 02/04/20 at 09:00 Active Scripts Active Reported Bactrim Ds Tablet (Sulfamethoxazole/Trimethoprim) 1 Each Tablet 1 Tab PO BID 10 Days [place] 5-325 Tablet (Acetaminophen/Hydrocodone Bitart) 1 Each Tablet 1 Tab PO Q4- 6HRS Amlodipine Besylate 5 Mg Tablet 5 Mg PO DAILY Aspir-Low (Aspirin) 81 Mg Tablet.dr 81 Mg PO DAILY Renvela (Sevelamer Carbonate) 800 Mg Tablet 800 Mg PO TIDWMEALS Atorvastatin Calcium 80 Mg Tablet 80 Mg PO QHS Gabapentin (Gabapentin) 100 Mg Capsule 100 Mg PO TID Losartan Potassium (Losartan Potassium) 25 Mg Tablet 25 Mg PO DAILY Metoprolol Succinate ( Xl ) (Metoprolol Succinate) 25 Mg Tab.er.24h 25 Mg PO BID Clopidogrel (Clopidogrel Bisulfate) 75 Mg Tablet 75 Mg PO DAILY Vitals/I & O Vital Sign - Last 24 Hours 02/03/20 02/03/20 02/03/20 02/03/20 12:00 12:00 13:00 14:00 Temp 97.9 97.9 Pulse 62 62 59 Resp 17 16 37 B/P (MAP) 110/54 (72) 105/52 (69) 112/54 (73) Pulse Ox 100 100 100 O2 Delivery Room Air Nasal Cannula Room Air Room Air O2 Flow Rate 2.0 02/03/20 02/03/20 02/03/20 02/03/20 15:00 16:00 16:00 17:00 Temp 98.0 98.0 98.0 98.0 Pulse 62 69 68 Resp 22 28 20 B/P (MAP) 111/56 (74) 145/71 (95) 113/55 (74) Pulse Ox 100 97 100 O2 Delivery Room Air Nasal Cannula Room Air Room Air O2 Flow Rate 2.0 02/03/20 02/03/20 02/03/20 02/03/20 18:00 19:00 20:00 20:00 Pulse 76 62 68 Resp 38 22 20 B/P (MAP) 141/63 (89) 111/56 (74) 139/69 (92) Pulse Ox 99 100 100 O2 Delivery Room Air Room Air Room Air Room Air 02/03/20 02/03/20 02/03/20 02/04/20 21:00 22:00 23:00 00:00 Pulse 68 66 80 Resp 25 28 28 B/P (MAP) 131/65 (87) 151/85 (107) 133/66 (88) Pulse Ox 100 100 100 O2 Delivery Room Air Room Air Room Air Room Air 02/04/20 02/04/20 02/04/20 02/04/20 00:00 01:00 02:00 03:00 Temp 98.4 98.4 Pulse 82 56 62 61 Resp 19 19 16 22 B/P (MAP) 133/53 (79) 87/52 (64) 91/53 (66) 103/56 (72) Pulse Ox 100 100 100 100 O2 Delivery Room Air Room Air Room Air Room Air 02/04/20 02/04/20 02/04/20 02/04/20 04:00 04:00 05:00 06:00 Pulse 64 69 65 Resp 18 18 18 B/P (MAP) 103/57 (72) 94/49 (64) 94/55 (68) O2 Delivery Room Air Room Air Room Air Room Air 02/04/20 02/04/20 07:00 08:00 Pulse 77 Resp 18 B/P (MAP) 105/56 (72) O2 Delivery Room Air Room Air Intake and Output 02/03/20 02/03/20 02/04/20 15:00 23:00 07:00 Intake Total 50 ml 120 ml Output Total 0 ml 0 ml 0 ml Balance 50 ml 120 ml 0 ml Justicifation of Admission Dx: Justifications for Admission: Justification of Admission Dx: Yes Sepsis: Infection CALEB CROCKETT MD Feb 04, 2020 11:02
--- NOTE | 2020-02-04 13:40 | PDOC ---
PROGRESS NOTES Subjective Subjective SEEN IN FOLLOW UP OF ESRD. PATIENT IS PUI FOR COVID 19. DID NOT ENTER ROOM. Objective Objective Vital Signs Date Time Temp Pulse Resp B/P (MAP) Pulse Ox O2 Delivery O2 Flow Rate FiO2 02/04/20 12:00 98.0 60 22 114/72 (86) Room Air 98.0 02/04/20 03:00 100 02/03/20 16:00 2.0 Intake and Output 02/04/20 07:00 Intake Total 170 ml Output Total 0 ml Balance 170 ml Intake Oral 120 ml IV Total 50 ml Output Urine Total 0 ml # Bowel Movements 1 Physical Exam Physical Exam NO BEDSIDE EXAM Abdomen: Other Diagnosis RENAL FAILURE: ESRD Assessment Assessment Problems Medical Problems: (1) Septic shock Status: Acute Plan Plan of Care FOR CCP[facility] TONIGHT. SUPP K+ Comment Review of Relevant I have reviewed the following items sujatha (where applicable) has been applied. Labs Laboratory Tests Test 02/02/20 17:45 02/02/20 18:30 02/02/20 22:10 02/03/20 05:45 Coronavirus (PCR) Not detected (Not Detected) Lactic Acid Level 2.0 mmol/L (0.4-2.0) 1.2 mmol/L (0.4-2.0) Glucose (Fingerstick) 135 mg/dL (70-99) White Blood Count 14.3 x10^3/uL (4.0-11.0) Red Blood Count 2.96 x10^6/uL (3.50-5.40) Hemoglobin 9.5 g/dL (12.0-15.5) Hematocrit 29.2 % (36.0-47.0) Mean Corpuscular Volume 99 fL (79-100) Mean Corpuscular Hemoglobin 32 pg (25-35) Mean Corpuscular Hemoglobin Concent 33 g/dL (31-37) Red Cell Distribution Width 17.5 % (11.5-14.5) Platelet Count 205 x10^3/uL (140-400) Neutrophils (%) (Auto) 68 % (31-73) Lymphocytes (%) (Auto) 22 % (24-48) Monocytes (%) (Auto) 7 % (0-9) Eosinophils (%) (Auto) 1 % (0-3) Basophils (%) (Auto) 1 % (0-3) Neutrophils # (Auto) 9.7 x10^3/uL (1.8-7.7) Lymphocytes # (Auto) 3.2 x10^3/uL (1.0-4.8) Monocytes # (Auto) 1.0 x10^3/uL (0.0-1.1) Eosinophils # (Auto) 0.2 x10^3/uL (0.0-0.7) Basophils # (Auto) 0.1 x10^3/uL (0.0-0.2) Sodium Level 139 mmol/L (136-145) Potassium Level 3.5 mmol/L (3.5-5.1) Chloride Level 103 mmol/L (98-107) Carbon Dioxide Level 22 mmol/L (21-32) Anion Gap 14 (6-14) Blood Urea Nitrogen 34 mg/dL (7-20) Creatinine 5.9 mg/dL (0.6-1.0) Estimated GFR (Cockcroft-Gault) 7.2 Glucose Level 96 mg/dL (70-99) Calcium Level 7.0 mg/dL (8.5-10.1) Magnesium Level 2.2 mg/dL (1.8-2.4) Total Bilirubin 0.4 mg/dL (0.2-1.0) Direct Bilirubin 0.2 mg/dL (0.0-0.2) Aspartate Amino Transf (AST/SGOT) 23 U/L (15-37) Alanine Aminotransferase (ALT/SGPT) 12 U/L (14-59) Alkaline Phosphatase 75 U/L (46-116) Lactate Dehydrogenase 214 U/L (81-234) Troponin I Quantitative 0.268 ng/mL (0.000-0.055) Total Protein 5.1 g/dL (6.4-8.2) Albumin 1.4 g/dL (3.4-5.0) Test 02/03/20 08:30 02/03/20 12:24 02/03/20 18:00 02/04/20 06:00 Glucose (Fingerstick) 83 mg/dL (70-99) 90 mg/dL (70-99) 101 mg/dL (70-99) Sodium Level 139 mmol/L (136-145) Potassium Level 3.0 mmol/L (3.5-5.1) Chloride Level 102 mmol/L (98-107) Carbon Dioxide Level 22 mmol/L (21-32) Anion Gap 15 (6-14) Blood Urea Nitrogen 32 mg/dL (7-20) Creatinine 5.9 mg/dL (0.6-1.0) Estimated GFR (Cockcroft-Gault) 7.2 Glucose Level 96 mg/dL (70-99) Calcium Level 7.6 mg/dL (8.5-10.1) Magnesium Level 2.1 mg/dL (1.8-2.4) Troponin I Quantitative 0.153 ng/mL (0.000-0.055) Random Vancomycin Level 24.0 mcg/mL Test 02/04/20 07:33 02/04/20 12:04 Glucose (Fingerstick) 83 mg/dL (70-99) 93 mg/dL (70-99) Laboratory Tests Test 02/03/20 18:00 02/04/20 06:00 02/04/20 07:33 02/04/20 12:04 Glucose (Fingerstick) 101 mg/dL (70-99) 83 mg/dL (70-99) 93 mg/dL (70-99) Sodium Level 139 mmol/L (136-145) Potassium Level 3.0 mmol/L (3.5-5.1) Chloride Level 102 mmol/L (98-107) Carbon Dioxide Level 22 mmol/L (21-32) Anion Gap 15 (6-14) Blood Urea Nitrogen 32 mg/dL (7-20) Creatinine 5.9 mg/dL (0.6-1.0) Estimated GFR (Cockcroft-Gault) 7.2 Glucose Level 96 mg/dL (70-99) Calcium Level 7.6 mg/dL (8.5-10.1) Magnesium Level 2.1 mg/dL (1.8-2.4) Troponin I Quantitative 0.153 ng/mL (0.000-0.055) Random Vancomycin Level 24.0 mcg/mL Microbiology 02/02/20 Blood Culture - Preliminary, Resulted NO GROWTH AFTER 2 DAYS Medications Current Medications Sodium Chloride 500 ml @ 500 mls/hr 1X ONCE IV Last administered on 02/02/20at 13:15; Start 02/02/20 at 13:15; Stop 02/02/20 at 14:14; Status DC Piperacillin Sod/ Tazobactam Sod (Zosyn Per Pharmacy) 1 each PRN DAILY PRN MC SEE COMMENTS; Start 02/02/20 at 13:30; Status UNV Vancomycin HCl (Vanco Per Pharmacy) 1 each PRN DAILY PRN MC SEE COMMENTS; Start 02/02/20 at 13:30; Status UNV Piperacillin Sod/ Tazobactam Sod 2.25 gm/Sodium Chloride 50 ml @ 100 mls/hr 1X ONCE IV Last administered on 02/02/20at 13:50; Start 02/02/20 at 14:00; Stop 02/02/20 at 14:29; Status DC Vancomycin HCl 1.5 gm/Sodium Chloride 500 ml @ 250 mls/hr 1X ONCE IV Last administered on 02/02/20at 13:50; Start 02/02/20 at 14:30; Stop 02/02/20 at 16:29; Status DC Potassium Chloride/Water 100 ml @ 50 mls/hr Q1H IV Last administered on 02/02/20at 19:24; Start 02/02/20 at 15:00; Stop 02/02/20 at 16:59; Status DC Norepinephrine Bitartrate 8 mg/ Dextrose 258 ml @ 12.926 mls/ hr 1X ONCE IV ; Start 02/02/20 at 14:45; Stop 02/03/20 at 10:42; Status DC Sodium Chloride 500 ml @ 500 mls/hr 1X ONCE IV Last administered on 02/02/20at 13:50; Start 02/02/20 at 14:45; Stop 02/02/20 at 15:44; Status DC Sodium Chloride 500 ml @ 500 mls/hr 1X ONCE IV Last administered on 02/02/20at 16:29; Start 02/02/20 at 14:45; Stop 02/02/20 at 15:44; Status DC Magnesium Sulfate 50 ml @ 25 mls/hr 1X ONCE IV Last administered on 02/02/20at 17:07; Start 02/02/20 at 15:30; Stop 02/02/20 at 17:29; Status DC Acetaminophen (Tylenol) 650 mg PRN Q6HRS PRN PO Headaches, Temp > 101.5' Last administered on 02/03/20at 17:55; Start 02/02/20 at 15:45 Famotidine (Pepcid Vial) 20 mg QHS IVP Last administered on 02/03/20at 21:14; Start 02/02/20 at 21:00 Info (Icu Electrolyte Protocol) 1 ea DAILY MC Last administered on 02/04/20at 08:46; Start 02/03/20 at 09:00 Heparin Sodium (Porcine) (Heparin Sodium) 5,000 unit Q12HR SQ Last administered on 02/04/20at 08:50; Start 02/02/20 at 21:00 Sodium Chloride (Normal Saline Flush) 3 ml QSHIFT PRN IV AFTER MEDS AND BLOOD DRAWS; Start 02/02/20 at 15:45 Senna/Docusate Sodium (Senna Plus) 1 tab BID PO Last administered on 02/03/20at 21:14; Start 02/02/20 at 21:00 Potassium Chloride/Sodium Chloride 1,000 ml @ 100 mls/hr 1X ONCE IV Last administered on 02/02/20at 19:23; Start 02/02/20 at 18:00; Stop 02/03/20 at 03:59; Status DC Piperacillin Sod/ Tazobactam Sod (Zosyn Per Pharmacy) 1 each PRN DAILY PRN MC SEE COMMENTS; Start 02/02/20 at 16:00 Vancomycin HCl (Vanco Per Pharmacy) 1 each PRN DAILY PRN MC SEE COMMENTS Last administered on 02/04/20at 07:50; Start 02/02/20 at 16:00 Insulin Human Lispro (HumaLOG) 0-7 UNITS TIDWMEALS SQ ; Start 02/02/20 at 17:00 Dextrose (Dextrose 50%-Water Syringe) 12.5 gm PRN Q15MIN PRN IV SEE COMMENTS; Start 02/02/20 at 16:00 Aspirin (Ecotrin) 81 mg DAILY PO Last administered on 02/04/20at 08:48; Start 02/03/20 at 09:00 Clopidogrel Bisulfate (Plavix) 75 mg DAILY PO Last administered on 02/04/20at 08:48; Start 02/03/20 at 09:00 Atorvastatin Calcium (Lipitor) 80 mg QHS PO Last administered on 02/03/20at 21:14; Start 02/02/20 at 21:00 Piperacillin Sod/ Tazobactam Sod 2.25 gm/Sodium Chloride 50 ml @ 100 mls/hr Q8HRS IV Last administered on 02/04/20at 06:11; Start 02/02/20 at 22:00 Vancomycin HCl (Vancomycin Random Level) 1 each 1X ONCE MC Last administered on 02/04/20at 06:00; Start 02/04/20 at 06:00; Stop 02/04/20 at 06:01; Status DC Info (PHARMACY MONITORING -- do not chart) 1 each PRN DAILY PRN MC SEE COMMENTS; Start 02/03/20 at 13:15 Potassium Chloride/Water 100 ml @ 100 mls/hr 1X ONCE IV Last administered on 02/04/20at 07:58; Start 02/04/20 at 07:30; Stop 02/04/20 at 08:29; Status DC Vancomycin HCl (Vancomycin Random Level) 1 each 1X ONCE MC ; Start 02/06/20 at 06:00; Stop 02/06/20 at 06:01 Lactobacillus Rhamnosus (Culturelle) 1 cap BID PO Last administered on 02/04/20at 08:48; Start 02/04/20 at 09:00 Active Scripts Active Reported Bactrim Ds Tablet (Sulfamethoxazole/Trimethoprim) 1 Each Tablet 1 Tab PO BID 10 Days [place] 5-325 Tablet (Acetaminophen/Hydrocodone Bitart) 1 Each Tablet 1 Tab PO Q4- 6HRS Amlodipine Besylate 5 Mg Tablet 5 Mg PO DAILY Aspir-Low (Aspirin) 81 Mg Tablet.dr 81 Mg PO DAILY Renvela (Sevelamer Carbonate) 800 Mg Tablet 800 Mg PO TIDWMEALS Atorvastatin Calcium 80 Mg Tablet 80 Mg PO QHS Gabapentin (Gabapentin) 100 Mg Capsule 100 Mg PO TID Losartan Potassium (Losartan Potassium) 25 Mg Tablet 25 Mg PO DAILY Metoprolol Succinate ( Xl ) (Metoprolol Succinate) 25 Mg Tab.er.24h 25 Mg PO BID Clopidogrel (Clopidogrel Bisulfate) 75 Mg Tablet 75 Mg PO DAILY Vitals/I & O Vital Sign - Last 24 Hours 02/03/20 02/03/20 02/03/20 02/03/20 14:00 15:00 16:00 16:00 Temp 98.0 98.0 Pulse 59 62 69 Resp 37 22 28 B/P (MAP) 112/54 (73) 111/56 (74) 145/71 (95) Pulse Ox 100 100 97 O2 Delivery Room Air Room Air Nasal Cannula Room Air O2 Flow Rate 2.0 02/03/20 02/03/20 02/03/20 02/03/20 17:00 18:00 19:00 20:00 Temp 98.0 98.0 Pulse 68 76 62 Resp 20 38 22 B/P (MAP) 113/55 (74) 141/63 (89) 111/56 (74) Pulse Ox 100 99 100 O2 Delivery Room Air Room Air Room Air Room Air 02/03/20 02/03/20 02/03/20 02/03/20 20:00 21:00 22:00 23:00 Pulse 68 68 66 80 Resp 20 25 28 28 B/P (MAP) 139/69 (92) 131/65 (87) 151/85 (107) 133/66 (88) Pulse Ox 100 100 100 100 O2 Delivery Room Air Room Air Room Air Room Air 02/04/20 02/04/20 02/04/20 02/04/20 00:00 00:00 01:00 02:00 Pulse 82 56 62 Resp 19 19 16 B/P (MAP) 133/53 (79) 87/52 (64) 91/53 (66) Pulse Ox 100 100 100 O2 Delivery Room Air Room Air Room Air Room Air 02/04/20 02/04/20 02/04/20 02/04/20 03:00 04:00 04:00 05:00 Temp 98.4 98.4 Pulse 61 64 69 Resp 22 18 18 B/P (MAP) 103/56 (72) 103/57 (72) 94/49 (64) Pulse Ox 100 O2 Delivery Room Air Room Air Room Air Room Air 02/04/20 02/04/20 02/04/20 02/04/20 06:00 07:00 08:00 12:00 Temp 98.0 98.0 Pulse 65 77 60 Resp 18 18 22 B/P (MAP) 94/55 (68) 105/56 (72) 114/72 (86) O2 Delivery Room Air Room Air Room Air Room Air Intake and Output 02/03/20 02/03/20 02/04/20 15:00 23:00 07:00 Intake Total 50 ml 120 ml Output Total 0 ml 0 ml 0 ml Balance 50 ml 120 ml 0 ml Justicifation of Admission Dx: Justifications for Admission: Justification of Admission Dx: Yes Sepsis: Infection RUTH SELF MD Feb 04, 2020 13:40
[2020-02-04] MEDS: ACETAMINOPHEN 325 MG TABLET. PO PRN ×2 (16:45→23:24)
[2020-02-04] MEDS: FAMOTIDINE 20 MG/2 ML VIAL IVP SCH (20:46)
[2020-02-04] MEDS: ATORVASTATIN CALCIUM 40 MG TABLET. PO SCH (20:47)
[2020-02-05] VITALS (7 sets, daily range): BP systolic 99–131; BP diastolic 39–64
[2020-02-05] MEDS: PIPERACILLIN/TAZOBACTAM 2.25 GM in IV NORMAL SALINE 50ML 50 ML IV SCH ×3 (05:42→21:12)
[2020-02-05] MEDS: INSULIN LISPRO 300 UNITS/3 ML VIAL. SQ SCH ×3 (08:00→17:00)
--- NOTE | 2020-02-05 08:12 | NUR ---
Pt was transferred to 206 by 800 am. Attempted to get hold of daughter Radha to inform of pt's transfer but ro no avail, phone just ringing.
[2020-02-05] MEDS: ELECTROLYTE (ICU) PROTOCOL. MC SCH (08:43)
[2020-02-05] MEDS: LACTOBACILLUS RHAMNOSUS GG 1 CAPSULE. PO SCH ×2 (08:52→21:13)
[2020-02-05] MEDS: ASPIRIN ENTERIC COATED 81 MG TABLET.DR. PO SCH (08:52)
[2020-02-05] MEDS: SENNOSIDES/DOCUSATE 8.6/50MG TABLET. PO SCH ×2 (08:52→21:00)
[2020-02-05] MEDS: CLOPIDOGREL BISULFATE 75 MG TABLET PO SCH (08:52)
[2020-02-05] MEDS: HEPARIN for SUB-Q USE 5,000 UNIT/ML VIAL. SQ SCH ×2 (08:59→21:13)
[2020-02-05] MEDS: ACETAMINOPHEN 325 MG TABLET. PO PRN ×2 (09:33→17:36)
--- NOTE | 2020-02-05 10:53 | PDOC ---
ALECIA PALOMARES APRN 02/05/20 1052: CARDIO Progress Notes Date and Time Date of Service 02/05/20 Time of Evaluation 1050 Subjective Subjective: No Chest Pain, No shortness of breath, No Palpitations Vitals Vitals Vital Signs Date Time Temp Pulse Resp B/P (MAP) Pulse Ox O2 Delivery O2 Flow Rate FiO2 02/05/20 08:20 Room Air 02/05/20 07:00 98.3 65 23 115/59 (77) 98 98.3 Weight Weight [ ] Input and Output Intake and Output Intake and Output 02/05/20 07:00 Intake Total 170 ml Output Total 0 ml Balance 170 ml Intake Oral 120 ml IV Total 50 ml Output Urine Total 0 ml # Bowel Movements 8 Laboratory Labs Laboratory Tests Test 02/04/20 12:04 02/04/20 16:48 02/04/20 21:39 02/05/20 08:06 Glucose (Fingerstick) 93 mg/dL (70-99) 94 mg/dL (70-99) 112 mg/dL (70-99) 88 mg/dL (70-99) Microbiology Micro Microbiology 02/02/20 Blood Culture - Preliminary, Resulted NO GROWTH AFTER 2 DAYS Physical Exam HEENT: Neck Supple W Full Motion Chest: Symmetric LUNGS: Clear to Auscultation Heart: RRR Extremities: No Edema, Other (bilateral AKA) Neurology: alert, oriented, follow commands Assessment Assessment 1. Leukocytosis, lactic acidosis. ? sepsis. BC negative so far 2. Hypotension; improved 3. ESRD on HD 4. Mild troponin elevation; peak 0.26. EKG without significant acute changes. CP free. Most probably type II, demand ischemia. 5. Diabetes, II 6. History of a CVA. 7. Hypokalemia, recurrent Recommendations Replace K Echo to assess LV systolic function Consider outpatient ischemic evaluation Supportive care Justicifation of Admission Dx: Justifications for Admission: Justification of Admission Dx: Yes Sepsis: Infection CALEB CROCKETT MD 02/05/20 1656: CARDIO Progress Notes Assessment Assessment Patient seen and examined Leukocytosis, lactic acidosis. BC negative so far Hypotension; improved ESRD on HD Mild troponin elevation; peak 0.26. EKG without significant acute changes. CP free. Most probably type II, demand ischemia. Echo pending ALECIA PALOMARES APRN Feb 05, 2020 10:52 CALEB CROCKETT MD Feb 05, 2020 16:56
[2020-02-05 11:31] LABS: CALCIUM 7.6 mg/dL (8.5-10.1); CREATININE 6.1 mg/dL (0.6-1.0); GFR 6.9
[2020-02-05 11:33] LABS: BASO % 1 % (0-3); EOS # 0.3 x10^3/uL (0.0-0.7); EOS % 4 % (0-3); HEMOGLOBIN 10.7 g/dL (12.0-15.5); LYMPH # 1.9 x10^3/uL (1.0-4.8); LYMPH % 27 % (24-48); MEAN CORPUSCULAR HEMOGLOBIN 32 pg (25-35); MEAN CORPUSCULAR HGB CONC 33 g/dL (31-37); MEAN CORPUSCULAR VOLUME 99 fL (79-100); MONO # 0.5 x10^3/uL (0.0-1.1); MONO % 7 % (0-9); NEUT # 4.3 x10^3/uL (1.8-7.7); NEUT % 61 % (31-73); PLATELET COUNT 170 x10^3/uL (140-400); RED BLOOD COUNT 3.33 x10^6/uL (3.50-5.40); RED CELL DISTRIBUTION WIDTH 17.9 % (11.5-14.5)
[2020-02-05 11:37] LABS: POTASSIUM 2.9 mmol/L (3.5-5.1)
[2020-02-05] MEDS ORDERED: POTASSIUM CHLORIDE 20 MEQ TABLET.ER. PO ONE (12:15)
--- NOTE | 2020-02-05 12:17 | NUR ---
SS following for discharge planning. SS reviewed pt chart and discussed with pt RN. Pt is from home and is currently on room air. Pt on IV Zosyn. COVID19 negative. SS will continue to follow for discharge planning.
--- NOTE | 2020-02-05 13:41 | PDOC ---
[facility] [facility] PROGRESS NOTE Chief Complaint Chief Complaint Septic Shock, unclear source: broad spectrum abx for now, continue blood cultures. covid negative Sacral Decub Ulcer stage 1 POA: wound care consulted lactic acidosis: lactate improved Hypokalemia: replete as needed HypoMagnesemia: replete as needed ESRD on PD: nephro consult for PD Leukocytosis: trend CBC Nausea and Vomiting: advance diet as tolerated Elevated Trop: likely demand ischemia; apprec cards Elevated BNP: echo pending Hx of CVA DVT PPX GI PPX diet: CLD FULL CODE okay to transfer to floor bed. History of Present Illness History of Present Illness 02/05/2020 Patient now transferred out of ICU to telemetry Discussed with RN Chart reviewed Vitals/I&O Vitals/I&O: Vital Signs Date Time Temp Pulse Resp B/P (MAP) Pulse Ox O2 Delivery O2 Flow Rate FiO2 02/05/20 10:59 98.0 64 23 117/58 (77) 94 Room Air 98.0 I & O 02/04/20 02/04/20 02/05/20 15:00 23:00 07:00 Intake Total 170 ml 0 ml Output Total 0 ml 0 ml 0 ml Balance 0 ml 170 ml 0 ml Physical Exam General: No acute distress Heart: Regular rate Lungs: Clear Abdomen: Other Extremities: No clubbing Skin: No rashes Labs Labs: Laboratory Tests Test 02/04/20 16:48 02/04/20 21:39 02/05/20 08:06 02/05/20 10:26 Glucose (Fingerstick) 94 mg/dL (70-99) 112 mg/dL (70-99) 88 mg/dL (70-99) White Blood Count 7.0 x10^3/uL (4.0-11.0) Red Blood Count 3.33 x10^6/uL (3.50-5.40) Hemoglobin 10.7 g/dL (12.0-15.5) Hematocrit 33.0 % (36.0-47.0) Mean Corpuscular Volume 99 fL (79-100) Mean Corpuscular Hemoglobin 32 pg (25-35) Mean Corpuscular Hemoglobin Concent 33 g/dL (31-37) Red Cell Distribution Width 17.9 % (11.5-14.5) Platelet Count 170 x10^3/uL (140-400) Neutrophils (%) (Auto) 61 % (31-73) Lymphocytes (%) (Auto) 27 % (24-48) Monocytes (%) (Auto) 7 % (0-9) Eosinophils (%) (Auto) 4 % (0-3) Basophils (%) (Auto) 1 % (0-3) Neutrophils # (Auto) 4.3 x10^3/uL (1.8-7.7) Lymphocytes # (Auto) 1.9 x10^3/uL (1.0-4.8) Monocytes # (Auto) 0.5 x10^3/uL (0.0-1.1) Eosinophils # (Auto) 0.3 x10^3/uL (0.0-0.7) Basophils # (Auto) 0.0 x10^3/uL (0.0-0.2) Sodium Level 139 mmol/L (136-145) Potassium Level 2.9 mmol/L (3.5-5.1) Chloride Level 101 mmol/L (98-107) Carbon Dioxide Level 24 mmol/L (21-32) Anion Gap 14 (6-14) Blood Urea Nitrogen 31 mg/dL (7-20) Creatinine 6.1 mg/dL (0.6-1.0) Estimated GFR (Cockcroft-Gault) 6.9 Glucose Level 108 mg/dL (70-99) Calcium Level 7.6 mg/dL (8.5-10.1) Magnesium Level 2.0 mg/dL (1.8-2.4) Test 02/05/20 11:36 Glucose (Fingerstick) 107 mg/dL (70-99) Assessment and Plan Assessmemt and Plan Problems Medical Problems: (1) Septic shock Status: Acute Septic Shock, unclear source: broad spectrum abx for now, continue blood cultures. covid negative transfered to telemetry Sacral Decub Ulcer stage 1 POA: wound care consulted lactic acidosis: lactate improved Hypokalemia: replete as needed HypoMagnesemia: replete as needed ESRD on PD: nephro consult for PD Leukocytosis: trend CBC Nausea and Vomiting: advance diet as tolerated Elevated Trop: likely demand ischemia; apprec cards Elevated BNP: echo pending Hx of CVA DVT PPX GI PPX diet: CLD FULL CODE Trend labs Home meds Appreciate subspecialist input Comment Review of Relevant I have reviewed the following items sujatha (where applicable) has been applied. Medications: Current Medications Medications (Trade) Dose Ordered Sig/Juanito Route PRN Reason Start Time Stop Time Status Last Admin Dose Admin Potassium Chloride (Klor-Con) 40 meq 1X ONCE PO 02/05/20 12:15 02/05/20 12:22 DC 02/05/20 12:44 Justicifation of Admission Dx: Justifications for Admission: Justification of Admission Dx: Yes Sepsis: Infection MONSTER COWAN III DO Feb 05, 2020 13:41
--- NOTE | 2020-02-05 14:53 | PDOC ---
Renal-Progress Notes Subjective Notes Notes FEELS BLOATED History of Present Illness Hx of present illness STABLE Vitals Vitals Vital Signs Date Time Temp Pulse Resp B/P (MAP) Pulse Ox O2 Delivery O2 Flow Rate FiO2 02/05/20 10:59 98.0 64 23 117/58 (77) 94 Room Air 98.0 Weight Weight [ ] I.O. Intake and Output Intake and Output 02/05/20 07:00 Intake Total 170 ml Output Total 0 ml Balance 170 ml Intake Oral 120 ml IV Total 50 ml Output Urine Total 0 ml # Bowel Movements 8 Labs Labs Laboratory Tests Test 02/04/20 16:48 02/04/20 21:39 02/05/20 08:06 02/05/20 10:26 Glucose (Fingerstick) 94 mg/dL (70-99) 112 mg/dL (70-99) 88 mg/dL (70-99) White Blood Count 7.0 x10^3/uL (4.0-11.0) Red Blood Count 3.33 x10^6/uL (3.50-5.40) Hemoglobin 10.7 g/dL (12.0-15.5) Hematocrit 33.0 % (36.0-47.0) Mean Corpuscular Volume 99 fL (79-100) Mean Corpuscular Hemoglobin 32 pg (25-35) Mean Corpuscular Hemoglobin Concent 33 g/dL (31-37) Red Cell Distribution Width 17.9 % (11.5-14.5) Platelet Count 170 x10^3/uL (140-400) Neutrophils (%) (Auto) 61 % (31-73) Lymphocytes (%) (Auto) 27 % (24-48) Monocytes (%) (Auto) 7 % (0-9) Eosinophils (%) (Auto) 4 % (0-3) Basophils (%) (Auto) 1 % (0-3) Neutrophils # (Auto) 4.3 x10^3/uL (1.8-7.7) Lymphocytes # (Auto) 1.9 x10^3/uL (1.0-4.8) Monocytes # (Auto) 0.5 x10^3/uL (0.0-1.1) Eosinophils # (Auto) 0.3 x10^3/uL (0.0-0.7) Basophils # (Auto) 0.0 x10^3/uL (0.0-0.2) Sodium Level 139 mmol/L (136-145) Potassium Level 2.9 mmol/L (3.5-5.1) Chloride Level 101 mmol/L (98-107) Carbon Dioxide Level 24 mmol/L (21-32) Anion Gap 14 (6-14) Blood Urea Nitrogen 31 mg/dL (7-20) Creatinine 6.1 mg/dL (0.6-1.0) Estimated GFR (Cockcroft-Gault) 6.9 Glucose Level 108 mg/dL (70-99) Calcium Level 7.6 mg/dL (8.5-10.1) Magnesium Level 2.0 mg/dL (1.8-2.4) Test 02/05/20 11:36 Glucose (Fingerstick) 107 mg/dL (70-99) Micro Micro Microbiology 02/02/20 Blood Culture - Preliminary, Resulted NO GROWTH AFTER 3 DAYS Review of Systems Constitutional: yes: weakness, alert, oriented Ears/Nose/Throat: Yes: no symptom reported Eyes: Yes: no symptom reported Pulmonary: Yes dyspnea Cardiovascular: Yes no symptom reported Gastrointestional: Yes: constipation Genitourinary: Yes: no symptom reported Musculoskeletal: Yes: no symptom reported Skin: Yes no symptom reported Psychiatric/Neurological: Yes: no symptom reported Endocrine: Yes: no symptom reported Physical Exam General Appearance: no apparent distress Skin: warm Respiratory: decreased breath sounds Heart: S1S2 Abdomen: soft, bowel sounds present Genitourinary: bladder flat Neurology: alert, oriented, follow commands Assessment Assessment IMP SEPSIS SACRAL DECUB HYPOKALEMIA LOW MAG-REPLETED ESRD HYPERVOLEMIA PLAN CONT PD WILL INCREASE UF WITH COMBINATION OF 1.25 AND 2.5% DIANEAL CONT ANTIBIOTICS REPLACE K AND MAG NEEDED WILL FOLLOW MARICEL BURROUGHS MD Feb 05, 2020 14:53
--- NOTE | 2020-02-05 16:25 | CARD ---
MR#: [id number] Date of Study: 02/05/2020 Ordering Physician: GELY HOLDER, Referring Physician: GELY HOLDER Tech: Xenia Guerrero [facility] APPROVED REPORT EXAM: Two-dimensional and M-mode echocardiogram with Doppler and color Doppler. Other Information Quality : Fair Technically limited study due to supine only position INDICATION Hypotension 2D DIMENSIONS Left Atrium(2D)2.1 (1.6-4.0cm)IVSd0.9 (0.7-1.1cm) Aortic Root(2D)2.9 (2.0-3.7cm)LVDd3.9 (3.9-5.9cm) LVOT Diameter1.9 (1.8-2.4cm)PWd0.9 (0.7-1.1cm) LVDs3.2 (2.5-4.0cm)FS (%) 25.0 % SV23.9 mlLVEF(%)50.0 (>50%) Aortic Valve AoV Peak Melo.106.7cm/sAoV VTI20.1cm AO Peak GR.4.5mmHgLVOT VTI 17.52cm AO Mean GR.3mmHgAVA (VTI)2.48cm2 Mitral Valve MV E Ehdkbqck87.1cm/sMV DECEL YMQU495vs MV A Tuhndorj53.7cm/sE/A Ratio0.7 TDI Lateral E' P. V5.41cm/sMedial E' P. V4.76cm/s E/Lateral E'11.1E/Medial E'12.6 Pulmonary Vein S1 Ebexduxo86.3cm/sS2 Enjrjeum05.26cm/s D2 Leevfuue01.3cm/s LEFT VENTRICLE The left ventricle is normal size. There is normal left ventricular wall thickness. Left ventricle sy stolic function is low normal. The Ejection Fraction is 50-55%. Septal motion consistent with conduct ion abnormality. Transmitral Doppler flow pattern is Grade I-abnormal relaxation pattern. RIGHT VENTRICLE The right ventricle is normal size. The right ventricular systolic function is normal. ATRIA The left atrium size is normal. The right atrium size is normal. The interatrial septum is intact wit h no evidence for an atrial septal defect or patent foramen ovale as noted on 2-D or Doppler imaging. AORTIC VALVE The aortic valve is calcified but opens well. Doppler and Color Flow revealed no significant aortic r egurgitation. There is no significant aortic valvular stenosis. MITRAL VALVE The mitral valve is calcified but opens well. There is no evidence of mitral valve prolapse. There is no mitral valve stenosis. Doppler and Color Flow revealed trace mitral valve regurgitation. TRICUSPID VALVE The tricuspid valve is normal in structure and function. Doppler and Color Flow revealed no tricuspid valve regurgitation noted. There is no tricuspid valve stenosis. PULMONIC VALVE The pulmonic valve is not well visualized. Doppler and Color Flow revealed no pulmonic valvular regur gitation. There is no pulmonic valvular stenosis. GREAT VESSELS The aortic root is normal in size. The ascending aorta is normal in size. The IVC is normal in size a nd collapses >50% with inspiration. PERICARDIAL EFFUSION There is no evidence of significant pericardial effusion. Critical Notification Critical Value: No <Conclusion> The left ventricle is normal size. Left ventricle systolic function is low normal. The Ejection Fraction is 50-55%. Septal motion consistent with conduction abnormality. There is no significant aortic valvular stenosis. Doppler and Color Flow revealed no significant aortic regurgitation. Doppler and Color Flow revealed trace mitral valve regurgitation. Doppler and Color Flow revealed no tricuspid valve regurgitation noted. Signed by : Heath Lemons MD Electronically Approved : 02/05/2020 16:25:12
--- NOTE | 2020-02-05 17:07 | NUR ---
called consult to dr queen at this time
--- NOTE | 2020-02-05 17:33 | PDOC ---
PULMONARY PROGRESS NOTES Subjective denies sob cough, on ra Vitals Vital Signs Date Time Temp Pulse Resp B/P (MAP) Pulse Ox O2 Delivery O2 Flow Rate FiO2 02/05/20 15:00 98.0 59 23 120/57 (78) 100 Room Air 98.0 ROS: No Nausea, No Chest Pain, No Abdominal Pain General: Alert Lungs: Clear Cardiovascular: S1, S2 Abdomen: Soft, Non-tender Neuro Exam: Alert Extremities: No Edema Skin: Warm Labs Laboratory Tests Test 02/03/20 18:00 02/04/20 06:00 02/04/20 07:33 02/04/20 12:04 Glucose (Fingerstick) 101 mg/dL (70-99) 83 mg/dL (70-99) 93 mg/dL (70-99) Sodium Level 139 mmol/L (136-145) Potassium Level 3.0 mmol/L (3.5-5.1) Chloride Level 102 mmol/L (98-107) Carbon Dioxide Level 22 mmol/L (21-32) Anion Gap 15 (6-14) Blood Urea Nitrogen 32 mg/dL (-20) Creatinine 5.9 mg/dL (0.6-1.0) Estimated GFR (Cockcroft-Gault) 7.2 Glucose Level 96 mg/dL (70-99) Calcium Level 7.6 mg/dL (8.5-10.1) Magnesium Level 2.1 mg/dL (1.8-2.4) Troponin I Quantitative 0.153 ng/mL (0.000-0.055) Random Vancomycin Level 24.0 mcg/mL Test 02/04/20 16:48 02/04/20 21:39 02/05/20 08:06 02/05/20 10:26 Glucose (Fingerstick) 94 mg/dL (70-99) 112 mg/dL (70-99) 88 mg/dL (70-99) White Blood Count 7.0 x10^3/uL (4.0-11.0) Red Blood Count 3.33 x10^6/uL (3.50-5.40) Hemoglobin 10.7 g/dL (12.0-15.5) Hematocrit 33.0 % (36.0-47.0) Mean Corpuscular Volume 99 fL (79-100) Mean Corpuscular Hemoglobin 32 pg (25-35) Mean Corpuscular Hemoglobin Concent 33 g/dL (31-37) Red Cell Distribution Width 17.9 % (11.5-14.5) Platelet Count 170 x10^3/uL (140-400) Neutrophils (%) (Auto) 61 % (31-73) Lymphocytes (%) (Auto) 27 % (24-48) Monocytes (%) (Auto) 7 % (0-9) Eosinophils (%) (Auto) 4 % (0-3) Basophils (%) (Auto) 1 % (0-3) Neutrophils # (Auto) 4.3 x10^3/uL (1.8-7.7) Lymphocytes # (Auto) 1.9 x10^3/uL (1.0-4.8) Monocytes # (Auto) 0.5 x10^3/uL (0.0-1.1) Eosinophils # (Auto) 0.3 x10^3/uL (0.0-0.7) Basophils # (Auto) 0.0 x10^3/uL (0.0-0.2) Sodium Level 139 mmol/L (136-145) Potassium Level 2.9 mmol/L (3.5-5.1) Chloride Level 101 mmol/L (98-107) Carbon Dioxide Level 24 mmol/L (21-32) Anion Gap 14 (6-14) Blood Urea Nitrogen 31 mg/dL (7-20) Creatinine 6.1 mg/dL (0.6-1.0) Estimated GFR (Cockcroft-Gault) 6.9 Glucose Level 108 mg/dL (70-99) Calcium Level 7.6 mg/dL (8.5-10.1) Magnesium Level 2.0 mg/dL (1.8-2.4) Test 02/05/20 11:36 02/05/20 17:01 Glucose (Fingerstick) 107 mg/dL (70-99) 74 mg/dL (70-99) Laboratory Tests Test 02/04/20 21:39 02/05/20 08:06 02/05/20 10:26 02/05/20 11:36 Glucose (Fingerstick) 112 mg/dL (70-99) 88 mg/dL (70-99) 107 mg/dL (70-99) White Blood Count 7.0 x10^3/uL (4.0-11.0) Red Blood Count 3.33 x10^6/uL (3.50-5.40) Hemoglobin 10.7 g/dL (12.0-15.5) Hematocrit 33.0 % (36.0-47.0) Mean Corpuscular Volume 99 fL (79-100) Mean Corpuscular Hemoglobin 32 pg (25-35) Mean Corpuscular Hemoglobin Concent 33 g/dL (31-37) Red Cell Distribution Width 17.9 % (11.5-14.5) Platelet Count 170 x10^3/uL (140-400) Neutrophils (%) (Auto) 61 % (31-73) Lymphocytes (%) (Auto) 27 % (24-48) Monocytes (%) (Auto) 7 % (0-9) Eosinophils (%) (Auto) 4 % (0-3) Basophils (%) (Auto) 1 % (0-3) Neutrophils # (Auto) 4.3 x10^3/uL (1.8-7.7) Lymphocytes # (Auto) 1.9 x10^3/uL (1.0-4.8) Monocytes # (Auto) 0.5 x10^3/uL (0.0-1.1) Eosinophils # (Auto) 0.3 x10^3/uL (0.0-0.7) Basophils # (Auto) 0.0 x10^3/uL (0.0-0.2) Sodium Level 139 mmol/L (136-145) Potassium Level 2.9 mmol/L (3.5-5.1) Chloride Level 101 mmol/L (98-107) Carbon Dioxide Level 24 mmol/L (21-32) Anion Gap 14 (6-14) Blood Urea Nitrogen 31 mg/dL (7-20) Creatinine 6.1 mg/dL (0.6-1.0) Estimated GFR (Cockcroft-Gault) 6.9 Glucose Level 108 mg/dL (70-99) Calcium Level 7.6 mg/dL (8.5-10.1) Magnesium Level 2.0 mg/dL (1.8-2.4) Test 02/05/20 17:01 Glucose (Fingerstick) 74 mg/dL (70-99) Medications Active Scripts Medications Dose Route/Sig Max Daily Dose Days Date Category Bactrim Ds Tablet (Sulfamethoxazole/Trimethoprim) 1 Each Tablet 1 Tab PO BID 10 09/22/19 Reported [place] 5-325 Tablet (Acetaminophen/Hydrocodone Bitart) 1 Each Tablet 1 Tab PO Q4-6HRS 09/22/19 Reported Amlodipine Besylate 5 Mg Tablet 5 Mg PO DAILY 09/21/19 Reported Aspir-Low (Aspirin) 81 Mg Tablet.dr 81 Mg PO DAILY 09/21/19 Reported Renvela (Sevelamer Carbonate) 800 Mg Tablet 800 Mg PO TIDWMEALS 09/21/19 Reported Atorvastatin Calcium 80 Mg Tablet 80 Mg PO QHS 09/21/19 Reported Gabapentin (Gabapentin) 100 Mg Capsule 100 Mg PO TID 09/21/19 Reported Losartan Potassium (Losartan Potassium) 25 Mg Tablet 25 Mg PO DAILY 09/21/19 Reported Metoprolol Succinate ( Xl ) (Metoprolol Succinate) 25 Mg Tab.er.24h 25 Mg PO BID 09/21/19 Reported Clopidogrel (Clopidogrel Bisulfate) 75 Mg Tablet 75 Mg PO DAILY 09/21/19 Reported Impression . IMPRESSION: 1. Sepsis, source unknown. Her chest x-ray does not show infiltrate. She does not make urine. 2. End-stage renal disease, on peritoneal dialysis. 3. Electrolyte imbalance. 4. Hypokalemia, . 5. Weakness, ? etiology. 6. Peripheral vascular disease, status post bilateral above-knee amputation. 7. Diabetes mellitus. 8. History of hypertension. 9. COVID-19 neg Plan . Respiratory status compensated will sign off call if needed PADMA ZAPATA MD Feb 05, 2020 17:33
[2020-02-05] MEDS: FAMOTIDINE 20 MG/2 ML VIAL IVP SCH (21:12)
[2020-02-05] MEDS: ATORVASTATIN CALCIUM 40 MG TABLET. PO SCH (21:13)
[2020-02-05] MEDS: GABAPENTIN 100 MG CAPSULE. PO SCH (21:13)
[2020-02-06 03:00] VITALS: BP 112/61
[2020-02-06] MEDS: PIPERACILLIN/TAZOBACTAM 2.25 GM in IV NORMAL SALINE 50ML 50 ML IV SCH ×3 (05:02→21:35)
[2020-02-06 05:34] LABS: CALCIUM 7.4 mg/dL (8.5-10.1); GFR 7.1; MAGNESIUM 1.9 mg/dL (1.8-2.4); POTASSIUM 3.1 mmol/L (3.5-5.1)
[2020-02-06] MEDS ORDERED: VANCOMYCIN RANDOM LEVEL. MC ONE (06:00)
[2020-02-06 07:00] VITALS: BP 92/52
[2020-02-06] MEDS: INSULIN LISPRO 300 UNITS/3 ML VIAL. SQ SCH ×3 (08:00→16:38)
[2020-02-06] MEDS: LACTOBACILLUS RHAMNOSUS GG 1 CAPSULE. PO SCH ×2 (08:09→20:58)
[2020-02-06] MEDS: ASPIRIN ENTERIC COATED 81 MG TABLET.DR. PO SCH (08:09)
[2020-02-06] MEDS: SENNOSIDES/DOCUSATE 8.6/50MG TABLET. PO SCH ×2 (08:09→21:00)
[2020-02-06] MEDS: GABAPENTIN 100 MG CAPSULE. PO SCH ×3 (08:09→21:01)
[2020-02-06] MEDS: CLOPIDOGREL BISULFATE 75 MG TABLET PO SCH (08:09)
[2020-02-06] MEDS: HEPARIN for SUB-Q USE 5,000 UNIT/ML VIAL. SQ SCH ×2 (08:16→21:01)
[2020-02-06] MEDS: ACETAMINOPHEN 325 MG TABLET. PO PRN ×2 (08:18→20:57)
[2020-02-06] MEDS: VANCOMYCIN PER PHARMACY MC PRN ×2 (08:26→08:43)
[2020-02-06] MEDS: ELECTROLYTE (ICU) PROTOCOL. MC SCH (09:00)
--- NOTE | 2020-02-06 09:14 | EKG ---
[facility] [address] [place] [address] Test Date: 2020-02-02 Test Time: 13:07:37 Pat Name: ADELIA ANGLIN Department: Room: Gender: F Instrument Specialist: : 1955 Requested By: BUNNY RICHARDSON Order Number: [id number] Reading MD: Measurements Intervals [place] Rate: 89 P: 33 TN: 172 QRS: -25 QRSD: 76 T: 103 QT: 392 QTc: 478 Interpretive Statements SINUS RHYTHM LEFTWARD AXIS ST & T ABNORMALITY, CONSIDER HIGH LATERAL ISCHEMIA OR LEFT VENTRICULAR STRAIN INFERIOR ISCHEMIA OR LEFT VENTRICULAR STRAIN ABNORMAL ECG RI6.01 No previous ECG available for comparison
--- NOTE | 2020-02-06 09:31 | PDOC2 ---
GI CONSULT Reason For Consult: lack of taste, vomits when she eats HPI: HPI: 64 y/o female admitted 02/01 w/ weakness, hypotension, and possible sepsis. She tells me that since right AKA in 12/2019, she has not been able to eat much more than clear liquids. Has an odd feeling on her tongue. Has difficulty w/ food "with texture" - sometimes won't swallow, sometimes spits out, or sometimes swallows and then vomits. Unclear timing of vomiting. Denies dysphagia and odynophagia. I asked about heartburn - she says no but later says it depends on the food so she doesn't know. Denies dizziness, hematemesis, and abdominal pain. I asked about nausea - she's not really sure - she just doesn't feel well w/ eating. H/o constipation but stools are more liquidy now - she attributes this to only taking in liquids. No hematochezia or melena. Has lost weight. Tells me food tastes fine. No previous EGD or colonoscopy. No GB, liver, pancreas, or PUD history. On Plavix and ASA. PMH: PMH: CVA, HTN, DM, ESRD on PD, PVD w/ stent left toe amputation, right AKA, PD cath FH: Family History: No pertinent hx Social History: Smoke: Quit ALCOHOL: none Drugs: None ROS: GEN: Denies fevers, chills, sweats HEENT: Denies blurred vision, sore throat CV: Denies chest pain RESP: Denies shortness of air, cough GI: Per HPI : Denies hematuria, dysuria ENDO: +weight loss NEURO: Denies confusion, dizziness MSK: +weakness +stump pain SKIN: Denies jaundice, pruritus Vitals: Vitals: Vital Signs Date Time Temp Pulse Resp B/P (MAP) Pulse Ox O2 Delivery O2 Flow Rate FiO2 02/06/20 07:23 Room Air 02/06/20 07:00 98.1 71 21 92/52 (65) 90 98.1 Labs: Labs: Laboratory Tests Test 02/05/20 10:26 02/05/20 11:36 02/05/20 17:01 02/05/20 20:50 White Blood Count 7.0 x10^3/uL (4.0-11.0) Red Blood Count 3.33 x10^6/uL (3.50-5.40) Hemoglobin 10.7 g/dL (12.0-15.5) Hematocrit 33.0 % (36.0-47.0) Mean Corpuscular Volume 99 fL (79-100) Mean Corpuscular Hemoglobin 32 pg (25-35) Mean Corpuscular Hemoglobin Concent 33 g/dL (31-37) Red Cell Distribution Width 17.9 % (11.5-14.5) Platelet Count 170 x10^3/uL (140-400) Neutrophils (%) (Auto) 61 % (31-73) Lymphocytes (%) (Auto) 27 % (24-48) Monocytes (%) (Auto) 7 % (0-9) Eosinophils (%) (Auto) 4 % (0-3) Basophils (%) (Auto) 1 % (0-3) Neutrophils # (Auto) 4.3 x10^3/uL (1.8-7.7) Lymphocytes # (Auto) 1.9 x10^3/uL (1.0-4.8) Monocytes # (Auto) 0.5 x10^3/uL (0.0-1.1) Eosinophils # (Auto) 0.3 x10^3/uL (0.0-0.7) Basophils # (Auto) 0.0 x10^3/uL (0.0-0.2) Sodium Level 139 mmol/L (136-145) Potassium Level 2.9 mmol/L (3.5-5.1) Chloride Level 101 mmol/L (98-107) Carbon Dioxide Level 24 mmol/L (21-32) Anion Gap 14 (6-14) Blood Urea Nitrogen 31 mg/dL (7-20) Creatinine 6.1 mg/dL (0.6-1.0) Estimated GFR (Cockcroft-Gault) 6.9 Glucose Level 108 mg/dL (70-99) Calcium Level 7.6 mg/dL (8.5-10.1) Magnesium Level 2.0 mg/dL (1.8-2.4) Glucose (Fingerstick) 107 mg/dL (70-99) 74 mg/dL (70-99) 112 mg/dL (70-99) Test 02/06/20 05:10 02/06/20 08:13 Sodium Level 142 mmol/L (136-145) Potassium Level 3.1 mmol/L (3.5-5.1) Chloride Level 104 mmol/L (98-107) Carbon Dioxide Level 25 mmol/L (21-32) Anion Gap 13 (6-14) Blood Urea Nitrogen 28 mg/dL (7-20) Creatinine 6.0 mg/dL (0.6-1.0) Estimated GFR (Cockcroft-Gault) 7.1 Glucose Level 212 mg/dL (70-99) Calcium Level 7.4 mg/dL (8.5-10.1) Magnesium Level 1.9 mg/dL (1.8-2.4) Random Vancomycin Level 21.1 mcg/mL Glucose (Fingerstick) 144 mg/dL (70-99) Allergies: Coded Allergies: I S O L A T I O N *CONTACT* (Verified Allergy, Unknown, MRSA, 09/21/19) No Known Medication Allergies (Verified Allergy, Unknown, 02/05/20) Medications: Current Medications Medications (Trade) Dose Ordered Sig/Juanito Route PRN Reason Start Time Stop Time Status Last Admin Dose Admin Vancomycin HCl (Vancomycin Random Level) 1 each 1X ONCE MC 02/06/20 06:00 02/06/20 06:01 DC 02/06/20 06:00 Potassium Chloride (Klor-Con) 40 meq 1X ONCE PO 02/05/20 12:15 02/05/20 12:22 DC 02/05/20 12:44 Gabapentin (Neurontin) 100 mg TID PO 02/05/20 21:00 02/06/20 08:09 Imaging: Imaging: CXR 02/01 IMPRESSION: 1. Right IJ tip projects over the distal SVC. 2. No acute infiltrates are seen. Head CT 02/01 IMPRESSION: No acute intracranial findings. Echocardiogram 02/04 <Conclusion> The left ventricle is normal size. Left ventricle systolic function is low normal. The Ejection Fraction is 50-55%. Septal motion consistent with conduction abnormality. There is no significant aortic valvular stenosis. Doppler and Color Flow revealed no significant aortic regurgitation. Doppler and Color Flow revealed trace mitral valve regurgitation. Doppler and Color Flow revealed no tricuspid valve regurgitation noted. PE: GEN: NAD, was asleep HEENT: Atraumatic, PERRL LUNGS: CTAB HEART: RRR ABD: NABS, S/ND/NT, PD cath w/ dressing EXTREMITY: right AKA SKIN: No rashes, no jaundice NEURO/PSYCH: A & O 3 A/P: A/P: ?sepsis - blood cx negative Leukocytosis, lactic acidosis, anemia, elevated troponin Anorexia, ?vomiting CRC screen - none Change in bowel habits COVID-19 negative 02/02/20 ESRD on PD, DM, h/o PVD on Plavix and ASA -- Difficult to get a good feel for her symptoms. 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 Check B12. Will return later w/ Dr. Pittman - not sure if EGD would be beneficial. Check stool studies. DALE COWAN Feb 06, 2020 09:31
[2020-02-06 10:50] VITALS: BP 111/60
--- NOTE | 2020-02-06 11:27 | PDOC ---
Renal-Progress Notes Subjective Notes Notes FEELING LESS BLOATED History of Present Illness Hx of present illness STABLE Vitals Vitals Vital Signs Date Time Temp Pulse Resp B/P (MAP) Pulse Ox O2 Delivery O2 Flow Rate FiO2 02/06/20 10:50 97.7 70 21 111/60 (77) 97 Room Air 97.7 Weight Weight [ ] I.O. Intake and Output Intake and Output 02/06/20 07:00 Intake Total 300 ml Output Total 2 ml Balance 298 ml Intake Oral 200 ml IV Total 100 ml Stool Total 2 ml # Voids 2 # Bowel Movements 1 Labs Labs Laboratory Tests Test 02/05/20 11:36 02/05/20 17:01 02/05/20 20:50 02/06/20 05:10 Glucose (Fingerstick) 107 mg/dL (70-99) 74 mg/dL (70-99) 112 mg/dL (70-99) Sodium Level 142 mmol/L (136-145) Potassium Level 3.1 mmol/L (3.5-5.1) Chloride Level 104 mmol/L (98-107) Carbon Dioxide Level 25 mmol/L (21-32) Anion Gap 13 (6-14) Blood Urea Nitrogen 28 mg/dL (7-20) Creatinine 6.0 mg/dL (0.6-1.0) Estimated GFR (Cockcroft-Gault) 7.1 Glucose Level 212 mg/dL (70-99) Calcium Level 7.4 mg/dL (8.5-10.1) Magnesium Level 1.9 mg/dL (1.8-2.4) Random Vancomycin Level 21.1 mcg/mL Test 02/06/20 08:13 Glucose (Fingerstick) 144 mg/dL (70-99) Micro Micro Microbiology 02/02/20 Blood Culture - Preliminary, Resulted NO GROWTH AFTER 3 DAYS Review of Systems Constitutional: yes: weakness, alert, oriented Ears/Nose/Throat: Yes: no symptom reported Eyes: Yes: no symptom reported Pulmonary: Yes dyspnea Cardiovascular: Yes no symptom reported Gastrointestional: Yes: constipation Genitourinary: Yes: no symptom reported Musculoskeletal: Yes: no symptom reported Skin: Yes no symptom reported Psychiatric/Neurological: Yes: no symptom reported Endocrine: Yes: no symptom reported Physical Exam General Appearance: no apparent distress Skin: warm Respiratory: decreased breath sounds Heart: S1S2 Abdomen: soft, bowel sounds present Genitourinary: bladder flat Neurology: alert, oriented, follow commands Assessment Assessment IMP SEPSIS SACRAL DECUB HYPOKALEMIA LOW MAG-REPLETED ESRD HYPERVOLEMIA-BETTER PLAN CONT PD CONT WITH COMBINATION OF 1.25 AND 2.5% DIANEAL CONT ANTIBIOTICS REPLACE K AND MAG NEEDED WILL FOLLOW MARICEL BURROUGHS MD Feb 06, 2020 11:27
[2020-02-06] MEDS ORDERED: POTASSIUM CHLORIDE 20 MEQ TABLET.ER. PO ONE (11:30)
[2020-02-06] MEDS: NYSTATIN 100,000 UNITS/ML 5 ML ORAL.SUSP. SWSW SCH ×3 (12:08→21:08)
[2020-02-06] MEDS: LIDO:MAALOX:BENADRYL 1:1:1 180 ML BOTTLE. PO SCH ×3 (12:09→21:08)
--- NOTE | 2020-02-06 13:14 | PDOC ---
ALECIA PALOMARES TIN WORKER 02/06/20 1313: CARDIO Progress Notes Date and Time Date of Service 02/06/20 Time of Evaluation 1115 Subjective Subjective: No Chest Pain, No shortness of breath, No Palpitations Vitals Vitals Vital Signs Date Time Temp Pulse Resp B/P (MAP) Pulse Ox O2 Delivery O2 Flow Rate FiO2 02/06/20 10:50 97.7 70 21 111/60 (77) 97 Room Air 97.7 Weight Weight [ ] Input and Output Intake and Output Intake and Output 02/06/20 07:00 Intake Total 300 ml Output Total 2 ml Balance 298 ml Intake Oral 200 ml IV Total 100 ml Stool Total 2 ml # Voids 2 # Bowel Movements 1 Laboratory Labs Laboratory Tests Test 02/05/20 17:01 02/05/20 20:50 02/06/20 05:10 02/06/20 08:13 Glucose (Fingerstick) 74 mg/dL (70-99) 112 mg/dL (70-99) 144 mg/dL (70-99) Sodium Level 142 mmol/L (136-145) Potassium Level 3.1 mmol/L (3.5-5.1) Chloride Level 104 mmol/L (98-107) Carbon Dioxide Level 25 mmol/L (21-32) Anion Gap 13 (6-14) Blood Urea Nitrogen 28 mg/dL (-20) Creatinine 6.0 mg/dL (0.6-1.0) Estimated GFR (Cockcroft-Gault) 7.1 Glucose Level 212 mg/dL (70-99) Calcium Level 7.4 mg/dL (8.5-10.1) Magnesium Level 1.9 mg/dL (1.8-2.4) Random Vancomycin Level 21.1 mcg/mL Test 02/06/20 11:37 Glucose (Fingerstick) 112 mg/dL (70-99) Microbiology Micro Microbiology 02/02/20 Blood Culture - Preliminary, Resulted NO GROWTH AFTER 3 DAYS Review of Systems Constitutional: yes: weakness, alert, oriented Ears/Nose/Throat: Yes: no symptom reported Eyes: Yes: no symptom reported Pulmonary: Yes dyspnea Cardiovascular: Yes no symptom reported Gastrointestional: Yes: constipation Genitourinary: Yes: no symptom reported Musculoskeletal: Yes: no symptom reported Skin: Yes no symptom reported Psychiatric/Neurological: Yes: no symptom reported Endocrine: Yes: no symptom reported Physical Exam HEENT: Neck Supple W Full Motion Chest: Symmetric LUNGS: Clear to Auscultation Heart: RRR Extremities: No Edema, Other (bilateral AKA) Neurology: alert, oriented, follow commands Assessment Assessment 1. Leukocytosis, lactic acidosis. ? sepsis. BC negative so far 2. Hypotension; improved 3. ESRD on HD 4. Mild troponin elevation; peak 0.26. EKG without significant acute changes. CP free. Most probably type II, demand ischemia. Echo with preserved LV systolic function, no WMA. 5. Diabetes, II 6. History of a CVA. 7. Hypokalemia, recurrent Recommendations ASA therapy Lipids Fluid offloading/management via HD Consider outpatient ischemic evaluation Supportive care Justicifation of Admission Dx: Justifications for Admission: Justification of Admission Dx: Yes Sepsis: Infection CALEB CROCKETT MD 02/06/20 1711: CARDIO Progress Notes Assessment Assessment Patient seen and examined Leukocytosis, lactic acidosis. ? sepsis. BC negative so far Hypotension; improved ESRD on HD Mild troponin elevation; peak 0.26. EKG without significant acute changes. CP free. Most probably type II, demand ischemia. Echo with preserved LV systolic function, no WMA. Probable outpatient ischemic evaluation History of a CVA. ALECIA PALOMARES APRN Feb 06, 2020 13:13 CALEB CROCKETT MD Feb 06, 2020 17:11
--- NOTE | 2020-02-06 13:19 | PDOC ---
[facility] PROGRESS NOTE Chief Complaint Chief Complaint Septic Shock, unclear source: broad spectrum abx for now, continue blood cultures. covid negative Sacral Decub Ulcer stage 1 POA: wound care consulted lactic acidosis: lactate improved Hypokalemia: replete as needed HypoMagnesemia: replete as needed ESRD on PD: nephro consult for PD Leukocytosis: trend CBC Nausea and Vomiting: advance diet as tolerated Elevated Trop: likely demand ischemia; apprec cards Elevated BNP: echo pending Hx of CVA DVT PPX GI PPX diet: CLD FULL CODE okay to transfer to floor bed. History of Present Illness History of Present Illness 02/06/2020 Pt seen and examined Chart reviewed Discussed with RN Awaiting GI evaluation 02/05/2020 Patient now transferred out of ICU to telemetry Discussed with RN Chart reviewed Vitals/I&O Vitals/I&O: Vital Signs Date Time Temp Pulse Resp B/P (MAP) Pulse Ox O2 Delivery O2 Flow Rate FiO2 02/06/20 10:50 97.7 70 21 111/60 (77) 97 Room Air 97.7 I & O 02/05/20 02/05/20 02/06/20 15:00 23:00 07:00 Intake Total 200 ml 50 ml 50 ml Output Total 2 ml Balance 198 ml 50 ml 50 ml Physical Exam General: No acute distress Heart: Regular rate Lungs: Clear Abdomen: Other Extremities: No clubbing Skin: No rashes Labs Labs: Laboratory Tests Test 02/05/20 17:01 02/05/20 20:50 02/06/20 05:10 02/06/20 08:13 Glucose (Fingerstick) 74 mg/dL (70-99) 112 mg/dL (70-99) 144 mg/dL (70-99) Sodium Level 142 mmol/L (136-145) Potassium Level 3.1 mmol/L (3.5-5.1) Chloride Level 104 mmol/L (98-107) Carbon Dioxide Level 25 mmol/L (21-32) Anion Gap 13 (6-14) Blood Urea Nitrogen 28 mg/dL (7-20) Creatinine 6.0 mg/dL (0.6-1.0) Estimated GFR (Cockcroft-Gault) 7.1 Glucose Level 212 mg/dL (70-99) Calcium Level 7.4 mg/dL (8.5-10.1) Magnesium Level 1.9 mg/dL (1.8-2.4) Random Vancomycin Level 21.1 mcg/mL Test 02/06/20 11:37 Glucose (Fingerstick) 112 mg/dL (70-99) Assessment and Plan Assessmemt and Plan Problems Medical Problems: (1) Septic shock Status: Acute Comment Review of Relevant I have reviewed the following items sujatha (where applicable) has been applied. Medications: Current Medications Medications (Trade) Dose Ordered Sig/Juanito Route PRN Reason Start Time Stop Time Status Last Admin Dose Admin Vancomycin HCl (Vancomycin Random Level) 1 each 1X ONCE MC 02/06/20 06:00 02/06/20 06:01 DC 02/06/20 06:00 Gabapentin (Neurontin) 100 mg TID PO 02/05/20 21:00 02/06/20 08:09 Multi-Ingredient Mouthwash/Gargle (Magic Mouthwash) 10 ml QID PO 02/06/20 13:00 02/06/20 12:09 Nystatin (Nystatin Oral Susp) 5 ml [id number] [facility] 02/06/20 13:00 02/06/20 12:08 Potassium Chloride (Klor-Con) 40 meq 1X ONCE PO 02/06/20 11:30 02/06/20 11:31 DC 02/06/20 12:08 Justicifation of Admission Dx: Justifications for Admission: Justification of Admission Dx: Yes Sepsis: Infection MONSTER COWAN III DO Feb 06, 2020 13:19
--- NOTE | 2020-02-06 13:33 | NUR ---
SS following for discharge planning. SS reviewed pt chart and discussed with pt RN. Pt is currently on room air and IV Zosyn. Clear liquid diet. GI following. COVID19 negative. SS will continue to follow for discharge planning.
[2020-02-06 15:00] VITALS: BP 128/73
[2020-02-06 17:14] LABS: HDLC 24 mg/dL (40-60); TRIGLYCERIDES 71 mg/dL (0-150); VLDLC 14 mg/dL (0-40)
[2020-02-06 17:15] LABS: CHOLESTEROL < 50 mg/dL (0-200); CHOLESTEROL/HDL RATIO 2.1; LDLC 12 mg/dL (0-100)
[2020-02-06 19:00] VITALS: BP 103/62
[2020-02-06] MEDS: ATORVASTATIN CALCIUM 40 MG TABLET. PO SCH (20:58)
[2020-02-06 23:00] VITALS: BP 97/55
[2020-02-07 03:00] VITALS: BP_SYST 101; BP_SYST 160; BP_DIAS 56; BP_DIAS 70
[2020-02-07] MEDS: PIPERACILLIN/TAZOBACTAM 2.25 GM in IV NORMAL SALINE 50ML 50 ML IV SCH ×3 (05:59→21:36)
[2020-02-07 06:41] LABS: CALCIUM 7.3 mg/dL (8.5-10.1); CREATININE 5.9 mg/dL (0.6-1.0); GFR 7.2; MAGNESIUM 1.8 mg/dL (1.8-2.4); POTASSIUM 3.1 mmol/L (3.5-5.1)
[2020-02-07 07:00] VITALS: BP 92/59
[2020-02-07] MEDS: INSULIN LISPRO 300 UNITS/3 ML VIAL. SQ SCH ×3 (08:00→17:33)
[2020-02-07] MEDS: SENNOSIDES/DOCUSATE 8.6/50MG TABLET. PO SCH ×3 (09:00→21:36)
--- NOTE | 2020-02-07 09:27 | PDOC ---
Subjective: Subjective: Says she ate well yesterday and her daughter was pleased. Didn't like breakfast as much this morning - not really sure why - does mention she doesn't like "Equal sugar." Stools less liquidy. Thinks Magic Mouthwash and/or Nystatin is helping. Objective: Objective: B12 okay, iron saturation abnormal. Per nurse - no GI concerns. Vital Signs: Vital Signs Date Time Temp Pulse Resp B/P (MAP) Pulse Ox O2 Delivery O2 Flow Rate FiO2 02/07/20 07:00 98.2 70 20 92/59 (70) 94 Room Air 98.2 Labs: Laboratory Tests Test 02/06/20 11:37 02/06/20 16:35 02/06/20 21:24 02/07/20 06:15 Glucose (Fingerstick) 112 mg/dL 94 mg/dL 130 mg/dL Sodium Level 141 mmol/L Potassium Level 3.1 mmol/L Chloride Level 104 mmol/L Carbon Dioxide Level 26 mmol/L Anion Gap 11 Blood Urea Nitrogen 26 mg/dL Creatinine 5.9 mg/dL Estimated GFR (Cockcroft-Gault) 7.2 Glucose Level 195 mg/dL Calcium Level 7.3 mg/dL Magnesium Level 1.8 mg/dL Test 02/07/20 08:04 Glucose (Fingerstick) 119 mg/dL BLOOD CULTURE Preliminary NO GROWTH AFTER 4 DAYS PE: GEN: NAD - breakfast tray with a couple bites of sausage and oatmeal gone LUNGS: CTAB HEART: RRR ABD: S/ND/NT NEURO/PSYCH: A & O 3 A/P: ?sepsis - blood cx negative Anorexia, altered tongue sensation - better w/ topical therapy, PPI Loose stools - better, tests pending COVID-19 negative 02/02/20 ESRD on PD, DM, PVD -- ?better - will continue same from GI standpoint - would nutrition input be helpful? Encouraged PO. Justicifation of Admission Dx: Justifications for Admission: Justification of Admission Dx: Yes Sepsis: Infection DALE COWAN Feb 07, 2020 09:27
[2020-02-07] MEDS: NYSTATIN 100,000 UNITS/ML 5 ML ORAL.SUSP. SWSW SCH ×4 (09:29→21:00)
[2020-02-07] MEDS: CLOPIDOGREL BISULFATE 75 MG TABLET PO SCH (09:29)
[2020-02-07] MEDS: GABAPENTIN 100 MG CAPSULE. PO SCH ×3 (09:29→21:37)
[2020-02-07] MEDS: LACTOBACILLUS RHAMNOSUS GG 1 CAPSULE. PO SCH ×2 (09:29→21:37)
[2020-02-07] MEDS: ASPIRIN ENTERIC COATED 81 MG TABLET.DR. PO SCH (09:29)
[2020-02-07] MEDS: ACETAMINOPHEN 325 MG TABLET. PO PRN ×2 (09:38→22:40)
[2020-02-07] MEDS: PANTOPRAZOLE 40 MG TABLET.DR. PO SCH (09:39)
[2020-02-07] MEDS: HEPARIN for SUB-Q USE 5,000 UNIT/ML VIAL. SQ SCH ×2 (09:44→21:43)
[2020-02-07] MEDS: ELECTROLYTE (ICU) PROTOCOL. MC SCH (10:15)
[2020-02-07] MEDS: VANCOMYCIN PER PHARMACY MC PRN (10:58)
[2020-02-07 11:00] VITALS: BP 90/53
--- NOTE | 2020-02-07 11:13 | PDOC ---
Renal-Progress Notes Subjective Notes Notes EATING BETTER History of Present Illness Hx of present illness STABLE Vitals Vitals Vital Signs Date Time Temp Pulse Resp B/P (MAP) Pulse Ox O2 Delivery O2 Flow Rate FiO2 02/07/20 07:00 98.2 70 20 92/59 (70) 94 Room Air 98.2 Weight Weight [ ] I.O. Intake and Output Intake and Output 02/07/20 07:00 Output Total 0 ml Balance 0 ml Output Urine Total 0 ml # Bowel Movements 3 Labs Labs Laboratory Tests Test 02/06/20 11:37 02/06/20 16:35 02/06/20 21:24 02/07/20 06:15 Glucose (Fingerstick) 112 mg/dL (70-99) 94 mg/dL (70-99) 130 mg/dL (70-99) Sodium Level 141 mmol/L (136-145) Potassium Level 3.1 mmol/L (3.5-5.1) Chloride Level 104 mmol/L (98-107) Carbon Dioxide Level 26 mmol/L (21-32) Anion Gap 11 (6-14) Blood Urea Nitrogen 26 mg/dL (-20) Creatinine 5.9 mg/dL (0.6-1.0) Estimated GFR (Cockcroft-Gault) 7.2 Glucose Level 195 mg/dL (70-99) Calcium Level 7.3 mg/dL (8.5-10.1) Magnesium Level 1.8 mg/dL (1.8-2.4) Test 02/07/20 08:04 Glucose (Fingerstick) 119 mg/dL (70-99) Micro Micro Microbiology 02/02/20 Blood Culture - Preliminary, Resulted NO GROWTH AFTER 4 DAYS Review of Systems Constitutional: yes: weakness, alert, oriented Ears/Nose/Throat: Yes: no symptom reported Eyes: Yes: no symptom reported Pulmonary: Yes dyspnea Cardiovascular: Yes no symptom reported Gastrointestional: Yes: constipation Genitourinary: Yes: no symptom reported Musculoskeletal: Yes: no symptom reported Skin: Yes no symptom reported Psychiatric/Neurological: Yes: no symptom reported Endocrine: Yes: no symptom reported Physical Exam General Appearance: no apparent distress Skin: warm Respiratory: decreased breath sounds Heart: S1S2 Abdomen: soft, bowel sounds present Genitourinary: bladder flat Neurology: alert, oriented, follow commands Assessment Assessment IMP SEPSIS SACRAL DECUB HYPOKALEMIA LOW MAG-REPLETED ESRD HYPERVOLEMIA-BETTER PLAN CONT PD CONT WITH COMBINATION OF 1.25 AND 2.5% DIANEAL CONT ANTIBIOTICS REPLACE K AND MAG NEEDED WILL FOLLOW MARICEL BURROUGHS MD Feb 07, 2020 11:13
[2020-02-07] MEDS: POTASSIUM CHLORIDE 20MEQ 100 ML IV SCH ×2 (11:18→12:47)
[2020-02-07] MEDS: LIDO:MAALOX:BENADRYL 1:1:1 180 ML BOTTLE. PO SCH ×2 (11:19→17:26)
--- NOTE | 2020-02-07 12:17 | PDOC ---
[facility] [facility] PROGRESS NOTE Chief Complaint Chief Complaint Septic Shock, unclear source: broad spectrum abx for now, continue blood cultures. covid negative Sacral Decub Ulcer stage 1 POA: wound care consulted lactic acidosis: lactate improved Hypokalemia: replete as needed HypoMagnesemia: replete as needed ESRD on PD: nephro consult for PD Leukocytosis: trend CBC Nausea and Vomiting: advance diet as tolerated Elevated Trop: likely demand ischemia; apprec cards Elevated BNP: echo pending Hx of CVA DVT PPX GI PPX diet: CLD FULL CODE okay to transfer to floor bed. History of Present Illness History of Present Illness 02/07/2020 Awaiting wound care evaluation Pt seen and examined Discussed with RN 02/06/2020 Pt seen and examined Chart reviewed Discussed with RN Awaiting GI evaluation 02/05/2020 Patient now transferred out of ICU to telemetry Discussed with RN Chart reviewed Vitals/I&O Vitals/I&O: Vital Signs Date Time Temp Pulse Resp B/P (MAP) Pulse Ox O2 Delivery O2 Flow Rate FiO2 02/07/20 11:00 97.4 74 20 90/53 (65) 92 Room Air 97.4 I & O 02/06/20 02/06/20 02/07/20 15:00 23:00 07:00 Output Total 0 ml Balance 0 ml Physical Exam General: Alert, Cooperative, No acute distress Heart: Regular rate Lungs: Clear Abdomen: Other Extremities: No clubbing Skin: No rashes Labs Labs: Laboratory Tests Test 02/06/20 16:35 02/06/20 21:24 02/07/20 06:15 02/07/20 08:04 Glucose (Fingerstick) 94 mg/dL (70-99) 130 mg/dL (70-99) 119 mg/dL (70-99) Sodium Level 141 mmol/L (136-145) Potassium Level 3.1 mmol/L (3.5-5.1) Chloride Level 104 mmol/L (98-107) Carbon Dioxide Level 26 mmol/L (21-32) Anion Gap 11 (6-14) Blood Urea Nitrogen 26 mg/dL (7-20) Creatinine 5.9 mg/dL (0.6-1.0) Estimated GFR (Cockcroft-Gault) 7.2 Glucose Level 195 mg/dL (70-99) Calcium Level 7.3 mg/dL (8.5-10.1) Magnesium Level 1.8 mg/dL (1.8-2.4) Test 02/07/20 12:05 Glucose (Fingerstick) 96 mg/dL (70-99) Assessment and Plan Assessmemt and Plan Problems Medical Problems: (1) Septic shock Status: Acute Septic Shock, unclear source Sacral Decub Ulcer stage 1 POA lactic acidosis Hypokalemia HypoMagnesemia ESRD on PD Leukocytosis Nausea and Vomiting Elevated Trop: likely demand ischemia Elevated BNP Hx of CVA Plan IV Antibiotics DVT prophylaxis Home meds Wound care Trend labs Advance diet as tolerated May need a wound VAC Echo cardiogram Peritoneal dialysis Trend labs Discharge Disposition Pending Appreciate subspecialist input Discussed with behavioral health case manager Comment Review of Relevant I have reviewed the following items sujatha (where applicable) has been applied. Medications: Current Medications Medications (Trade) Dose Ordered Sig/Juanito Route PRN Reason Start Time Stop Time Status Last Admin Dose Admin Pantoprazole Sodium (Protonix) 40 mg DAILYAC PO 02/07/20 07:30 02/07/20 09:39 Multi-Ingredient Mouthwash/Gargle (Magic Mouthwash) 10 ml QID PO 02/06/20 13:00 02/07/20 09:24 DC 02/06/20 21:08 Nystatin (Nystatin Oral Susp) 5 ml [id number] 02/06/20 13:00 02/07/20 09:29 Multi-Ingredient Mouthwash/Gargle (Magic Mouthwash) 10 ml TIDAC PO 02/07/20 11:30 02/07/20 11:19 Potassium Chloride/Water 100 ml @ 100 mls/hr Q1H IV 02/07/20 10:30 02/07/20 12:29 02/07/20 11:18 Justicifation of Admission Dx: Justifications for Admission: Justification of Admission Dx: Yes Sepsis: Infection MONSTER COWAN III DO Feb 07, 2020 12:17
--- NOTE | 2020-02-07 12:47 | NUR ---
SS following up with discharge planning. SS reviewed pt chart and discussed with pt RN. Pt is currently on room air. Pt has peritoneal dialysis at home. Pt on IV Zosyn. COVID19 negative. Discharge plan is to home when ready. SS will continue to follow for discharge planning.
[2020-02-07] MEDS: POTASSIUM CHLORIDE 20 MEQ TABLET.ER. PO SCH (12:49)
--- NOTE | 2020-02-07 13:12 | PDOC ---
CARDIO Progress Notes Date and Time Date of Service 02/07/2020 Time of Evaluation 1100 Subjective Subjective: No Chest Pain, No shortness of breath, No Palpitations Vitals Vitals Vital Signs Date Time Temp Pulse Resp B/P (MAP) Pulse Ox O2 Delivery O2 Flow Rate FiO2 02/07/20 11:00 97.4 74 20 90/53 (65) 92 Room Air 97.4 Weight Weight [ ] Input and Output Intake and Output Intake and Output 02/07/20 07:00 Output Total 0 ml Balance 0 ml Output Urine Total 0 ml # Bowel Movements 3 Laboratory Labs Laboratory Tests Test 02/06/20 16:35 02/06/20 21:24 02/07/20 06:15 02/07/20 08:04 Glucose (Fingerstick) 94 mg/dL (70-99) 130 mg/dL (70-99) 119 mg/dL (70-99) Sodium Level 141 mmol/L (136-145) Potassium Level 3.1 mmol/L (3.5-5.1) Chloride Level 104 mmol/L (98-107) Carbon Dioxide Level 26 mmol/L (21-32) Anion Gap 11 (6-14) Blood Urea Nitrogen 26 mg/dL (7-20) Creatinine 5.9 mg/dL (0.6-1.0) Estimated GFR (Cockcroft-Gault) 7.2 Glucose Level 195 mg/dL (70-99) Calcium Level 7.3 mg/dL (8.5-10.1) Magnesium Level 1.8 mg/dL (1.8-2.4) Test 02/07/20 12:05 Glucose (Fingerstick) 96 mg/dL (70-99) Microbiology Micro Microbiology 02/02/20 Blood Culture - Preliminary, Resulted NO GROWTH AFTER 4 DAYS Review of Systems Constitutional: yes: weakness, alert, oriented Ears/Nose/Throat: Yes: no symptom reported Eyes: Yes: no symptom reported Pulmonary: Yes dyspnea Cardiovascular: Yes no symptom reported Gastrointestional: Yes: constipation Genitourinary: Yes: no symptom reported Musculoskeletal: Yes: no symptom reported Skin: Yes no symptom reported Psychiatric/Neurological: Yes: no symptom reported Endocrine: Yes: no symptom reported Physical Exam HEENT: Neck Supple W Full Motion Chest: Symmetric LUNGS: Clear to Auscultation Heart: RRR (SR) Extremities: Other (bilateral AKA) Neurology: alert, oriented, follow commands Assessment Assessment 1. Leukocytosis, lactic acidosis. ? sepsis. BC negative so far 2. Hypotension; low end but stable. 3. ESRD on HD 4. Mild troponin elevation; peak 0.26. EKG without significant acute changes. CP free. Most probably type II, demand ischemia. Echo with preserved LV systolic function, no WMA. 5. Diabetes, II 6. History of a CVA. 7. Hypokalemia, recurrent 8. PSVT: brief 9. Hx of severe PAD and with bilateral AKA: with most recent left leg Recommendations 1. Continue home ASA and plavix with reported hx of femoral stent and CVA 2. Fluid offloading/management via PD 3. If no recent stress test then consider outpt lexiscan unless sees [facility] watch guard gate otherwise may follow up in our office. 4. Will also need MCOT and note burden and any further arrhythmias. At this time would not be able to place on BB due to low end BP. 5. 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
[2020-02-07 15:11] VITALS: BP 101/53
--- NOTE | 2020-02-07 16:30 | NUR ---
Wound Care Wound Type/Assessment: Eval and treat for multiple wounds to coccyx. Wound to intergluteal cleft healed, assessment discontinued. Red open area (IASD) to perianal area, cleansed and A&D applied, left [employer]. Incision to LAKA site cleansed, pictured and dressing applied. Per patient she had her AKA on 01/02/2020, and a follow up on 02/02/2020, where her mac were left in place d/t active oozing blood. On assessment, AKA incision dusky, approximated, and mac intact. Pt complains of acute pain during dressing removal . Treatment Recommendations/Plan: Perianalcoccyx: Cleanse and apply A&D ointment BID and PRN incontinence. LAKA:Cleanse with chloroprep, cover incision line with xeroform, ABD, and kerlix. Change every other day and prn soiling. Education provided: Encouraged pt to turn frequently to avoid skin breakdown. Encouraged that after discharge to call amputating surgeon to notify of hospitalization, increased pain, and weakness. Offloading surface/device: Pillows for positioning and comfort. Discharge Recommendations for dressings: xeroform, ABD, kerlix. Change every other day. Anticipated Follow up 02/13/2020
[2020-02-07] MEDS ORDERED: VITS A & D/LANOLIN TOPICAL OINTMENT 42GM TUBE. TP PRN (17:00)
[2020-02-07 19:59] VITALS: BP 97/52
[2020-02-07] MEDS: ATORVASTATIN CALCIUM 40 MG TABLET. PO SCH (21:37)
[2020-02-07 22:30] VITALS: BP 91/47
[2020-02-08 03:53] VITALS: BP 87/49
[2020-02-08] MEDS: PIPERACILLIN/TAZOBACTAM 2.25 GM in IV NORMAL SALINE 50ML 50 ML IV SCH ×2 (05:10→14:00)
[2020-02-08 05:36] LABS: CALCIUM 7.1 mg/dL (8.5-10.1); CREATININE 5.9 mg/dL (0.6-1.0); GFR 7.2; MAGNESIUM 1.6 mg/dL (1.8-2.4); POTASSIUM 3.6 mmol/L (3.5-5.1)
[2020-02-08 07:00] VITALS: BP 96/52
[2020-02-08] MEDS: LIDO:MAALOX:BENADRYL 1:1:1 180 ML BOTTLE. PO SCH ×3 (07:30→16:30)
[2020-02-08] MEDS: INSULIN LISPRO 300 UNITS/3 ML VIAL. SQ SCH ×3 (08:00→17:00)
[2020-02-08] MEDS: LACTOBACILLUS RHAMNOSUS GG 1 CAPSULE. PO SCH (08:41)
[2020-02-08] MEDS: CLOPIDOGREL BISULFATE 75 MG TABLET PO SCH (08:42)
[2020-02-08] MEDS: POTASSIUM CHLORIDE 20 MEQ TABLET.ER. PO SCH (08:42)
[2020-02-08] MEDS: ACETAMINOPHEN 325 MG TABLET. PO PRN (08:42)
[2020-02-08] MEDS: GABAPENTIN 100 MG CAPSULE. PO SCH ×2 (08:42→15:56)
[2020-02-08] MEDS: PANTOPRAZOLE 40 MG TABLET.DR. PO SCH (08:42)
[2020-02-08] MEDS: NYSTATIN 100,000 UNITS/ML 5 ML ORAL.SUSP. SWSW SCH ×3 (08:42→17:00)
[2020-02-08] MEDS: ASPIRIN ENTERIC COATED 81 MG TABLET.DR. PO SCH (08:42)
[2020-02-08] MEDS: HEPARIN for SUB-Q USE 5,000 UNIT/ML VIAL. SQ SCH (08:44)
[2020-02-08] MEDS: SENNOSIDES/DOCUSATE 8.6/50MG TABLET. PO SCH (09:00)
[2020-02-08] MEDS: ELECTROLYTE (ICU) PROTOCOL. MC SCH (09:00)
--- NOTE | 2020-02-08 10:50 | PDOC ---
Subjective: Subjective: Ordered cereal and bagel - didn't get cereal and bagel was toasted too much - "you would need very hard teeth." Going to drink Ensure. Objective: Objective: D/w nurse - eats food daughter brings. Vital Signs: Vital Signs Date Time Temp Pulse Resp B/P (MAP) Pulse Ox O2 Delivery O2 Flow Rate FiO2 02/08/20 07:35 Room Air 02/08/20 07:00 98.6 75 16 96/52 (67) 100 98.6 Labs: Laboratory Tests Test 02/07/20 12:05 02/07/20 17:09 02/08/20 05:10 02/08/20 08:12 Glucose (Fingerstick) 96 mg/dL 194 mg/dL 92 mg/dL Sodium Level 140 mmol/L Potassium Level 3.6 mmol/L Chloride Level 103 mmol/L Carbon Dioxide Level 25 mmol/L Anion Gap 12 Blood Urea Nitrogen 23 mg/dL Creatinine 5.9 mg/dL Estimated GFR (Cockcroft-Gault) 7.2 Glucose Level 133 mg/dL Calcium Level 7.1 mg/dL Magnesium Level 1.6 mg/dL PE: GEN: NAD LUNGS: CTAB HEART: RRR ABD: S/ND/NT NEURO/PSYCH: A & O 3 A/P: Anorexia, tongue sensitivity - better ESRD on PD, DM, PVD -- Encouraged PO - Ensure a good option - discussed with her. DC okay per GI - would complete 5 days of Nystatin. Can consider outpt screening colonoscopy - prep would be difficult w/ amputations, etc. Justicifation of Admission Dx: Justifications for Admission: Justification of Admission Dx: Yes Sepsis: Infection TAMERA-DALE CASTELLANOS Feb 08, 2020 10:50
[2020-02-08] MEDS: VANCOMYCIN PER PHARMACY MC PRN (10:55)
[2020-02-08 11:00] VITALS: BP 87/44
--- NOTE | 2020-02-08 11:06 | PDOC ---
CARDIO Progress Notes Date and Time Date of Service 02/08/2020 Time of Evaluation 1010 Subjective Subjective: No Chest Pain, No shortness of breath, No Palpitations Vitals Vitals Vital Signs Date Time Temp Pulse Resp B/P (MAP) Pulse Ox O2 Delivery O2 Flow Rate FiO2 02/08/20 07:35 Room Air 02/08/20 07:00 98.6 75 16 96/52 (67) 100 98.6 Weight Weight [ ] Input and Output Intake and Output Intake and Output 02/08/20 07:00 Intake Total 360 ml Output Total 0 ml Balance 360 ml Intake Oral 360 ml Output Urine Total 0 ml # Voids 1 # Bowel Movements 7 Laboratory Labs Laboratory Tests Test 02/07/20 12:05 02/07/20 17:09 02/08/20 05:10 02/08/20 08:12 Glucose (Fingerstick) 96 mg/dL (70-99) 194 mg/dL (70-99) 92 mg/dL (70-99) Sodium Level 140 mmol/L (136-145) Potassium Level 3.6 mmol/L (3.5-5.1) Chloride Level 103 mmol/L (98-107) Carbon Dioxide Level 25 mmol/L (21-32) Anion Gap 12 (6-14) Blood Urea Nitrogen 23 mg/dL (7-20) Creatinine 5.9 mg/dL (0.6-1.0) Estimated GFR (Cockcroft-Gault) 7.2 Glucose Level 133 mg/dL (70-99) Calcium Level 7.1 mg/dL (8.5-10.1) Magnesium Level 1.6 mg/dL (1.8-2.4) Microbiology Micro Microbiology 02/02/20 Blood Culture - Final, Complete NO GROWTH AFTER 5 DAYS Review of Systems Constitutional: yes: weakness, alert, oriented Ears/Nose/Throat: Yes: no symptom reported Eyes: Yes: no symptom reported Pulmonary: Yes dyspnea Cardiovascular: Yes no symptom reported Gastrointestional: Yes: constipation Genitourinary: Yes: no symptom reported Musculoskeletal: Yes: no symptom reported Skin: Yes no symptom reported Psychiatric/Neurological: Yes: no symptom reported Endocrine: Yes: no symptom reported Physical Exam HEENT: Neck Supple W Full Motion Chest: Symmetric LUNGS: Clear to Auscultation Heart: RRR (SR) Extremities: Other (bilateral AKA) Neurology: alert, oriented, follow commands Assessment Assessment 1. Leukocytosis, lactic acidosis. ? sepsis. BC negative so far 2. Hypotension; low end but stable. 3. ESRD on HD 4. Mild troponin elevation; peak 0.26. EKG without significant acute changes. CP free. Most probably type II, demand ischemia. Echo with preserved LV systolic function, no WMA. CP free 5. Diabetes, II 6. History of a CVA. 7. Hypokalemia, recurrent 8. PSVT: brief episodes 9. Hx of severe PAD and with bilateral AKA: with most recent left leg Recommendations 1. Continue home ASA and plavix with reported hx of femoral stent and CVA 2. Fluid offloading/management via PD 3. Follow up in office and will consider for outpt stress test. 4. Will also need MCOT and note burden and any further arrhythmias. At this time would not be able to place on BB due to low end BP. Will reeval further post MCOT 5. Replace K, defer to nephrology Justicifation of Admission Dx: Justifications for Admission: Justification of Admission Dx: Yes Sepsis: Infection HAL MO CURER ACID DRUM Feb 08, 2020 11:06
--- NOTE | 2020-02-08 11:56 | PDOC ---
Renal-Progress Notes Subjective Notes Notes NO NEW COMPLAINTS History of Present Illness Hx of present illness STABLE Vitals Vitals Vital Signs Date Time Temp Pulse Resp B/P (MAP) Pulse Ox O2 Delivery O2 Flow Rate FiO2 02/08/20 11:00 98.5 70 16 87/44 (58) 95 Room Air 98.5 Weight Weight [ ] I.O. Intake and Output Intake and Output 02/08/20 07:00 Intake Total 360 ml Output Total 0 ml Balance 360 ml Intake Oral 360 ml Output Urine Total 0 ml # Voids 1 # Bowel Movements 7 Labs Labs Laboratory Tests Test 02/07/20 12:05 02/07/20 17:09 02/08/20 05:10 02/08/20 08:12 Glucose (Fingerstick) 96 mg/dL (70-99) 194 mg/dL (70-99) 92 mg/dL (70-99) Sodium Level 140 mmol/L (136-145) Potassium Level 3.6 mmol/L (3.5-5.1) Chloride Level 103 mmol/L (98-107) Carbon Dioxide Level 25 mmol/L (21-32) Anion Gap 12 (6-14) Blood Urea Nitrogen 23 mg/dL (7-20) Creatinine 5.9 mg/dL (0.6-1.0) Estimated GFR (Cockcroft-Gault) 7.2 Glucose Level 133 mg/dL (70-99) Calcium Level 7.1 mg/dL (8.5-10.1) Magnesium Level 1.6 mg/dL (1.8-2.4) Micro Micro Microbiology 02/02/20 Blood Culture - Final, Complete NO GROWTH AFTER 5 DAYS Review of Systems Constitutional: yes: weakness, alert, oriented Ears/Nose/Throat: Yes: no symptom reported Eyes: Yes: no symptom reported Pulmonary: Yes dyspnea Cardiovascular: Yes no symptom reported Gastrointestional: Yes: constipation Genitourinary: Yes: no symptom reported Musculoskeletal: Yes: no symptom reported Skin: Yes no symptom reported Psychiatric/Neurological: Yes: no symptom reported Endocrine: Yes: no symptom reported Physical Exam General Appearance: no apparent distress Skin: warm Respiratory: decreased breath sounds Heart: S1S2 Abdomen: soft, bowel sounds present Genitourinary: bladder flat Neurology: alert, oriented, follow commands Assessment Assessment IMP SEPSIS SACRAL DECUB HYPOKALEMIA-CORRECTED LOW MAG-REPLETED ESRD HYPERVOLEMIA-BETTER PLAN CONT PD CONT WITH COMBINATION OF 1.25 AND 2.5% DIANEAL CONT ANTIBIOTICS REPLACE K AND MAG NEEDED OK TO D/C FROM RENAL STANDPOINT WILL FOLLOW MARICEL BURROUGHS MD Feb 08, 2020 11:56
--- NOTE | 2020-02-08 12:16 | NUR ---
SS following up with discharge planning. SS reviewed pt chart and discussed with pt RN. Pt is currently on room air. Pt has Peritoneal Dialysis at home. PT recommended home with home healthcare. SS met with pt and discussed discharge planning and home healthcare. Pt reported that she is current on services with [facility], ; fax [phone]. SS will continue to follow for discharge planning.
--- NOTE | 2020-02-08 13:11 | SNU/HH DC ---
DISCHARGE WITH HOME HEALTH DISCHARGE INFORMATION: Final Diagnosis: Problems Medical Problems: (1) Septic shock Status: Acute Condition on Discharge: Stable CODE STATUS: Code Status: Full HOME HEALTH: Face to Face: I certify this patient is under my care and that I, or a nurse practitioner or physician's laboratory assistant working with me, had a face to face encounter that meets the physician face to face encounter requirements with this patient on []. Medical Complications: Other (Sacral wounds and debility) Residential For: Assess & Educate Safety RN For Eval/Treatment: Yes Physical Therapy For: Evalulation/Treatment Occupational Therapy For: Evaluation/Treatment Home Health Aide For: Self-care MEDICAL ASSISTANT OB GYN For: Community Resources Pt Meets Homebound Status: Unsteady balance w/ amb, POST DISCHARGE ORDERS: DIET AFTER DISCHARGE: Cardiac CERTIFICATION STATEMENT: Certification Statement: Certification Statement: Based on the above finding, I certify that this patient is confined to the home and needs intermittent fdc care, physical therapy and/or speech therapy, or continues to need occupational therapy.~ This patient is under my care, and I have initiated the establishment of the plan of care.~ This patient will be followed by myself or a community physician who will periodically review the plan of care. Home Meds Reported Medications Sulfamethoxazole/Trimethoprim (BACTRIM DS TABLET) 1 Each Tablet, 1 TAB PO BID for ANTIBIOTIC for 10 Days, #14 TAB 0 Refills 09/22/19 Hydrocodone/Apap 5-325 (NORCO 5-325 TABLET) 1 Each Tablet, 1 TAB PO Q4-6HRS for PAIN, #20 TAB //20 Amlodipine Besylate (AMLODIPINE BESYLATE) 5 Mg Tablet, 5 MG PO DAILY for heart, TAB 20 Aspirin (ASPIR-LOW) 81 Mg Tablet.dr, 81 MG PO DAILY for blood thinner, TAB.SR 09/21/19 Sevelamer Carbonate (RENVELA) 800 Mg Tablet, 800 MG PO TIDWMEALS for dialysis vitamin, TAB 20 Atorvastatin Calcium (Atorvastatin Calcium) 80 Mg Tablet, 80 MG PO QHS for FOR HIGH CHOLESTEROL, TAB 20 Gabapentin (GABAPENTIN ) 100 Mg Capsule, 100 MG PO TID for NEUROGENIC PAIN, CAP 09/21/19 Losartan Potassium (LOSARTAN POTASSIUM ) 25 Mg Tablet, 25 MG PO DAILY for HYPERTENSION, TAB 20 Metoprolol Succinate (METOPROLOL SUCCINATE ( XL )) 25 Mg Tab.er.24h, 25 MG PO BID for FOR HYPERTENSION, #30 TAB 0 Refills 09/21/19 Clopidogrel Bisulfate (CLOPIDOGREL) 75 Mg Tablet, 75 MG PO DAILY for TO PREVENT BLOOD CLOTS, #30 TAB 0 Refills 09/21/19 MNOSTER COWAN III DO Feb 08, 2020 13:11
--- NOTE | 2020-02-08 13:35 | NUR ---
SS following up with discharge planning. Discharge orders for home healthcare received. SS phoned and faxed discharge orders and referral to [facility]. Pt's RN notified.
--- NOTE | 2020-02-08 14:40 | DS ---
DATE OF DISCHARGE: 02/08/2020 ADMISSION DIAGNOSES: Sepsis; sacral decubitus ulcer; lactic acidosis; hypokalemia; hypomagnesemia; end-stage renal disease, on peritoneal dialysis; leukocytosis; nausea; vomiting; elevated troponin; elevated BNP. DISCHARGE DIAGNOSES: Resolving respiratory failure, resolving sepsis. HOSPITAL COURSE: The patient is a pleasant elderly female, who presented with sepsis and respiratory failure. She was admitted. We consulted GI, Nephrology, Cardiology, and Pulmonary Medicine. We have been doing aggressive wound care, IV antibiotics. The above consults were obtained. Over the past few days, she seems to have returned to her baseline. She is still quite weak, but this morning, when I saw her and examined her, her heart tones are normal, lungs are clear, she is doing well. We plan to discharge with home health. DISPOSITION: Home with home health. ACTIVITY: As tolerated. DIET: Low sodium. MEDICATIONS: Please see MRAD. TOTAL TIME: 32 minutes. MONSTER COWAN DO DR: JUSTIN/dionicio JOB#: [id number] / [id number]
[2020-02-08 15:00] VITALS: BP 91/53
[2020-02-08] MEDS ORDERED: LACT1CAP21 PO (16:23)
[2020-02-08] MEDS ORDERED: PANT40TA77 PO (16:24)
[2020-02-08] MEDS ORDERED: POTA20TA4 PO (16:27)
[2020-02-08] MEDS ORDERED: AMOX1TAB61 PO (16:29)
[2020-02-08] MEDS ORDERED: NYST100054 PO (16:33)
--- NOTE | 2020-02-08 18:12 | NUR ---
Discharge Note: BOBY ANGLIN CHANTILLY Discharge instructions and discharge home medications reviewed with Patient and a copy given. All questions have been answered and understanding verbalized. The following instructions and handouts were given: medication information for augmintin, protonix, and lactobacillus. Dressing change directions. Follow up care. Discontinued lines and drains: dicontinued IJ and applied appropriate dressing. Patient discharged to home health care with daughters via wheelchair.
[2020-02-09] MEDS ORDERED: VANCOMYCIN RANDOM LEVEL. MC ONE (05:00)
== END 2020-02-08 17:30 | disposition home health service (06) | DRG 871 ==
LOC: ER 12:39 → 1 WEST ICU 15:06 → 2 NORTH 02-05 08:03
PROVIDERS: ADMIT Internal Medicine; ATTEND Internal Medicine
PROC: 02HV33Z Insertion of Infusion Device into Superior Vena Cava, Percutaneous Approach (ICD-10-PCS; principal; 2020-02-02)
PROC: B548ZZA Ultrasonography of Superior Vena Cava, Guidance (ICD-10-PCS; 2020-02-02)
PROC: 3E1M39Z Irrigation of Peritoneal Cavity using Dialysate, Percutaneous Approach (ICD-10-PCS; 2020-02-03)
DX: A41.9 Sepsis, unspecified organism (principal); N18.6 End stage renal disease; J96.90 Respiratory failure, unspecified, unspecified whether with hypoxia or hypercapnia; R65.21 Severe sepsis with septic shock; I12.0 Hypertensive chronic kidney disease with stage 5 chronic kidney disease or end stage renal disease; N25.81 Secondary hyperparathyroidism of renal origin; I47.1 Supraventricular tachycardia; E11.22 Type 2 diabetes mellitus with diabetic chronic kidney disease; E11.51 Type 2 diabetes mellitus with diabetic peripheral angiopathy without gangrene; E83.42 Hypomagnesemia; L89.151 Pressure ulcer of sacral region, stage 1; E87.6 Hypokalemia; Z20.828 Contact with and (suspected) exposure to other viral communicable diseases; Z82.49 Family history of ischemic heart disease and other diseases of the circulatory system; Z86.73 Personal history of transient ischemic attack (TIA), and cerebral infarction without residual deficits; Z87.891 Personal history of nicotine dependence; Z89.611 Acquired absence of right leg above knee; Z89.612 Acquired absence of left leg above knee; Z99.2 Dependence on renal dialysis; Z79.82 Long term (current) use of aspirin; Z79.899 Other long term (current) drug therapy
CPT/HCPCS: 36415; 36556; 70450; 71045; 80048; 80061; 80076; 80202; 82607; 82805; 82962; 83540; 83550; 83605; 83615; 83690; 83735; 83880; 84207; 84484; 85007; 85025; 87040; 87493; 87505; 93005; 93306; 96365; 96366; 96368; J1644; J1815; J2543; J3370; J3475; J3480; J3490; J7040; 97530-GP; 99291-25; G0378; U0003-CS